=== PATIENT | male | born 1935 | race Caucasian/White ===

== ENCOUNTER 2016-05-27 07:47 | Day surgery (SDC) | payer MEDICARE ==
[~2016-05-27 07:47] MED LIST: AMIO200 PO; APIX5TAB PO; B COTAB3 PO; CARV12.52 PO; FISH1000 PO; FLAX100013 PO; MULT1TAB PO; SPIR25TA PO; VITA400C70 PO; VITA500T10 PO; [UNRECOGNIZED DRUG - CODE] PO
[2016-05-27] MEDS ORDERED: [UNRECOGNIZED DRUG - CODE] PO (08:27)
[2016-05-27] MEDS ORDERED: VITA10007 PO (08:27)
[2016-05-27] MEDS ORDERED: SPIR25TA PO (08:27)
[2016-05-27] MEDS ORDERED: AMIO200T PO (08:27)
[2016-05-27] MEDS ORDERED: CENTTAB PO (08:27)
[2016-05-27] MEDS ORDERED: APIX2.5T PO (08:27)
[2016-05-27] MEDS ORDERED: FLAX10006 PO (08:27)
[2016-05-27] MEDS ORDERED: VITACAP9 PO (08:27)
[2016-05-27] MEDS ORDERED: E-10CAP PO (08:27)
[2016-05-27] MEDS ORDERED: SACU1TAB7 PO (08:27)
[2016-05-27] MEDS ORDERED: CARV25TA PO (08:27)
[2016-05-27] MEDS ORDERED: ESSE250T PO (08:27)
[2016-05-27] MEDS ORDERED: CYAN1TAB24 SL (08:27)
[2016-05-27] MEDS ORDERED: METOPROLOL TARTRATE 25 MG TAB PO PRN (09:00)
[2016-05-27] MEDS ORDERED: SODIUM CHLORID 0.9% 500 ML IV SCH (09:00)
[2016-05-27] MEDS ORDERED: INSULIN HUMAN REGULAR 1,000 UNITS/10 ML VIAL SQ PRN (09:00)
[2016-05-27] MEDS ORDERED: LACTATED RINGER'S 1000 ML IV SCH (09:00)
--- NOTE | 2016-05-28 14:05 | EKG ---
Date Performed: 05/27/2016 Time Performed: 09:38:50 PTAGE: 80 years EKG: Atrial pacing Prolonged QT interval Possible inferior infarct - age undetermined Possible a nteroseptal infarct - age undetermined Lateral T wave changes may be due to myocardial ischemia Low Q RS voltages in precordial leads Abnormal ECG Since PREVIOUS TRACING , no significant change noted DOCTOR: Faisal Elizabeth Interpretating Date/Time 05/28/2016 13:59:36
--- NOTE | 2016-05-28 14:06 | EKG ---
Date Performed: 05/27/2016 Time Performed: 08:09:52 PTAGE: 80 years EKG: Sinus rhythm . Short WV interval Inferior infarct - age undetermined Lateral T wave changes may be due to myocardi al ischemia Since previous tracing, no significant change noted Abnormal ECG PREVIOUS TRACING : 03/08/2016 05.03 DOCTOR: Faisal Elizabeth Interpretating Date/Time 05/28/2016 13:59:53
--- NOTE | 2016-06-06 09:25 | MR ---
cc: PHILIP PARDO M.D. DATE: 05/27/2016 PROCEDURE Cardioversion. INDICATION Mr. Okeefe is a 80-year-old gentleman with congestive heart failure, atrial fibrillation, previous ablation and atrial fibrillation on anticoagulation, to undergo DC cardioversion. The risks, the nature and the benefit of the procedure are clearly stated to him. The risks include cardiac arrest, need for pacing, need for endotracheal intubation and even . The patient understood and agreed to proceed. PROCEDURE After written informed consent was obtained, the patient was brought to the cath unit where he was evaluated by the anesthesiologist. Once sedation was verified, anterolateral pads were placed. Subsequently, a 200 sync biphasic joule was delivered that converted the patient into sinus rhythm. The patient fully recuperated from anesthesia. No incident report. CONCLUSION Successful cardioversion. COMMENT AND RECOMMENDATION The patient is going to be observed and discharged home later today. MD ANGUS Andre/TRACEYL /8:55 AM /9:17 AM
[2016-09-04] MEDS ORDERED: WHEEMIS3 (15:57)
[2016-09-06] MEDS ORDERED: ALLO300T2 PO (08:15)
[2016-09-06] MEDS ORDERED: OXYC1TAB36 PO (08:15)
[2016-09-06] MEDS ORDERED: MAGN400T3 PO (08:15)
[2016-09-06] MEDS ORDERED: AMIO200T PO (08:15)
[2016-09-06] MEDS ORDERED: APIX2.5T PO (08:15)
[2016-09-06] MEDS ORDERED: SPIR25TA PO (08:15)
[2016-09-06] MEDS ORDERED: CENTTAB PO (08:15)
[2016-09-06] MEDS ORDERED: FURO20TA PO (08:15)
[2016-09-06] MEDS ORDERED: CIPR250T52 PO (08:15)
[2016-09-06] MEDS ORDERED: SACU1TAB PO (08:15)
[2016-09-06] MEDS ORDERED: CARV6.25 PO (08:15)
[2016-10-23] MEDS ORDERED: PERM5CRE11 TOPICAL (12:11)
[2016-10-23] MEDS ORDERED: NAPR500 PO (12:11)
[2016-10-25] MEDS ORDERED: HYDR-3133 PO (09:06)
== END 2016-05-27 10:00 | disposition home or self-care (01) ==
LOC: HSDC 07:47 → HDIC 07:49 → HSDC 10:00
PROVIDERS: ATTEND Internal Medicine Interventional Cardiology
DX: I48.91 Unspecified atrial fibrillation (principal); I11.0 Hypertensive heart disease with heart failure; I50.9 Heart failure, unspecified
CPT/HCPCS: 92960; 93005

== ENCOUNTER 2016-08-19 14:32 | Inpatient (IN) | payer MEDICARE ==
[~2016-08-19] VITALS: Ht 177.8 cm; Wt 143.5 kg
[~2016-08-19 14:32] MED LIST changes: -AMIO200 PO; +AMIO200T PO; +APIX2.5T PO; -APIX5TAB PO; -B COTAB3 PO; -CARV12.52 PO; +CARV25TA PO; +CENTTAB PO; +CYAN1TAB24 SL; +E-10CAP PO; +ESSE250T PO; -FISH1000 PO; -FLAX100013 PO; +FLAX10006 PO; -MULT1TAB PO; +SACU1TAB7 PO; +VITA10007 PO; -VITA400C70 PO; -VITA500T10 PO; +VITACAP9 PO; -[UNRECOGNIZED DRUG - CODE] PO
--- NOTE | 2016-08-21 10:13 | MH ---
cc: Solitario HAYES M.D. DATE OF ADMISSION: 08/22/2016 ADMISSION DIAGNOSIS Failed left total knee arthroplasty, now for revision total knee arthroplasty. HISTORY OF PRESENT ILLNESS This is a pleasant 80-year-old male who is being admitted today for removal of hardware and revision of left total knee arthroplasty due to pain and disability and failed left knee arthroplasty. PAST MEDICAL HISTORY The patient had the left total knee done 12 years ago with a partial knee replacement and then had to have the tibia plated five years ago to prevent collapse. OTHER PAST HISTORY 1. The patient has a history of arthritis. 2. Heart disease, has a defibrillator. 3. Hypertensive. 4. Low back pain. CURRENT MEDICATIONS Include: 1. Amiodarone. 2. Carvedilol. 3. Eliquis, which is stopped before surgery. 4. Entresto. PREVIOUS SURGERIES 1. Both left and right knee surgeries. 2. Three cardiac ablations. 3. Cardioverter implant. 4. Hemorrhoid surgery. REVIEW OF SYSTEMS Noncontributory. FAMILY HISTORY Noncontributory. SOCIAL HISTORY The patient does not smoke, does drink some. ALLERGIES No allergies. PHYSICAL EXAMINATION GENERAL: We find an 80-year-old male, well-developed, well-nourished, oriented x3, complaining of pain in his left knee. VITAL SIGNS: Blood pressure 118/70, pulse 76 and regular, respirations 18, temperature 97.7, pulse oximetry 97% on room air. HEENT: Eyes PERRLA, EOMI. Ears, nose, mouth clear. NECK: Supple. LUNGS: Clear. HEART: Regular rate. ABDOMEN: Soft. Positive bowel sounds, nontender. EXTREMITIES: Reveal the left knee to be tender with range of motion from almost full extension, 95 degrees of flexion. Neurovascularly intact to his toes. IMPRESSION AT THIS TIME Failing left partial knee replacement with plate and screws in the proximal tibia. PLAN Admission for removal of plate and screws and revision total knee arthroplasty left side. The patient understands the procedure well and risks involved. He is given a prescription for postoperative pain control in the office. Will plan on going home after surgical stay. He understands the use of Hibiclens scrub and Bactroban preoperatively. J. MD KRUPA Porter/TLL /9:39 AM /9:45 AM
[2016-08-22 06:26] VITALS: BP 107/71; PULSE 68; RESP 18; TEMP 97.8; O2SAT 96
[2016-08-22] MEDS ORDERED: LACTATED RINGER'S 1000 ML IV PRN (06:30)
[2016-08-22] MEDS ORDERED: SODIUM CHLORID 0.9% 500 ML IV PRN (06:30)
[2016-08-22] MEDS ORDERED: METOPROLOL TARTRATE 25 MG TAB PO PRN (06:30)
[2016-08-22] MEDS ORDERED: ceFAZolin 2 GM PREMIX 50 ML IV SCH (06:30)
[2016-08-22] MEDS ORDERED: VANCOMYCIN 1000 MG/NS 250 ML (for <70 kg) IV SCH ×2 (06:30)
[2016-08-22] MEDS ORDERED: INSULIN HUMAN REGULAR 1,000 UNITS/10 ML VIAL SQ PRN (06:30)
[2016-08-22] MEDS ORDERED: ACETAMINOPHEN 1000 MG/100 ML VIAL IV ONE (07:53)
[2016-08-22] MEDS: SODIUM CHLORIDE 0.9% IV SCH ×4 (08:00→11:40)
[2016-08-22] MEDS: TRANEXAMIC ACID IV SCH ×4 (08:00→11:40)
--- NOTE | 2016-08-22 08:23 | HHI.FF ---
Face to Face Verification Diagnosis: (1) Status post revision of total replacement of left knee Physical Therapy Gait training Knee: Total knee, Protocol: Left, Full weight bearing Canvas Knee Splint: When in bed & 2 pillows btw thighs Nursing RN: 3 days/week x 2 weeks Nursing: Edwin teaching, Dressing changes Dressing Changes: Daily dressing change, 4x4s, Gauze, Paper tape I have seen patient Florentin Okeefe on 08/22/16. My clinical findings support the need for the requested home health care services because: Limited ability to care for self High risk of falls I certify that my clinical findings support that this patient is homebound because: Unsteady gait/balance Solitario Dunn MD Aug 22, 2016 08:23
[2016-08-22] MEDS ORDERED: CPMMACHINE (08:25)
[2016-08-22] MEDS ORDERED: MISC-163 (08:25)
[2016-08-22] MEDS ORDERED: WALKER WHEELS/F1 MIS (08:25)
[2016-08-22] MEDS ORDERED: diphenhydrAMINE HCL 50 MG/ML VIAL IV PRN (08:30)
[2016-08-22] MEDS ORDERED: TRANEXAMIC ACID INJ 0 MG in SODIUM CHLORIDE 0.9% INJ 100 ML IV SCH (08:30)
[2016-08-22] MEDS ORDERED: TEMAZEPAM 15 MG CAP PO PRN (08:30)
[2016-08-22] MEDS ORDERED: ACETAMINOPHEN/HYDROcodone 325 MG/7.5 MG TAB PO PRN (08:30)
[2016-08-22] MEDS ORDERED: NALOXONE HCL 0.4 MG/ML AMP IV PRN (08:30)
[2016-08-22] MEDS ORDERED: ONDANSETRON HCL 4 MG/2 ML VIAL IVP PRN (08:30)
[2016-08-22] MEDS ORDERED: ACETAMINOPHEN 325 MG TAB PO PRN (08:30)
[2016-08-22] MEDS ORDERED: SODIUM CHLORIDE 0.9% FLUSH 5 ML FLUSH IVF PRN (08:30)
[2016-08-22] MEDS ORDERED: Post-op Orders (for Pharmacy) MISC XX ONE (08:30)
[2016-08-22] MEDS ORDERED: ceFAZolin INJ 1,000 MG VIAL TOP ONE (08:53)
[2016-08-22] MEDS ORDERED: SPIRONOLACTONE 25 MG TAB PO SCH (09:00)
[2016-08-22] MEDS ORDERED: CARVEDILOL 12.5 MG TAB PO SCH (09:00)
[2016-08-22] MEDS ORDERED: MULTIVITAMIN HEMATINIC THERAPEUTIC TAB PO SCH (09:00)
[2016-08-22] MEDS ORDERED: NON-FORMULARY DRUG (Flaxseed (Linseed) (Flaxseed Oil) 1,000 MG) PO SCH (09:00)
[2016-08-22] MEDS ORDERED: TOBRAMYCIN SULFATE 1200 MG VIAL ONE (09:02)
[2016-08-22] MEDS ORDERED: BUPIVACAINE HCL PF 0.5% 30 ML VIAL NERV BLOCK ONE (10:11)
[2016-08-22] MEDS ORDERED: TOBRAMYCIN SULFATE 1200 MG VIAL OTHER ONE (10:23)
[2016-08-22 12:29] LABS: BLOOD GAS BASE EXCESS -4.1 mmol/L (-2-2); BLOOD GAS CARBOXYHEMOGLOBIN 1.7 % (0-4); BLOOD GAS HCO3 20 mmol/L (22-26); BLOOD GAS METHEMOGLOBIN 1.3 % (0-2); BLOOD GAS O2 HGB SATURATION 96 % (90-100); BLOOD GAS OXYGEN CONTENT 18.6 Vol % (12.0-20.0); BLOOD GAS PCO2 34 mmHg (38-42); BLOOD GAS PO2 218 mmHg (61-120); BLOOD GAS TOTAL HGB 13.4 G/DL (12.0-16.0); CRITICAL VALUE NO; OXYGEN DEVICE VENTILATOR; TEMP CORR TO 98.6
[2016-08-22 12:30] LABS: DRAW SITE ART LINE; STAT YES
[2016-08-22 12:37] LABS: HEMATOCRIT 38.3 % (39.0-51.0); REVIEW FLAG FINAL
[2016-08-22] MEDS ORDERED: ePHEDrine/NS 25 MG/5 ML SYR IV ONE (13:21)
[2016-08-22] MEDS ORDERED: ONDANSETRON HCL 4 MG/2 ML VIAL IV PUSH ONE (13:21)
[2016-08-22] MEDS ORDERED: PROPOFOL 200 MG/20 ML AMP IV ONE (13:21)
[2016-08-22] MEDS ORDERED: NORMOSOL R INJ 1,000 ML IV ONE (13:23)
[2016-08-22] MEDS ORDERED: LACTATED RINGER'S 1000 ML INJ 2,000 ML IV ONE (13:23)
[2016-08-22] MEDS ORDERED: ceFAZolin INJ 1,000 MG VIAL IV ONE (13:25)
[2016-08-22] MEDS ORDERED: fentaNYL CITRATE 250 MCG/5 ML AMP ONE (14:55)
[2016-08-22] MEDS ORDERED: MIDAZOLAM HCL 2 MG/2 ML VIAL ONE (14:55)
[2016-08-22] MEDS ORDERED: DO NOT ADM ANY ANTICOAGULANT DRUGS PRN (15:15)
[2016-08-22] MEDS ORDERED: NOREPINEPHRINE 4 MG/4 ML AMP ONE (15:30)
--- NOTE | 2016-08-22 15:35 | RADRPT ---
EXAM DATE/TIME: 08/22/2016 14:35 [facility] COMPARISON: TIBIA LEFT (AP/LAT), August 25, 2009, 9:24. INDICATIONS : Post op left knee. MEDICAL HISTORY : None. SURGICAL HISTORY : None. ENCOUNTER: Initial ACUITY: 1 day PAIN SCORE: Non-responsive. LOCATION: Left knee FINDINGS: Postoperative total knee arthroplasty with long femoral and tibial shaft components. Prominent deep soft tissue gas anteriorly. Alignment bony structures is maintained. CONCLUSION: Total knee arthroplasty with near-anatomic alignment. Sam Frank MD on August 22, 2016 at 15:20 Board Certified Radiologist. This report was verified electronically.
[2016-08-22] MEDS ORDERED: LACTATED RINGER'S 1000 ML INJ 500 ML IV ONE (15:45)
[2016-08-22] MEDS ORDERED: NOREPINEPHRINE 4 MG/D5W 250 ML IV SCH (15:45)
--- NOTE | 2016-08-22 16:11 | PD.CONS ---
HPI Service Family Medicine Consult Requested By Dr. Dunn Reason for Consult Post-op management of chronic medical conditions Primary Care Physician Hussein Lynn MD History of Present Illness 80 yo with PMH of AFib on Eliquis, HTN presenting for revision of left knee replacement. Seen in PACU POD 0. At present he feels well but tired. He also has some lower back discomfort relieved by sitting up. He tolerated the procedure well but required neosynephrine to maintain blood pressures. BP was running low (80s/40s) in PACU and Levophed drip started by anesthesia. He denies CP/SOB, abdominal pain, headache, or vision changes. He has fatigue. ( Marek Hernandez MD R1) Review of Systems Constitutional: COMPLAINS OF: Fatigue, DENIES: Fever Eyes: DENIES: Eye pain Ears, nose, mouth, throat: DENIES: Ear Pain Respiratory: DENIES: Shortness of breath Cardiovascular: DENIES: Chest pain, Palpitations Gastrointestinal: DENIES: Abdominal pain Genitourinary: DENIES: Dysuria Musculoskeletal: COMPLAINS OF: Back pain Integumentary: DENIES: Rash Hematologic/lymphatic: DENIES: Bruising Neurologic: DENIES: Headache Psychiatric: DENIES: Confusion, Depression (Marek Hernandez MD R1) Past Family Social History Past Medical History Atrial fibrillation on Eliquis, s/p ablation 03/08/16 HTN Back pain Past Surgical History L knee replacement 2002 Revision left knee replacement 08/22/16 ICD placement Hemorrhoid surgery (Marek Hernandez MD R1) Allergies: Coded Allergies: No Known Allergies (Verified , 08/22/16) Family History No major medical problems Social History Tobacco: does not smoke Alcohol: drinks 2-3 [place] & cokes a day Drugs: Never used illicit drugs (Marek Hernandez MD R1) Physical Exam Vital Signs Vital Signs Date Time Temp Pulse Resp B/P Pulse Ox O2 Delivery O2 Flow Rate FiO2 08/22/16 06:26 97.8 68 18 107/71 96 Physical Exam GENERAL: WDWN elderly white male sitting up in bed fatigued but in NAD SKIN: No rashes, ecchymoses or lesions. Cool and dry. HEAD: NC/AT EYES: PERRL. EOMI. No conjunctival injection or drainage. ENT: MMM, OP without erythema, tonsillar swelling, or exudate. NECK: No JVD. CARDIOVASCULAR: NRRR. Normal S1/S2. No MRG. RESPIRATORY: CTAB. No crackles or wheezes. GASTROINTESTINAL: Abdomen soft, non-distended, non-tender. No hepato- splenomegaly or palpable masses. MUSCULOSKELETAL: Extremities without clubbing, cyanosis, or edema. Compression bracing in place around left knee. NEUROLOGICAL: Awake and alert. Cranial nerves II through XII grossly intact. Moves all extremities without difficulty. Normal speech. Laboratory Laboratory Tests Test 08/22/16 08/22/16 08/22/16 06:15 12:15 12:20 Blood Type B POSITIVE Antibody Screen NEGATIVE Hemoglobin 13.3 Hematocrit 38.3 Blood Gas Puncture Site ART LINE Blood Gas Patient Temperature 98.6 Blood Gas HCO3 20 Blood Gas Base Excess -4.1 Blood Gas Oxygen Saturation 96 Arterial Blood pH 7.38 Arterial Blood Partial 34 Pressure CO2 Arterial Blood Partial 218 Pressure O2 Arterial Blood Oxygen Content 18.6 Arterial Blood 1.7 Carboxyhemoglobin Arterial Blood Methemoglobin 1.3 Blood Gas Hemoglobin 13.4 Oxygen Delivery Device VENTILATOR Blood Gas Ventilator Setting Date/Time Procedure Status Source Growth 08/22/16 10:09 Gram Stain - Final Resulted Wound Knee 08/22/16 10:09 Wound Culture Resulted Wound Knee Pending 08/22/16 10:09 Fungal Smear Received Wound Knee Pending 08/22/16 10:09 Fungal Culture Received Wound Knee Pending 08/22/16 10:09 Acid Fast Stain Received Wound Knee Pending 08/22/16 10:09 Mycobacterial Culture Received Wound Knee Pending (Marek Hernandez MD R1) Result Diagram: 08/22/16 1215 Imaging Last Impressions Knee X-Ray 08/22/16 0819 Signed Impressions: Service Date/Time: August 14:35 - CONCLUSION: Total knee arthroplasty with near-anatomic alignment. Sam Frank MD (Marek Hernandez MD R1) Assessment and Plan Assessment and Plan 80 year old male with PMH of AFib on Eliquis, HTN presenting with: Code Status Full code (Marek Hernandez MD R1) Attending Attestation Patient seen and examined, discussed with resident team. I agree with assessment and management as documented and discussed with me. Florentin Okeefe is an 80 yo gentleman with a fib, AICD placement for which medical team was consulted after orthopedic surgery. Apparently, during his surgery, he required pressure support with neosynephrine. Postoperatively in PACU, he remained hypotensive and Levophed drip was initiated. He reports feeling tired, weak, and lightheaded. He denies chest pain, palpitations, SOB. Will transfer patient to ICU for overnight monitoring and continued blood pressure support. Wean Levophed as able. Will need to address residential anticoagulation; he is currently on Lovenox postoperatively, but will need resumption of Eliquis after completion of Lovenox course. (Embre Blanco MD) Problem List: (1) Status post revision of total replacement of left knee Status: Acute Plan: POD 0 s/p revision L total knee * Bracing per ortho * Pain control with Percocet 5 and 10 PRN pain 3-5 and 6-10, respectively * PT eval & treat * Manage post-operative hypotension as below * Telemetry for post-op monitoring of patient with cardiac history (2) Postoperative hypotension Status: Acute Plan: Needed neosynephrine intraoperatively, currently requiring Levophed drip to maintain MAP > 60. * Transfer to ICU for closer monitoring * Continue Levophed drip, titrate as tolerated * Likely due to anesthesia; if resolves overnight can be transferred to floor tomorrow (3) Atrial fibrillation Status: Chronic Plan: Eliquis currently being held, CHADS2-Vasc score of 3 --> 3.2% stroke risk per year, HAS-BLED score 2 --> intermediate risk of bleed. Likely benefits of anticoagulation outweigh risks. * Holding home Eliquis after surgery * On lovenox 30 mg BID per ortho * Will need resumption of anticoagulation with Eliquis after lovenox D/C'd (4) Essential hypertension Status: Chronic Plan: Hold home hypertensive medications due to postoperative hypotension above (5) FEN/PPX Status: Acute Plan: Fluids: PO only Elecs: Monitor and replete as needed Nutrition: Advance diet as tolerated DVT: Lovenox [address] Chacho Blanco (Marek Hernandez MD R1) Problem Qualifiers (1) Atrial fibrillation: Qualified Code: I48.0 - Paroxysmal atrial fibrillation Marek Hernandez MD R1 Aug 22, 2016 16:11 Ember Blanco MD Aug 22, 2016 20:51
[2016-08-22 16:13] LABS: HEMATOCRIT 35.3 % (39.0-51.0); REVIEW FLAG FINAL
[2016-08-22] MEDS: LACTATED RINGER'S 1000 ML INJ 1,000 ML IV SCH ×2 (16:40→21:59)
[2016-08-22] MEDS: MORPHINE SULFATE 30 MG/30 ML PCA IV SCH (16:43)
[2016-08-22 19:50] VITALS: O2SAT 99
[2016-08-22 20:00] VITALS: BP 134/69; PULSE 66; RESP 15; TEMP 97.7; O2SAT 98
[2016-08-22] MEDS: CYANOCOBALAMIN 1,000 MCG TAB PO SCH ×2 (21:00→21:59)
[2016-08-22] MEDS: SODIUM CHLORIDE 0.9% FLUSH 5 ML FLUSH IVF SCH (21:00)
[2016-08-22] MEDS: PCA - TOTAL MG MORPHINE DELIVERED PER SHIFT SCH (22:00)
[2016-08-22] MEDS ORDERED: FLUMAZENIL 0.5 MG/5 ML VIAL IV PUSH PRN (22:30)
[2016-08-22] MEDS ORDERED: LORazepam 2 MG/ML VIAL IV PUSH PRN (22:30)
[2016-08-22] MEDS ORDERED: LORazepam 2 MG TAB PO PRN (22:30)
[2016-08-22] MEDS ORDERED: LORazepam 1 MG TAB PO PRN (22:30)
[2016-08-22 23:00] VITALS: PULSE 66
--- NOTE | 2016-08-22 23:08 | PD.CONS ---
[facility] Service Critical Care Medicine Consult Requested By Primary Care Physician Hussein Lynn MD History of Present Illness 80 with history of atrial fibrillation hypertension now presenting for removal of hardware and revision of left total knee arthroplasty due to pain and disability and failure of left knee arthroplasty. Hypotension - Post general anesthesia - Volume resuscitation with IV fluids - Off Levophed and Benigno-Synephrine during my exam - Resolved Failure total knee endoprosthesis - Status post revision of total replacement of left knee - Postop day 0 - PT and OT eval and treat - Ancef postoperatively - Management per orthopedic surgeon Atrial fibrillation - Chronic and rate controlled - Resume Eliquis when okay with the surgeon - Currently bridged with Lovenox twice a day - Continue amiodarone History of Essential hypertension - Hold home by mouth meds do to hypotension - Resume when hemodynamically improved DVT GI prophylaxis - Regular diet - Lovenox twice a day Critical Care: The total critical care time was 35 minutes. Time to perform other separately billable procedures was not included in the critical care time. Review of Systems Constitutional: DENIES: Diaphoretic episodes, Fatigue, Fever, Weight gain, Weight loss, Chills, Dizziness, Change in appetite, Night Sweats Endocrine: DENIES: Heat/cold intolerance, Polydipsia, Polyuria, Polyphagia Eyes: DENIES: Blurred vision, Diplopia, Eye inflammation, Eye pain, Vision loss , Photosensitivity, Double Vision Ears, nose, mouth, throat: DENIES: Tinnitus, Hearing loss, Vertigo, Nasal discharge, Oral lesions, Throat pain, Hoarseness, Ear Pain, Running Nose, Epistaxis, Sinus Pain, Toothache, Odynophagia Respiratory: DENIES: Apneas, Cough, Snoring, Wheezing, Hemoptysis, Sputum production, Shortness of breath Cardiovascular: DENIES: Chest pain, Palpitations, Syncope, Dyspnea on Exertion , PND, Lower Extremity Edema, Orthopnea, Claudication Gastrointestinal: DENIES: Abdominal pain, Black stools, Bloody stools, Constipation, Diarrhea, Nausea, Vomiting, Difficulty Swallowing, Anorexia Genitourinary: DENIES: Sexual dysfunction, Urinary frequency, Urinary incontinence, Urgency, Hematuria, Dysuria, Nocturia, Penile Discharge, Testicular Pain, Testicular Swelling Musculoskeletal: COMPLAINS OF: Joint pain, Stiffness, DENIES: Muscle aches, Joint Swelling, Back pain, Neck pain Integumentary: DENIES: Abnormal pigmentation, Nail changes, Pruritus, Rash Hematologic/lymphatic: DENIES: Bruising, Lymphadenopathy Immunologic/allergic: DENIES: Eczema, Urticaria Neurologic: COMPLAINS OF: Abnormal gait, DENIES: Headache, Localized weakness , Paresthesias, Seizures, Speech Problems, Tremor, Poor Balance Psychiatric: DENIES: Anxiety, Confusion, Mood changes, Depression, Hallucinations, Agitation, Suicidal Ideation, Homicidal Ideation, Delusions Past Family Social History Allergies: Coded Allergies: No Known Allergies (Verified , 08/22/16) Past Medical History Atrial fibrillation on Eliquis Status post ablation in 03/08/16 Hypertension Chronic back pain Past Surgical History Hemorrhoid Left knee replacement 2002 Revision of left knee replacement today ICD Reported Medications Reported Meds & Active Scripts Active Reported E-1000 (Vitamin E) 1,000 Unit Cap 1,000 Units PO DAILY Vitamin C (Ascorbic Acid) 1,000 Mg Tab 1,000 Mg PO DAILY Vitamin B Complex-C (B Complex W/ C) 1 Cap Cap 1 Tab PO DAILY Spironolactone 25 Mg Tab 25 Mg PO DAILY Magnesium 250 Mg Tab 500 Mg PO DAILY Flaxseed Oil (Flaxseed (Linseed)) 1,000 Mg Cap 1,000 Mg PO DAILY Entresto (Sacubitril-Valsartan) 49-51 Mg Tab 1 Tab PO DAILY Eliquis (Apixaban) 2.5 Mg Tab 2.5 Mg PO BID Centrum Silver (Multiple Vitamins W/ Minerals) 1 Tab 1 Tab PO DAILY Carvedilol 25 Mg Tab 25 Mg PO BID B12 (Cyanocobalamin) 1,000 Mcg Tab 5,000 Mcg SL BID Amiodarone (Amiodarone HCl) 200 Mg Tab 200 Mg PO DAILY Active Ordered Medications Current Medications Medications (Trade) Dose Ordered Sig/Kenny Route PRN Reason Start Time Stop Time Status Last Admin Dose Admin Chlorhexidine Gluconate (Hibiclens 4% Top Soln) 1 applic ONCE TOPICAL 08/22/16 06:30 08/25/16 06:29 Amiodarone HCl (Cordarone) 200 mg DAILY PO 08/22/16 09:00 Ascorbic Acid (Vitamin C) 1,000 mg DAILY PO 08/22/16 09:00 Vitamin B Complex/ Vitamin C (Allbee C) 1 tab DAILY PO 08/23/16 09:00 Carvedilol (Coreg) 25 mg BID PO 08/22/16 09:00 Hold Patient Own Medication PT OWN MED: ENTRE... DAILY PO 08/23/16 09:00 Future Hold Spironolactone (Aldactone) 25 mg DAILY PO 08/22/16 09:00 Hold Cyanocobalamin (Vitamin B12) 5,000 mcg BID PO 08/22/16 21:00 Magnesium Oxide (Mag-Ox) 400 mg DAILY PO 08/23/16 09:00 Vitamin E 800 units 800 units DAILY PO 08/23/16 09:00 Lactated Ringer's (Lr 1000 ml Inj) 1,000 ml @ 80 mls/hr [id number] IV 08/22/16 08:19 08/22/16 21:59 IV Flush (NS Flush) 2 ml UNSCH PRN IVF FLUSH AFTER USING IV ACCESS 08/22/16 08:30 IV Flush 2 ml 2 ml BID IVF 08/22/16 09:00 Cefazolin Sodium/ Sodium Chloride (Ancef Inj/NS Inj) 100 ml @ 200 mls/hr Q6H IV 08/22/16 16:00 08/23/16 04:29 08/22/16 21:59 Enoxaparin Sodium (Lovenox Inj) 30 mg Q12H SQ 08/23/16 13:00 Acetaminophen/ Hydrocodone Bitart (Bowie 7.5-325 Mg) 1 tab Q4H PRN PO PAIN SCALE 3 TO 5 08/22/16 08:30 Acetaminophen/ Hydrocodone Bitart (Bowie 7.5-325 Mg) 2 tab Q4H PRN PO PAIN SCALE 5 TO 10 08/22/16 08:30 Acetaminophen (Tylenol) 650 mg Q6H PRN PO pain and temp over 101 08/22/16 08:30 Multivitamins/ Minerals Therapeutic (Theragran M Tab) 1 tab BID PO 08/23/16 21:00 10/22/16 20:59 Ondansetron HCl (Zofran Inj) 4 mg Q6H PRN IVP NAUSEA OR VOMITING 08/22/16 08:30 Docusate Sodium (Colace) 100 mg BID PO 08/23/16 21:00 Temazepam (Restoril) 15 mg HS PRN PO SLEEP 08/22/16 08:30 Naloxone HCl (Narcan Inj) 0.4 mg UNSCH PRN IV RESPIRATORY RATE LESS THAN 10 4/6/17 08:30 Diphenhydramine HCl (Benadryl Inj) 25 mg Q6H PRN IV ITCHING 08/22/16 08:30 Morphine Sulfate (Morphine 1 Mg/ ml RENEWALS REPRESENTATIVE) 30 mg UNSCH IV 08/22/16 08:30 08/22/16 16:43 RENEWALS REPRESENTATIVE Dosage Infused (Pha) 1 Q8HR .XX 08/22/16 14:00 Miscellaneous Information ALL NURSING DEPARTME... UNSCH PRN .XX SEE LABEL COMMENTS 08/22/16 15:15 08/23/16 15:14 Norepinephrine Bitartrate (Levophed-Dextrose Drip) 250 ml @ 0 mls/hr TITRATE IV 08/22/16 15:45 Folic Acid (Folate) 1 mg DAILY PO 08/23/16 09:00 08/28/16 08:59 Thiamine HCl (Vitamin B1) 100 mg DAILY PO 08/23/16 09:00 Flumazenil (Romazicon Inj) 0.2 mg Q1M PRN IV PUSH SEE LABEL COMMENTS 08/22/16 22:30 Lorazepam (Ativan) 1 mg Q4H PRN PO CIWA 8 - 10 08/22/16 22:30 Lorazepam (Ativan) 2 mg Q2H PRN PO CIWA 11-14 08/22/16 22:30 Lorazepam (Ativan Inj) 2 mg Q15M PRN IV PUSH CIWA > 20 08/22/16 22:30 Family History Noncontributory Social History Negative 3 Physical Exam Vital Signs Vital Signs Date Time Temp Pulse Resp B/P Pulse Ox O2 Delivery O2 Flow Rate FiO2 08/22/16 20:00 97.7 66 15 134/69 98 08/22/16 18:50 98.4 65 20 115/73 98 Nasal Cannula 2 08/22/16 18:45 65 20 115/73 98 Nasal Cannula 2 08/22/16 18:30 64 20 113/72 98 Nasal Cannula 2 08/22/16 18:15 62 20 114/72 99 Nasal Cannula 2 08/22/16 18:00 64 20 111/68 99 Nasal Cannula 2 08/22/16 17:45 64 20 115/71 99 Nasal Cannula 2 08/22/16 17:30 64 20 113/73 99 Nasal Cannula 2 4/6/17 17:15 65 20 109/59 93 Nasal Cannula 2 08/22/16 17:00 63 20 111/68 99 Nasal Cannula 2 08/22/16 16:45 64 20 119/66 98 Nasal Cannula 2 08/22/16 16:43 16 08/22/16 16:30 65 20 120/71 98 Nasal Cannula 2 08/22/16 16:15 64 20 113/66 97 Nasal Cannula 2 08/22/16 16:00 66 20 102/65 97 Nasal Cannula 2 08/22/16 15:45 67 20 111/68 97 Nasal Cannula 2 08/22/16 15:30 65 20 89/57 97 Nasal Cannula 2 08/22/16 15:15 60 20 86/54 95 Nasal Cannula 2 08/22/16 15:00 64 20 97/60 96 Nasal Cannula 2 08/22/16 14:40 98.4 62 20 98/58 97 Nasal Cannula 2 08/22/16 06:26 97.8 68 18 107/71 96 Physical Exam GENERAL: Obese elderly man. SKIN: Warm and dry. HEAD: Normocephalic. EYES: No scleral icterus. No injection or drainage. NECK: Supple, trachea midline. No JVD or lymphadenopathy. CARDIOVASCULAR: Regular rate and rhythm without murmurs, gallops, or rubs. RESPIRATORY: Breath sounds equal bilaterally. No accessory muscle use. GASTROINTESTINAL: Abdomen soft, non-tender, nondistended. MUSCULOSKELETAL: No cyanosis, or edema. BACK: Nontender without obvious deformity. No CVA tenderness. EXTREMITIES: Status post left knee arthroplasty, wound is clean without signs of infection inflammation or bleeding Laboratory Laboratory Tests Test 08/22/16 08/22/16 08/22/16 08/22/16 06:15 12:15 12:20 15:51 Blood Type B POSITIVE Antibody Screen NEGATIVE Hemoglobin 13.3 12.1 Hematocrit 38.3 35.3 Blood Gas Puncture Site ART LINE Blood Gas Patient Temperature 98.6 Blood Gas HCO3 20 Blood Gas Base Excess -4.1 Blood Gas Oxygen Saturation 96 Arterial Blood pH 7.38 Arterial Blood Partial 34 Pressure CO2 Arterial Blood Partial 218 Pressure O2 Arterial Blood Oxygen Content 18.6 Arterial Blood 1.7 Carboxyhemoglobin Arterial Blood Methemoglobin 1.3 Blood Gas Hemoglobin 13.4 Oxygen Delivery Device VENTILATOR Blood Gas Ventilator Setting Date/Time Procedure Status Source Growth 08/22/16 10:09 Gram Stain - Final Resulted Wound Knee 08/22/16 10:09 Wound Culture Resulted Wound Knee Pending 08/22/16 10:09 Fungal Smear - Final Resulted Wound Knee NO FUNGAL ELEMENTS SEEN. 08/22/16 10:09 Fungal Culture Resulted Wound Knee Pending 08/22/16 10:09 Acid Fast Stain Received Wound Knee Pending 08/22/16 10:09 Mycobacterial Culture Received Wound Knee Pending Result Diagram: 08/22/16 1551 Imaging Last 24 hours Impressions Knee X-Ray 08/22/16 0819 Signed Impressions: Service Date/Time: August 14:35 - CONCLUSION: Total knee arthroplasty with near-anatomic alignment. MD Sabiha Pérez Jan MD Aug 22, 2016 23:08
[2016-08-23] VITALS (13 sets, daily range): BP systolic 95–134; BP diastolic 41–57; PULSE 69–90; RESP 10–22; TEMP 97.6–99.1; O2SAT 22–98
[2016-08-23 04:56] LABS: HEMATOCRIT 35.1 % (39.0-51.0); MEAN CELL VOLUME 96.6 FL (80.0-100.0); MEAN CORPUSCULAR HEMOGLOBIN 32.8 PG (27.0-34.0); MEAN CORPUSCULAR HGB CONC 33.9 % (32.0-36.0); PLATELET COUNT 131 TH/MM3 (150-450); RED BLOOD COUNT 3.63 MIL/MM3 (4.50-5.90); RED CELL DISTRIBUTION WIDTH 13.4 % (11.6-17.2); REVIEW FLAG FINAL; WHITE BLOOD COUNT 11.7 TH/MM3 (4.0-11.0)
[2016-08-23 05:25] LABS: ALT (GPT) 26 U/L (12-78); ANION GAP 10 MEQ/L (5-15); AST (GOT) 27 U/L (15-37); BICARBONATE 23.2 MEQ/L (21.0-32.0); BLOOD UREA NITROGEN 17 MG/DL (7-18); CHLORIDE 109 MEQ/L (98-107); GLOMERULAR FILTRATION RATE 68 ML/MIN (>89); SODIUM (NA) 142 MEQ/L (136-145)
[2016-08-23 05:34] LABS: ALKALINE PHOSPHATASE 55 U/L (45-117); TOTAL BILIRUBIN ADULT 0.5 MG/DL (0.2-1.0)
[2016-08-23] MEDS: PCA - TOTAL MG MORPHINE DELIVERED PER SHIFT SCH ×3 (06:00→22:00)
[2016-08-23] MEDS: CHLORHEXIDINE GLUCONATE 4% SOLN 120 ML BTL TOPICAL SCH (06:30)
[2016-08-23] MEDS: SODIUM CHLORIDE 0.9% FLUSH 5 ML FLUSH IVF SCH ×2 (07:18→21:00)
--- NOTE | 2016-08-23 07:52 | PD.ORT.PN ---
Subjective Subjective Remarks Pt complaining of being in bed too long. No pain in leg or knee. Objective Vitals Vital Signs Date Time Temp Pulse Resp B/P Pulse Ox O2 Delivery O2 Flow Rate FiO2 08/23/16 07:00 94 Nasal Cannula 2.00 08/23/16 06:00 72 08/23/16 06:00 19 08/23/16 04:00 97.6 72 11 126/56 96 08/23/16 04:00 72 08/23/16 02:00 73 08/23/16 00:00 97.7 69 10 134/57 98 08/23/16 00:00 69 08/22/16 23:00 66 08/22/16 22:00 18 08/22/16 20:00 97.7 66 15 134/69 98 08/22/16 19:50 99 Nasal Cannula 4.00 08/22/16 18:50 98.4 65 20 115/73 98 Nasal Cannula 2 08/22/16 18:45 65 20 115/73 98 Nasal Cannula 2 08/22/16 18:30 64 20 113/72 98 Nasal Cannula 2 08/22/16 18:15 62 20 114/72 99 Nasal Cannula 2 08/22/16 18:00 64 20 111/68 99 Nasal Cannula 2 08/22/16 17:45 64 20 115/71 99 Nasal Cannula 2 08/22/16 17:30 64 20 113/73 99 Nasal Cannula 2 08/22/16 17:15 65 20 109/59 93 Nasal Cannula 2 08/22/16 17:00 63 20 111/68 99 Nasal Cannula 2 08/22/16 16:45 64 20 119/66 98 Nasal Cannula 2 08/22/16 16:43 16 08/22/16 16:30 65 20 120/71 98 Nasal Cannula 2 08/22/16 16:15 64 20 113/66 97 Nasal Cannula 2 08/22/16 16:00 66 20 102/65 97 Nasal Cannula 2 08/22/16 15:45 67 20 111/68 97 Nasal Cannula 2 08/22/16 15:30 65 20 89/57 97 Nasal Cannula 2 08/22/16 15:15 60 20 86/54 95 Nasal Cannula 2 08/22/16 15:00 64 20 97/60 96 Nasal Cannula 2 08/22/16 14:40 98.4 62 20 98/58 97 Nasal Cannula 2 I/O 08/22/16 08/22/16 08/22/16 08/23/16 08/23/16 08/23/16 07:00 15:00 23:00 07:00 15:00 23:00 Intake Total 3300 ml 1230 ml 635 ml Output Total 1000 ml 620 ml 275 ml Balance 2300 ml 610 ml 360 ml Intake IV Total 1230 ml 635 ml Other 3300 ml Output Urine Total 500 ml 620 ml 275 ml Estimated Blood Loss 500 ml # Bowel Movements 0 0 Result Diagram: 08/23/16 0435 08/23/16 0435 Imaging Last 24 hours Impressions Knee X-Ray 08/22/16 0819 Signed Impressions: Service Date/Time: August 14:35 - CONCLUSION: Total knee arthroplasty with near-anatomic alignment. Sam Frank MD Objective Remarks Dressing dry and intact. Moving toes well. No calf tenderness. Assessment & Plan Ortho Post Op Day #: 1 Problem List: Assessment and Plan Orthopedically doing well. To ortho floor when cleared by medical. Resume PT KENNETH. Solitario Dunn MD Aug 23, 2016 07:52
[2016-08-23] MEDS: THIAMINE HCL 100 MG TAB PO SCH (09:00)
[2016-08-23] MEDS: FOLIC ACID 1 MG TAB PO SCH (09:00)
[2016-08-23] MEDS: VITAMIN E 400 UNIT CAP PO SCH (09:00)
[2016-08-23] MEDS: MAGNESIUM OXIDE 400 MG TAB PO SCH (09:00)
[2016-08-23] MEDS: ASCORBIC ACID 500 MG TAB PO SCH (09:00)
[2016-08-23] MEDS: VITAMIN B COMPLEX/VIT C TAB PO SCH (09:00)
[2016-08-23] MEDS: CYANOCOBALAMIN 1,000 MCG TAB PO SCH ×2 (09:00→21:00)
[2016-08-23] MEDS ORDERED: MULTIVITAMINS/MINERALS THERAPEUTIC TAB PO SCH (09:00)
[2016-08-23] MEDS ORDERED: ENTRESTO PO SCH (09:00)
[2016-08-23] MEDS: AMIODARONE 200 MG TAB PO SCH (09:06)
[2016-08-23] MEDS: LACTATED RINGER'S 1000 ML INJ 1,000 ML IV SCH (09:07)
--- NOTE | 2016-08-23 10:58 | HHI.FPPN ---
Subjective Remarks Patient seen and examined. No acute events overnight. Levophed drip was discontinued at 7AM this morning and BP has been stable. He denies any specific complaints this morning, except for back pain, which is chronic and secondary to ankylosing spondylosis. (Yudi Recio MD R3) Objective Vitals Vital Signs Date Time Temp Pulse Resp B/P Pulse Ox O2 Delivery O2 Flow Rate FiO2 08/23/16 08:44 97 Nasal Cannula 2.00 08/23/16 08:00 84 08/23/16 08:00 98.3 84 17 123/52 94 08/23/16 07:00 94 Nasal Cannula 2.00 08/23/16 06:00 72 08/23/16 06:00 19 08/23/16 04:00 97.6 72 11 126/56 96 08/23/16 04:00 72 08/23/16 02:00 73 08/23/16 00:00 97.7 69 10 134/57 98 08/23/16 00:00 69 08/22/16 23:00 66 08/22/16 22:00 18 08/22/16 20:00 97.7 66 15 134/69 98 08/22/16 19:50 99 Nasal Cannula 4.00 08/22/16 18:50 98.4 65 20 115/73 98 Nasal Cannula 2 08/22/16 18:45 65 20 115/73 98 Nasal Cannula 2 08/22/16 18:30 64 20 113/72 98 Nasal Cannula 2 08/22/16 18:15 62 20 114/72 99 Nasal Cannula 2 08/22/16 18:00 64 20 111/68 99 Nasal Cannula 2 08/22/16 17:45 64 20 115/71 99 Nasal Cannula 2 08/22/16 17:30 64 20 113/73 99 Nasal Cannula 2 08/22/16 17:15 65 20 109/59 93 Nasal Cannula 2 08/22/16 17:00 63 20 111/68 99 Nasal Cannula 2 08/22/16 16:45 64 20 119/66 98 Nasal Cannula 2 08/22/16 16:43 16 08/22/16 16:30 65 20 120/71 98 Nasal Cannula 2 08/22/16 16:15 64 20 113/66 97 Nasal Cannula 2 08/22/16 16:00 66 20 102/65 97 Nasal Cannula 2 08/22/16 15:45 67 20 111/68 97 Nasal Cannula 2 08/22/16 15:30 65 20 89/57 97 Nasal Cannula 2 08/22/16 15:15 60 20 86/54 95 Nasal Cannula 2 08/22/16 15:00 64 20 97/60 96 Nasal Cannula 2 08/22/16 14:40 98.4 62 20 98/58 97 Nasal Cannula 2 I/O 08/22/16 08/22/16 08/22/16 08/23/16 08/23/16 08/23/16 07:00 15:00 23:00 07:00 15:00 23:00 Intake Total 3300 ml 1230 ml 635 ml Output Total 1000 ml 620 ml 275 ml Balance 2300 ml 610 ml 360 ml Intake IV Total 1230 ml 635 ml Other 3300 ml Output Urine Total 500 ml 620 ml 275 ml Estimated Blood Loss 500 ml # Bowel Movements 0 0 (Yudi Recio MD R3) Result Diagram: 08/23/16 0435 08/23/16 0435 Imaging Knee X-Ray 08/22/16 0819 Signed Impressions: Service Date/Time: August 14:35 - CONCLUSION: Total knee arthroplasty with near-anatomic alignment. Sam Frank MD Objective Remarks GENERAL: WDWN elderly white male lying in bed in NAD SKIN: No rashes, ecchymoses or lesions. Cool and dry. HEAD: NC/AT EYES: EOMI. No conjunctival injection or drainage. ENT: MMM, OP without erythema, tonsillar swelling, or exudate. NECK: No JVD. CARDIOVASCULAR: NRRR. Normal S1/S2. No MRG. Left dorsal pedis pulse is present but faint. RESPIRATORY: CTAB. No crackles or wheezes. GASTROINTESTINAL: Abdomen soft, non-distended, non-tender. No hepato- splenomegaly or palpable masses. MUSCULOSKELETAL: Extremities without clubbing, cyanosis, or edema. Able to move toes. Sensation in left leg intact. NEUROLOGICAL: Awake and alert. Normal speech. (Yudi Recio MD R3) A/P Assessment and Plan 80 year old male with PMH of AFib on Eliquis, HTN presenting with: Discharge Planning Patient should be stable for transfer out of ICU today given that he is no longer requiring pressors. Discharge to home vs. SNF pending ortho clearance. ( Yudi Recio MD R3) Attending Attestation Patient seen, examined, and discussed with resident team. I agree with assessment and management as documented and discussed with me. Pt denies significant complaints - postop knee pain and low back and neck pain. Otherwise, no chest pain, SOB, lightheadedness, weakness. Wean levophed as tolerated. Appreciate [place] and cardiology input. (Ember Blanco MD) Problem List: (1) Status post revision of total replacement of left knee Status: Acute Plan: POD 1 s/p revision L total knee secondary to pain and failed arthroplasty. Doing well. * Bracing per ortho * Pain control with Percocet 5 and 10 PRN pain 3-5 and 6-10, respectively * PT eval & treat (2) Postoperative hypotension Status: Acute Plan: Needed neosynephrine intraoperatively and required Levophed drip postoperatively. Likely due to anesthesia. Patient has been off drip since 7AM. BP stable. If BP continues to remain stable, will transfer to medical/ortho floor. (3) Atrial fibrillation Status: Chronic Plan: CHADS2-Vasc score of 3 --> 3.2% stroke risk per year, HAS-BLED score 2 -- > intermediate risk of bleed. * Eliquis was held prior to surgery. Patient currently on Lovenox 30 mg BID postoperatively per ortho * Will need resumption of anticoagulation with home Eliquis after lovenox D/C'd due to high risk. (4) Essential hypertension Status: Chronic Plan: Resume hole antihypertensive (5) Leukocytosis Status: Acute Plan: WBC 11.7. Likely reactive. VSSAF. Will continue to monitor. -Incentive spirometer (6) FEN/PPX Status: Acute Plan: Fluids: PO only Elecs: Monitor and replete as needed Nutrition: Advance diet as tolerated DVT: Lovenox [address] Blanco and Dr. Hernandez (Yudi Recio MD R3) Problem Qualifiers (1) Atrial fibrillation: Qualified Code: I48.0 - Paroxysmal atrial fibrillation Yudi Recio MD R3 Aug 23, 2016 10:58 Ember Blanco MD Aug 23, 2016 20:27
--- NOTE | 2016-08-23 11:35 | HHI.CCPN ---
Subjective Remarks/Hospital Course S/P TKA with moderate hypotension, now resolved. Objective Vital Signs Date Time Temp Pulse Resp B/P Pulse Ox O2 Delivery O2 Flow Rate FiO2 08/23/16 10:00 88 08/23/16 08:44 97 Nasal Cannula 2.00 08/23/16 08:00 98.3 17 123/52 Intake and Output 08/22/16 08/22/16 08/23/16 08:00 16:00 00:00 Intake Total 3800 ml 730 ml Output Total 1000 ml 620 ml Balance 2800 ml 110 ml Result Diagram: 08/23/16 0435 08/23/16 0435 Other Results Laboratory Tests Test 08/22/16 12:20 Blood Gas Puncture Site ART LINE Blood Gas Patient Temperature 98.6 Blood Gas HCO3 20 mmol/L (22-26) Blood Gas Base Excess -4.1 mmol/L (-2-2) Blood Gas Oxygen Saturation 96 % (90-100) Arterial Blood pH 7.38 (7.380-7.420) Arterial Blood Partial 34 mmHg (38-42) Pressure CO2 Arterial Blood Partial 218 mmHg Pressure O2 (61-120) Arterial Blood Oxygen Content 18.6 Vol % (12.0-20.0) Arterial Blood 1.7 % (0-4) Carboxyhemoglobin Arterial Blood Methemoglobin 1.3 % (0-2) Blood Gas Hemoglobin 13.4 G/DL (12.0-16.0) Oxygen Delivery Device VENTILATOR Blood Gas Ventilator Setting Imaging Last 24 hours Impressions Knee X-Ray 08/22/16 0819 Signed Impressions: Service Date/Time: August 14:35 - CONCLUSION: Total knee arthroplasty with near-anatomic alignment. Sam Frank MD Objective Remarks . SKIN: Warm and dry. HEAD: Normocephalic. NECK: Supple, trachea midline. CARDIOVASCULAR: Regular rate and rhythm without murmurs, gallops, or rubs. No JVD. RESPIRATORY: Breath sounds equal bilaterally. No accessory muscle use. No wheezes or crackles. GASTROINTESTINAL: Abdomen soft, non-tender, nondistended. BS active. MUSCULOSKELETAL: No cyanosis, or edema. EXTREMITIES: Status post left knee arthroplasty, wound is clean without signs of infection inflammation or bleeding NEURO: O X 3, alert, cooperative. Moves 4 limbs to command. A/P Assessment and Plan 80 with history of atrial fibrillation hypertension now presenting for removal of hardware and revision of left total knee arthroplasty due to pain and disability and failure of left knee arthroplasty. Assessment and Plan: Hypotension - Post general anesthesia - Volume resuscitation with IV fluids - Off Levophed and Benigno-Synephrine during my exam - Resolved Failure total knee endoprosthesis - Status post revision of total replacement of left knee - Postop day 0 - PT and OT eval and treat - Ancef postoperatively - Management per orthopedic surgeon Atrial fibrillation - Chronic and rate controlled - Resume Eliquis when okay with the surgeon - Currently bridged with Lovenox twice a day - Continue amiodarone History of Essential hypertension - Hold home by mouth meds do to hypotension - Resume when hemodynamically improved DVT GI prophylaxis - Regular diet - Lovenox twice a day Overall impression: Hypotension resolved. To floor anytime. Nicolas Trujillo MD Aug 23, 2016 11:35
[2016-08-23] MEDS ORDERED: ENOXAPARIN SODIUM 30 MG/0.3 ML SYRINGE SQ SCH (13:00)
--- NOTE | 2016-08-23 13:49 | MB ---
cc: JANICE NEWMAN M.D. DATE OF CONSULTATION: 08/23/2016. REASON FOR CONSULTATION: Evaluation of hypotension. HISTORY OF PRESENT ILLNESS: Florentin Okeefe is an 80-year-old man who is well-known to me. He has a severe cardiomyopathy and his ejection fraction is 20% to 25%. This was last obtained on an echocardiogram last year. He has a Biotronik defibrillator. He has had atrial fibrillation. He has had two ablations, one March 02, 2015 and one May 25, 2015. He is on amiodarone 200 milligrams daily and had a cardioversion May 27 and has been maintained in sinus rhythm. I saw him preoperatively for clearance and cleared him for surgery. He underwent a left re-do knee replacement yesterday and in the post-anesthesia care unit he dropped his blood pressure and he got put on Levophed drip and transferred to the intensive care unit. His blood pressures have recovered and are normal. He is now off any pressors. Blood pressure is in the low 120s. He feels fine. He has had no anginal pain. He has no shortness of breath. He has lactated Ringers running at 80 cc/hour which I have just stopped because he is eating and taking p.o. The patient is having back pain due to his ankylosing spondylitis with chronic back pain but other than that he is currently stable. MEDICATIONS AT HOME: 1. Amiodarone 200 milligrams daily. 2. Carvedilol 25 milligrams p.o. twice a day. 3. Entresto. The Entresto dose was just cut back from 97/103 twice a day to 49/51 twice a day on August 16 for asymptomatic low blood pressure in the 90s. 4. He has also been on Furosemide 20 milligrams daily. 5. Spironolactone 12.5 milligrams daily. PAST MEDICAL HISTORY: His past medical history includes: 1. Biotronik defibrillator. 2. Ankylosing spondylitis. 3. Cardiomyopathy. 4. Congestive heart failure. 5. Hypertension in the past. 6. Atrial fibrillation problems. PAST SURGICAL HISTORY: His past surgical history includes: 1. Defibrillator. 2. Cardioversion. 3. Total knee replacements bilaterally. 4. LASIK surgery. ALLERGIES: NONE KNOWN. FAMILY HISTORY: Positive for cancer. SOCIAL HISTORY: He has never smoked. He has a history of having a couple of Selwyn Dwyer and Coke daily. REVIEW OF SYSTEMS: Notable only for the back pain. PHYSICAL EXAMINATION: GENERAL: The physical exam reveals an obese pleasant white male in no acute distress. VITAL SIGNS: Charted. HEAD, EYES, EARS, NOSE, THROAT: Unremarkable. NECK: No jugular venous distention. CHEST: Clear to auscultation. CARDIAC: S1-S2. Regular rate and rhythm. No murmurs, rubs or gallops. ABDOMEN: Abdomen soft and nontender. EXTREMITIES: No peripheral edema. Pulses are intact. EKGS: EKG has not been obtained yet. IMPRESSION: Postoperative hypertension probably secondary to the effects of anesthesia currently stable. RECOMMENDATIONS: 1. I would re-start his congestive heart failure medications gradually; specifically, I am starting Carvedilol 3.125 milligrams every 12 hours and I am staggering this at 9:00 a.m. and 9:00 p.m. with hold parameters to . I would gradually increase this to 6.25 milligrams twice a day after 24 hours if his blood pressure remains stable. 2. Instead of Entresto, I am using just the Valsartan component alone of the Entresto and starting this at 40 milligrams q. 12 hours. I am staggering this giving this at 5:00 p.m. and 5:00 a.m. with hold parameters for a blood pressure of less than 105. I would probably keep it at this dose for now and gradually get the carvedilol back up but no hurry to do so. 3. I would initiate anticoagulation with Eliquis 2.5 twice a day starting this evening for his knee and also . I will have one of my partners follow over the weekend. Thank you for asking me to see him. MD BARRETT Fonseca/CORRINE /9:27 AM /1:28 PM
[2016-08-23] MEDS ORDERED: VALSARTAN 40 MG TAB PO SCH (17:00)
[2016-08-23] MEDS: MORPHINE SULFATE 30 MG/30 ML PCA IV SCH (18:13)
[2016-08-23] MEDS: MULTIVITAMINS/MINERALS THERAPEUTIC TAB PO SCH (21:00)
[2016-08-23] MEDS: DOCUSATE SODIUM 100 MG CAP PO SCH (21:19)
[2016-08-23] MEDS: ACETAMINOPHEN/HYDROcodone 325 MG/7.5 MG TAB PO PRN (21:19)
[2016-08-23] MEDS: APIXABAN 2.5 MG TABLET PO SCH (21:19)
[2016-08-23] MEDS ORDERED: CARVEDILOL 3.125 MG TAB PO SCH (22:00)
[2016-08-23] MEDS: SODIUM CHLOR 0.9% 1000 ML INJ 1,000 ML IV SCH (23:45)
[2016-08-24] VITALS (12 sets, daily range): BP systolic 91–108; BP diastolic 54–60; PULSE 75–90; RESP 10–25; TEMP 97.8–98.8; O2SAT 93–95
[2016-08-24] MEDS: ACETAMINOPHEN/HYDROcodone 325 MG/7.5 MG TAB PO PRN (01:38)
[2016-08-24 04:53] LABS: HEMATOCRIT 31.3 % (39.0-51.0); REVIEW FLAG FINAL
[2016-08-24] MEDS: MORPHINE SULFATE 30 MG/30 ML PCA IV SCH (05:23)
[2016-08-24 05:25] LABS: BICARBONATE 26.7 MEQ/L (21.0-32.0); POTASSIUM 4.2 MEQ/L (3.5-5.1)
[2016-08-24] MEDS: PCA - TOTAL MG MORPHINE DELIVERED PER SHIFT SCH (06:00)
[2016-08-24] MEDS: SODIUM CHLOR 0.9% 1000 ML INJ 1,000 ML IV SCH (06:25)
[2016-08-24] MEDS: CHLORHEXIDINE GLUCONATE 4% SOLN 120 ML BTL TOPICAL SCH (06:30)
--- NOTE | 2016-08-24 07:12 | PD.CARD.PN ---
Subjective Subjective Remarks overnight events noted RAY Low BP Low Urine output No complaints Objective Medications Current Medications Medications (Trade) Dose Ordered Sig/Kenny Route Start Time Stop Time Status Last Admin (Hibiclens 4% Top Soln) 1 applic ONCE TOPICAL 08/22/16 06:30 08/25/16 06:29 (Cordarone) 200 mg DAILY PO 08/22/16 09:00 08/23/16 09:06 (Vitamin C) 1,000 mg DAILY PO 08/22/16 09:00 ([place] C) 1 tab DAILY PO 08/23/16 09:00 Patient Own Medication PT OWN MED: ENTRE... DAILY PO 08/23/16 09:00 Hold (Aldactone) 25 mg DAILY PO 08/22/16 09:00 Hold (Vitamin B12) 5,000 mcg BID PO 08/22/16 21:00 (Mag-Ox) 400 mg DAILY PO 08/23/16 09:00 (Vitamin E) 800 units DAILY PO 08/23/16 09:00 (NS Flush) 2 ml UNSCH PRN IVF 08/22/16 08:30 (NS Flush) 2 ml BID IVF 08/22/16 09:00 08/23/16 21:00 ([place] 7.5-325 Mg) 1 tab Q4H PRN PO 08/22/16 08:30 08/24/16 01:38 ([place] 7.5-325 Mg) 2 tab Q4H PRN PO 08/22/16 08:30 (Tylenol) 650 mg Q6H PRN PO 08/22/16 08:30 (Theragran M Tab) 1 tab BID PO 08/23/16 21:00 10/22/16 20:59 (Zofran Inj) 4 mg Q6H PRN IVP 08/22/16 08:30 (Colace) 100 mg BID PO 08/23/16 21:00 08/23/16 21:19 (Restoril) 15 mg HS PRN PO 08/22/16 08:30 (Narcan Inj) 0.4 mg UNSCH PRN IV 08/22/16 08:30 (Benadryl Inj) 25 mg Q6H PRN IV 08/22/16 08:30 (Morphine 1 Mg/ ml HIM CODER) 30 mg UNSCH IV 08/22/16 08:30 08/24/16 05:23 HIM CODER Dosage Infused (Pha) 1 1 Q8HR .XX 08/22/16 14:00 08/24/16 06:00 (Levophed-Dextrose Drip) 250 ml @ 0 mls/hr TITRATE IV 08/22/16 15:45 Hold (Folate) 1 mg DAILY PO 08/23/16 09:00 08/28/16 08:59 (Vitamin B1) 100 mg DAILY PO 08/23/16 09:00 (Romazicon Inj) 0.2 mg Q1M PRN IV PUSH 08/22/16 22:30 (Ativan) 1 mg Q4H PRN PO 08/22/16 22:30 (Ativan) 2 mg Q2H PRN PO 08/22/16 22:30 (Ativan Inj) 2 mg Q15M PRN IV PUSH 08/22/16 22:30 (Coreg) 3.125 mg Q12H PO 08/23/16 22:00 Hold (Diovan) 40 mg Q12H PO 08/23/16 17:00 Hold Apixaban 2.5 mg 2.5 mg BID PO 08/23/16 21:00 08/23/16 21:19 (NS 1000 ml Inj) 1,000 ml @ 150 mls/hr Q6H40M IV 08/23/16 23:45 08/24/16 13:04 08/24/16 06:25 Vital Signs / I&O Vital Signs Date Time Temp Pulse Resp B/P Pulse Ox O2 Delivery O2 Flow Rate FiO2 08/24/16 06:00 17 08/24/16 05:28 24 08/24/16 05:23 17 08/24/16 04:00 80 08/24/16 04:00 98.1 80 10 96/60 93 08/24/16 02:38 14 08/24/16 02:00 84 08/24/16 00:00 98.1 88 25 108/55 93 08/24/16 00:00 88 08/23/16 22:00 90 08/23/16 22:00 14 08/23/16 20:00 86 08/23/16 20:00 98.9 86 22 99/54 95 Arterial Line 08/23/16 19:00 93 Nasal Cannula 2.00 08/23/16 18:13 18 08/23/16 18:00 86 08/23/16 16:00 98.1 80 18 95/46 96 08/23/16 16:00 80 08/23/16 14:00 88 08/23/16 14:00 22 08/23/16 12:00 81 08/23/16 12:00 99.1 81 17 101/41 97 08/23/16 10:00 88 08/23/16 08:44 97 Nasal Cannula 2.00 08/23/16 08:00 84 08/23/16 08:00 98.3 84 17 123/52 94 I/O 08/23/16 08/23/16 08/23/16 08/24/16 08/24/16 08/24/16 07:00 15:00 23:00 07:00 15:00 23:00 Intake Total 635 ml 913 ml 103 ml Output Total 275 ml 150 ml 50 ml Balance 360 ml 763 ml 53 ml Intake Oral 600 ml IV Total 635 ml 313 ml 103 ml Output Urine Total 275 ml 150 ml 50 ml # Bowel Movements 0 0 Physical Exam GENERAL: Well-nourished, well-developed patient. SKIN: Warm and dry. HEAD: Normocephalic. EYES: No scleral icterus. No injection or drainage. NECK: Supple, trachea midline. No JVD or lymphadenopathy. CARDIOVASCULAR: Regular rate and rhythm without murmurs, gallops, or rubs. RESPIRATORY: Breath sounds equal bilaterally. No accessory muscle use. GASTROINTESTINAL: Abdomen soft, non-tender, nondistended. EXTREMITIES: No cyanosis, or edema. NEUROLOGICAL: Awake, alert, and oriented x 3. Non-focal. Laboratory Laboratory Tests Test 08/24/16 04:06 Hemoglobin 10.4 GM/DL Hematocrit 31.3 % Sodium Level 140 MEQ/L Potassium Level 4.2 MEQ/L Chloride Level 105 MEQ/L Carbon Dioxide Level 26.7 MEQ/L Anion Gap 8 MEQ/L Blood Urea Nitrogen 24 MG/DL Creatinine 2.23 MG/DL Estimat Glomerular Filtration 28 ML/MIN Rate Random Glucose 90 MG/DL Calcium Level 8.3 MG/DL Imaging Last Impressions Knee X-Ray 08/22/16 0819 Signed Impressions: Service Date/Time: August 14:35 - CONCLUSION: Total knee arthroplasty with near-anatomic alignment. Sam Frank MD Assessment and Plan Problem List: (1) Postoperative hypotension Assessment and Plan: RAY this am likely due ATN. Low urine output. H&H stable however decrease from baseline. BP meds on Hold. No signs of HF on exam. Recommendations -IV hydration -Strict I&O -Daily weight -Low sodium diet -Encourage incentive spirometry -Continue Amio and OAC - Avoid electrolytes abnormalities - Avoid Nephrotoxic drugs - Chest Xray this AM (2) Atrial fibrillation (3) Cardiac defibrillator in situ (4) Hyperlipidemia (5) Cardiomyopathy (6) Essential hypertension Problem Qualifiers (1) Atrial fibrillation: Qualified Code: I48.0 - Paroxysmal atrial fibrillation Juan A Love MD Aug 24, 2016 07:12
[2016-08-24] MEDS: FOLIC ACID 1 MG TAB PO SCH (07:24)
[2016-08-24] MEDS: VITAMIN B COMPLEX/VIT C TAB PO SCH (07:24)
[2016-08-24] MEDS: SODIUM CHLORIDE 0.9% FLUSH 5 ML FLUSH IVF SCH ×2 (07:24→19:49)
[2016-08-24] MEDS: CYANOCOBALAMIN 1,000 MCG TAB PO SCH ×2 (07:27→19:43)
[2016-08-24] MEDS: MULTIVITAMINS/MINERALS THERAPEUTIC TAB PO SCH ×2 (07:27→19:43)
[2016-08-24] MEDS: THIAMINE HCL 100 MG TAB PO SCH (07:27)
[2016-08-24] MEDS: VITAMIN E 400 UNIT CAP PO SCH (07:28)
[2016-08-24] MEDS: ASCORBIC ACID 500 MG TAB PO SCH (07:28)
[2016-08-24] MEDS ORDERED: SODIUM CHLOR 0.9% 250 ML INJ 250 ML IV ONE (08:00)
[2016-08-24] MEDS: MAGNESIUM OXIDE 400 MG TAB PO SCH (09:00)
[2016-08-24] MEDS: APIXABAN 2.5 MG TABLET PO SCH ×2 (09:24→19:48)
[2016-08-24] MEDS: DOCUSATE SODIUM 100 MG CAP PO SCH (09:24)
[2016-08-24] MEDS: AMIODARONE 200 MG TAB PO SCH (09:24)
--- NOTE | 2016-08-24 09:37 | PD.ORT.PN ---
Subjective Subjective Remarks Pt complaining of pain in both arms and legs. Not too much pain in operative knee. Objective Vitals Vital Signs Date Time Temp Pulse Resp B/P Pulse Ox O2 Delivery O2 Flow Rate FiO2 08/24/16 08:00 98.1 87 14 106/59 95 08/24/16 08:00 87 08/24/16 07:00 98 Nasal Cannula 2.00 08/24/16 06:00 82 08/24/16 06:00 17 08/24/16 05:28 24 08/24/16 05:23 17 08/24/16 04:00 80 08/24/16 04:00 98.1 80 10 96/60 93 08/24/16 02:38 14 08/24/16 02:00 84 08/24/16 00:00 98.1 88 25 108/55 93 08/24/16 00:00 88 08/23/16 22:00 90 08/23/16 22:00 14 08/23/16 20:00 86 08/23/16 20:00 98.9 86 22 99/54 95 Arterial Line 08/23/16 19:00 93 Nasal Cannula 2.00 08/23/16 18:13 18 08/23/16 18:00 86 08/23/16 16:00 98.1 80 18 95/46 96 08/23/16 16:00 80 08/23/16 14:00 88 08/23/16 14:00 22 08/23/16 12:00 81 08/23/16 12:00 99.1 81 17 101/41 97 08/23/16 10:00 88 I/O 08/23/16 08/23/16 08/23/16 08/24/16 08/24/16 08/24/16 07:00 15:00 23:00 07:00 15:00 23:00 Intake Total 635 ml 913 ml 103 ml 834 ml Output Total 275 ml 150 ml 50 ml 80 ml Balance 360 ml 763 ml 53 ml 754 ml Intake Oral 600 ml IV Total 635 ml 313 ml 103 ml 834 ml Output Urine Total 275 ml 150 ml 50 ml 80 ml # Bowel Movements 0 0 0 Result Diagram: 08/24/1640508/24/16405 Imaging Last 24 hours Impressions Knee X-Ray 08/22/16818 Signed Impressions: Service Date/Time: August 14:35 - CONCLUSION: Total knee arthroplasty with near-anatomic alignment. Sam Frank MD Objective Remarks Dressing dry and intact. Moving toes well. No calf tenderness. Pain in right ankle. Tenderness in left elbow where he had A line. NV intact. Assessment & Plan Ortho Post Op Day #: 2 Problem List: Assessment and Plan Orthopedically doing well. To ortho floor when cleared by medical. Resume PT KENNETH. DC MANAGER GYN today. Solitario Dunn MD Aug 24, 2016 09:37
--- NOTE | 2016-08-24 10:01 | HHI.CCPN ---
Subjective Remarks/Hospital Course S/P TKA with moderate hypotension, now resolved. 08/24: Oliguria persists with rising weight and fluid. I will place an arterial line and follow flotrac if this persists, look specifically index. Objective Vital Signs Date Time Temp Pulse Resp B/P Pulse Ox O2 Delivery O2 Flow Rate FiO2 08/24/16 08:00 98.1 87 14 106/59 95 08/24/16 07:00 Nasal Cannula 2.00 Intake and Output 08/23/16 08/23/16 08/24/16 08:00 16:00 00:00 Intake Total 635 ml 913 ml 103 ml Output Total 275 ml 150 ml 50 ml Balance 360 ml 763 ml 53 ml Result Diagram: 08/24/1640508/24/16405 Imaging Last 24 hours Impressions Knee X-Ray 08/22/16818 Signed Impressions: Service Date/Time: August 14:35 - CONCLUSION: Total knee arthroplasty with near-anatomic alignment. Sam Frank MD Objective Remarks . SKIN: Warm and dry. HEAD: Normocephalic. NECK: Supple, trachea midline. CARDIOVASCULAR: Regular rate and rhythm without murmurs, gallops, or rubs. No JVD. RESPIRATORY: Breath sounds equal bilaterally. No accessory muscle use. No wheezes or crackles. GASTROINTESTINAL: Abdomen soft, non-tender, nondistended. BS active. MUSCULOSKELETAL: No cyanosis, or edema. EXTREMITIES: Well perfused. NEURO: O X 3, alert, cooperative. Moves 4 limbs to command. A/P Assessment and Plan 80 with history of atrial fibrillation hypertension now presenting for removal of hardware and revision of left total knee arthroplasty due to pain and disability and failure of left knee arthroplasty. Assessment and Plan: Hypotension - Post general anesthesia - Volume resuscitation with IV fluids - Off Levophed and Benigno-Synephrine during my exam - Resolved - Hypotension recurred last night. Failure total knee endoprosthesis - Status post revision of total replacement of left knee - Postop day 0 - PT and OT eval and treat - Ancef postoperatively - Management per orthopedic surgeon Atrial fibrillation - Chronic and rate controlled - Resume Eliquis when okay with the surgeon - Currently bridged with Lovenox twice a day - Continue amiodarone History of Essential hypertension - Hold home by mouth meds do to hypotension - Resume when hemodynamically improved DVT GI prophylaxis - Regular diet - Lovenox twice a day Overall impression: Hypotension persists in the context of a normally hypertensive patient. Oliguria persists. Nicolas Trujillo MD Aug 24, 2016 10:01
[2016-08-24] MEDS ORDERED: BACITRACIN OINT 0.9 GM PKT TOP PRN (10:15)
[2016-08-24] MEDS ORDERED: HYDROmorphone HCL PF 2 MG/ML VIAL IV PUSH PRN (11:00)
[2016-08-24] MEDS ORDERED: HYDROmorphone HCL PF 1 MG/ML VIAL IV PUSH PRN ×2 (11:00→13:15)
--- NOTE | 2016-08-24 12:24 | HHI.FPPN ---
Subjective Remarks Patient lying in bed, no acute distress. He feels mildly lightheaded and weak. He has pain in his left shoulder and in his right ankle, as well as pain at his surgical incision site of his left knee. His MAPs continue to run low, and were in the 60's overnight, and are 65-70 this morning when I saw him. He continues to get IV fluids, gentle hydration due to a history of heart failure. Also with oliguria. He feels constipated. No chest pain or shortness of breath. No nausea or vomiting. is present at the bedside and reports that he has a history of ankylosing spondylitis. (Ricco Flor MD R2) Objective Vitals Vital Signs Date Time Temp Pulse Resp B/P Pulse Ox O2 Delivery O2 Flow Rate FiO2 08/24/16 10:00 83 08/24/16 08:00 98.1 87 14 106/59 95 08/24/16 08:00 87 08/24/16 07:00 98 Nasal Cannula 2.00 08/24/16 06:00 82 08/24/16 06:00 17 08/24/16 05:28 24 08/24/16 05:23 17 08/24/16 04:00 80 08/24/16 04:00 98.1 80 10 96/60 93 08/24/16 02:38 14 08/24/16 02:00 84 08/24/16 00:00 98.1 88 25 108/55 93 08/24/16 00:00 88 08/23/16 22:00 90 08/23/16 22:00 14 08/23/16 20:00 86 08/23/16 20:00 98.9 86 22 99/54 95 Arterial Line 08/23/16 19:00 93 Nasal Cannula 2.00 08/23/16 18:13 18 08/23/16 18:00 86 08/23/16 16:00 98.1 80 18 95/46 96 08/23/16 16:00 80 08/23/16 14:00 88 08/23/16 14:00 22 I/O 08/23/16 08/23/16 08/23/16 08/24/16 08/24/16 08/24/16 07:00 15:00 23:00 07:00 15:00 23:00 Intake Total 635 ml 913 ml 103 ml 834 ml Output Total 275 ml 150 ml 50 ml 80 ml Balance 360 ml 763 ml 53 ml 754 ml Intake Oral 600 ml IV Total 635 ml 313 ml 103 ml 834 ml Output Urine Total 275 ml 150 ml 50 ml 80 ml # Bowel Movements 0 0 0 (Ricco Flor MD R2) Result Diagram: 08/24/16 0406 08/24/16 0406 Imaging Last 72 hours Impressions Knee X-Ray 08/22/16 0819 Signed Impressions: Service Date/Time: August 14:35 - CONCLUSION: Total knee arthroplasty with near-anatomic alignment. Sam Frank MD Objective Remarks GENERAL: WDWN elderly white male lying in bed in NAD. MAP of 65-70. SKIN: No rashes, ecchymoses or lesions. Cool and dry. HEAD: NC/AT EYES: EOMI. No conjunctival injection or drainage. ENT: MMM, OP without erythema, tonsillar swelling, or exudate. NECK: No JVD. CARDIOVASCULAR: NRRR. Normal S1/S2. No MRG. Left dorsalis pedis pulse present, normal capillary refill, able to move toes and has normal sensation on that foot. RESPIRATORY: CTAB. No crackles or wheezes. GASTROINTESTINAL: Abdomen soft, non-distended, non-tender. No hepato- splenomegaly or palpable masses. MUSCULOSKELETAL: Significant pain in his left anterior shoulder and in the right ankle. NEUROLOGICAL: Awake and alert. Normal speech. (Ricco Flor MD R2) A/P Assessment and Plan 80 year old male with PMH of AFib on Eliquis, HTN presenting with: Discharge Planning Patient remains in the SICU due to continued low blood pressures, with MAP currently in the 65-70 range. Pending transfer to the floor once hemodynamically stable. Not currently receiving pressors, but has required them before. (Ricco Flor MD R2) Attending Attestation Patient seen and examined, discussed with resident team. I agree with assessment and management as documented and discussed with me. Pt reports feeling weak and lightheaded. He remains with significant hypotension. Now with acute kidney failure. Provide IV fluid, but also will need to be cautious due to heart disease. (Ember Blanco MD) Problem List: (1) Postoperative hypotension Status: Acute Plan: Needed norsynephrine intraoperatively and required Levophed drip intermittently. - Continual monitoring of blood pressure. - May require A-line with flow tracker if not improving - Getting gentle hydration at 80 mls per hour, monitor for fluid overload - Morphine pump discontinued as it may be contributing to low pressures. - Valsartan and carvedilol currently on hold. - Remain in ICU with critical care on board until hemodynamically stable. (2) Acute kidney failure Status: Acute Plan: Creatinine bumped from 1.05 to 2.23 and BUN from 17 to 24, with significantly decreased GFR. Urine output 280 mls. Weights increasing. Likely etiology is low blood pressures, poor perfusion to the kidneys. - Monitor daily weights - Renally dose medication - Avoid nephrotoxic medication - Gentle fluid hydration, watch for fluid overload - Consider consulting nephrology if not quickly improving. (3) Status post revision of total replacement of left knee Status: Acute Plan: POD 2 s/p revision L total knee secondary to pain and failed arthroplasty. - Knee currently in kinetic device - Physical therapy as tolerated - [place] for pain control, Dilaudid for breakthrough. Discontinued morphine [employer]. - Set up rehab before discharge. (4) Atrial fibrillation Status: Chronic Plan: CHADS2-Vasc score of 3 --> 3.2% stroke risk per year, HAS-BLED score 2 -- > intermediate risk of bleed. - Eliquis resumed at 2.5 mg bid - Carvedilol currently held for low blood pressures - Amiodarone continued at 200 mg qday - Continue monitoring - Cardiology on board (5) FEN/PPX Status: Acute Plan: Fluids: IVF 80 mls/hr of normal saline Elecs: Monitor and replete as needed Acute renal failure, monitor fluid status Nutrition: Advance diet as tolerated DVT: Continue home Eliquis, SCD's dw Dr. Blanco (Ricco Flor MD R2) Problem Qualifiers (1) Atrial fibrillation: Qualified Code: I48.0 - Paroxysmal atrial fibrillation Ricco Flor MD R2 Aug 24, 2016 12:24 Ember Blanco MD Aug 24, 2016 19:30
[2016-08-24 12:28] LABS: HEMATOCRIT 27.4 % (39.0-51.0); REVIEW FLAG FINAL
[2016-08-24 12:46] LABS: POTASSIUM 4.1 MEQ/L (3.5-5.1)
[2016-08-24] MEDS ORDERED: ACETAMINOPHEN 325 MG TAB PO PRN (13:15)
[2016-08-24] MEDS: DOCUSATE SODIUM 50 MG/SENNA 8.6 MG TAB PO SCH ×2 (14:00→19:48)
--- NOTE | 2016-08-24 14:31 | EKG ---
Date Performed: 08/24/2016 Time Performed: 00:51:32 PTAGE: 80 years EKG: Sinus rhythm Extensive ST-T changes may be due to myocardial ischemia Compared to prior tracing no significant ch sha Abnormal ECG PREVIOUS TRACING : 05/27/2016 09.38 DOCTOR: Mehreen Rodriguez Interpretating Date/Time 08/24/2016 14:31:05
[2016-08-24 15:34] LABS: BACTERIA, URINE OCC /hpf; BLOOD, URINE LARGE (NEG); GLUCOSE,URINE NEG (NEG); HYALINE CAST, URINE 19 /lpf (RARE); KETONE, URINE NEG (NEG); MUCUS URINE MOD /lpf (OCC); NITRITE,URINE NEG (NEG); SQUAMOUS EPITHELIAL CELL URINE 4 /hpf (0-5)
[2016-08-24 15:35] LABS: URINE COLOR DARK-BROWN (YELLW/STRAW)
[2016-08-24 15:37] LABS: COMMENT (UR) CATH-CULTURE IND; CULTURE IF INDICATED CATH CULTURE IND
[2016-08-24] MEDS: HYDROmorphone HCL PF 1 MG/ML VIAL IV PUSH PRN ×2 (16:32→19:08)
--- NOTE | 2016-08-24 21:57 | MB ---
cc: RASHAD RAHMAN MD DATE OF CONSULTATION 08/24/16 REASON FOR CONSULTATION Acute renal failure management. HISTORY OF PRESENT ILLNESS This is an 80-year-old male with a history of atrial fibrillation as well as hypertension and CHF with a 20-25% ejection fraction. The patient was admitted on August 21 and had a left knee replacement. He tolerated this surgery well. However, he had ongoing hypotension during the surgery and postoperatively. Postoperatively, he had a systolic blood pressure in the 80s. He was started on a Levophed drip. His creatinine increased from a level of 1.05 up to a level of 2.2. The patient was monitored in the ICU initially on pressor support. The creatinine further increased to 2.4 today and nephrology was consulted for further evaluation. The pressors have been weaned off at this point and the patient currently has a blood pressure of 99/58. His urine output has been diminished going from 1.4 liters over 24 hours two days ago down to 280 mL of urine output over the last 24 hours with approximately 2.5 kg increase in weight. At this point, the patient is resting in bed. He reports ongoing fatigue and pain throughout his joints and his body. Nephrology was consulted for further evaluation. REVIEW OF SYSTEMS No chest pains. No shortness of breath. No dizziness or loss of consciousness. The patient has generalized fatigue and pains post surgery. No nausea or vomiting. No diarrhea. No constipation. No dysuria noted. Otherwise review of systems negative. PAST MEDICAL HISTORY 1. Atrial fibrillation with ablation on Eliquis 2. Hypertension 3. Back pain. PAST SURGICAL HISTORY 1. Left knee replacement in 2001 with repeat replacement at time of this admission on August 22 2. History of ICD placement 3. Hemorrhoid surgery. ALLERGIES NO KNOWN DRUG ALLERGIES. FAMILY HISTORY Noncontributory. SOCIAL HISTORY No tobacco use. The patient drinks two to three drinks of alcohol per day. Otherwise no drug use. PHYSICAL EXAMINATION VITAL SIGNS: At time of evaluation temperature 99/58, pulse 85, respiratory rate 12, pulse ox 95%, temperature 97.8. GENERAL: Awake, alert, oriented HEENT/NECK: Soft, supple. CARDIAC: Regular rate and rhythm. PULMONARY Lungs decreased breath sounds at bases. ABDOMEN: Soft, distended. Positive bowel sounds. EXTREMITIES: Trace edema. left lower extremity in cast post surgery. LABORATORY DATA Sodium 139, potassium 4.1, chloride 108, bicarb 23, BUN 27, creatinine 2.41 with glucose of 79. White count 11.7, hemoglobin 9.3, hematocrit 27.4 with platelet count 131. Urinalysis with 30 protein, negative glucose, negative ketones, large occult blood and many white blood cell count, 19 hyaline casts, moderate mucus. Urine culture is pending. Wound cultures are negative otherwise. ASSESSMENT/PLAN 1. Acute kidney injury. The patient had stable renal function with a creatinine of 1.5 going into surgery. Postoperatively, his creatinines increased from 2.2 to 2.4 and has had decreased urine output over the last 24 hours. This is likely secondary to hypotension. Hyaline casts were noted in the urinalysis suggestive of decreased renal perfusion. This may have progressed to ATN with his decreased urine output over the last 24 hours. At this point, agree with IV fluids and the patient is receiving IV fluids at 80 cc/hour. Caution given history of CHF and 20% ejection fraction, however, continue gentle hydration as tolerated for now to further support blood pressure. The patient is completely off pressors at this point. His hemodynamics have improved. We may see some improvement in his renal function, however, it is unclear if he has already progressed to ATN. Continue to monitor closely at this time. If his level of improvement in urine output or renal function tomorrow may consider trial of diuretics and, if that does not work, may need eventual dialysis. However, at this point continue with gentle fluids. At this point, continue to monitor for improvement. 2. Atrial fibrillation. The patient has history of ablation and is on anticoagulation with Lovenox, now will need Eliquis restarted eventually when he is off Lovenox. Continue to monitor. 3. CHF. The patient has a history of 20-25% ejection fraction and ICD. Continue with IV fluids for now given hypotension. Continue to closely monitor cardiac function and volume status. 4. Hypertension. The patient with a history of hypertension. He actually has hypotension at this point postsurgery. Continue to closely monitor. 5. Knee replacement. The patient is doing well otherwise surgically. Continue to follow up with orthopedics and primary team. Of note. avoid any NSAIDs for pain control and renal dose all meds and antibiotics. MD RENTAA Lemon/ /5:10 PM /9:37 PM MTDD
[2016-08-25] VITALS (12 sets, daily range): BP systolic 98–127; BP diastolic 54–59; PULSE 77–139; RESP 14–24; TEMP 97.3–98.4; O2SAT 95–99
[2016-08-25] MEDS: MAGNESIUM SULFATE 1 GM PREMIX 100 ML IV SCH ×2 (02:15→03:21)
[2016-08-25 05:21] LABS: BICARBONATE 21.8 MEQ/L (21.0-32.0); MAGNESIUM 1.7 MG/DL (1.5-2.5); POTASSIUM 4.9 MEQ/L (3.5-5.1)
[2016-08-25] MEDS: HYDROmorphone HCL PF 1 MG/ML VIAL IV PUSH PRN ×3 (05:50→14:28)
--- NOTE | 2016-08-25 06:50 | RADRPT ---
EXAM DATE/TIME: 08/25/2016 06:21 [facility] COMPARISON: CHEST SINGLE AP, September 29, 2015, 11:04. INDICATIONS : Shortness of breath, possible pulmonary disease. MEDICAL HISTORY : None. SURGICAL HISTORY : Total knee replacement, left. Pacemaker. ENCOUNTER: Subsequent ACUITY: 2 days PAIN SCORE: Non-responsive. LOCATION: Bilateral chest FINDINGS: There is a pacing device in place from the left subclavian approach. The cardiac silhouette is enlarg ed. The lungs are grossly clear. CONCLUSION: Cardiomegaly. Kit Ding MD on August 25, 2016 at 6:48 Board Certified Radiologist. This report was verified electronically.
[2016-08-25] MEDS: SODIUM CHLORIDE 0.9% FLUSH 5 ML FLUSH IVF SCH ×2 (07:21→21:00)
[2016-08-25] MEDS: VITAMIN B COMPLEX/VIT C TAB PO SCH (07:21)
[2016-08-25] MEDS: FOLIC ACID 1 MG TAB PO SCH (07:22)
[2016-08-25] MEDS: ASCORBIC ACID 500 MG TAB PO SCH (07:23)
[2016-08-25] MEDS: VITAMIN E 400 UNIT CAP PO SCH (07:23)
[2016-08-25] MEDS: THIAMINE HCL 100 MG TAB PO SCH (07:23)
[2016-08-25] MEDS: MULTIVITAMINS/MINERALS THERAPEUTIC TAB PO SCH ×2 (07:23→21:00)
[2016-08-25] MEDS: CYANOCOBALAMIN 1,000 MCG TAB PO SCH ×2 (07:23→21:00)
[2016-08-25 07:55] LABS: HEMATOCRIT 31.7 % (39.0-51.0); MEAN CELL VOLUME 98.7 FL (80.0-100.0); MEAN CORPUSCULAR HEMOGLOBIN 32.6 PG (27.0-34.0); PLATELET COUNT 90 TH/MM3 (150-450); RED BLOOD COUNT 3.21 MIL/MM3 (4.50-5.90); RED CELL DISTRIBUTION WIDTH 13.6 % (11.6-17.2)
[2016-08-25 08:06] LABS: REVIEW FLAG AUTO DIFF
[2016-08-25] MEDS: APIXABAN 2.5 MG TABLET PO SCH ×2 (08:14→22:05)
[2016-08-25] MEDS: DOCUSATE SODIUM 50 MG/SENNA 8.6 MG TAB PO SCH ×2 (08:15→22:04)
[2016-08-25] MEDS: AMIODARONE 200 MG TAB PO SCH (08:15)
[2016-08-25] MEDS: MAGNESIUM OXIDE 400 MG TAB PO SCH (08:15)
[2016-08-25] MEDS ORDERED: SODIUM CHLOR 0.9% 1000 ML INJ 1,000 ML IV ONE (10:00)
--- NOTE | 2016-08-25 10:08 | PD.CARD.PN ---
Subjective Subjective Remarks Overnight events noted BP better Improved Urine output No CV complaints Episode of NSVT on telemetry Objective Medications Current Medications Medications (Trade) Dose Ordered Sig/Kenny Route Start Time Stop Time Status Last Admin (Cordarone) 200 mg DAILY PO 08/22/16 09:00 08/25/16 08:15 (Vitamin C) 1,000 mg DAILY PO 08/22/16 09:00 ([place]bee C) 1 tab DAILY PO 08/23/16 09:00 Patient Own Medication PT OWN MED: ENTRE... DAILY PO 08/23/16 09:00 Hold (Aldactone) 25 mg DAILY PO 08/22/16 09:00 Hold (Vitamin B12) 5,000 mcg BID PO 08/22/16 21:00 (Mag-Ox) 400 mg DAILY PO 08/23/16 09:00 08/25/16 08:15 (Vitamin E) 800 units DAILY PO 08/23/16 09:00 (NS Flush) 2 ml UNSCH PRN IVF 08/22/16 08:30 (NS Flush) 2 ml BID IVF 08/22/16 09:00 08/25/16 07:21 (Theragran M Tab) 1 tab BID PO 08/23/16 21:00 10/22/16 20:59 (Zofran Inj) 4 mg Q6H PRN IVP 08/22/16 08:30 Temazepam 15 mg 15 mg HS PRN PO 08/22/16 08:30 (Levophed-Dextrose Drip) 250 ml @ 0 mls/hr TITRATE IV 08/22/16 15:45 Hold (Folate) 1 mg DAILY PO 08/23/16 09:00 08/28/16 08:59 (Vitamin B1) 100 mg DAILY PO 08/23/16 09:00 (Romazicon Inj) 0.2 mg Q1M PRN IV PUSH 08/22/16 22:30 (Ativan) 1 mg Q4H PRN PO 08/22/16 22:30 (Ativan) 2 mg Q2H PRN PO 08/22/16 22:30 (Ativan Inj) 2 mg Q15M PRN IV PUSH 08/22/16 22:30 (Coreg) 3.125 mg Q12H PO 08/23/16 22:00 Hold (Diovan) 40 mg Q12H PO 08/23/16 17:00 Hold (Eliquis) 2.5 mg BID PO 08/23/16 21:00 08/25/16 08:14 (Dilaudid Pf Inj) 0.5 mg Q3H PRN IV PUSH 08/24/16 13:15 (Dilaudid Pf Inj) 1 mg Q3H PRN IV PUSH 08/24/16 13:15 08/25/16 09:59 (Tylenol) 650 mg Q6H PRN PO 08/24/16 13:15 Senna/Docusate Sodium 2 tab 2 tab BID PO 08/24/16 14:00 08/25/16 08:15 (NS 1000 ml Inj) 1,000 ml @ 50 mls/hr Q20H ONCE IV 08/25/16 10:00 08/26/16 05:59 UNV Vital Signs / I&O Vital Signs Date Time Temp Pulse Resp B/P Pulse Ox O2 Delivery O2 Flow Rate FiO2 08/25/16 08:00 77 08/25/16 08:00 98.1 77 24 100/58 97 08/25/16 07:59 96 Nasal Cannula 2.00 08/25/16 07:00 96 Nasal Cannula 3.00 08/25/16 06:20 22 08/25/16 06:00 81 08/25/16 04:00 90 08/25/16 04:00 98.4 90 19 111/59 95 08/25/16 02:00 80 08/25/16 00:00 82 08/25/16 00:00 98.4 82 14 114/58 97 08/24/16 22:00 90 08/24/16 20:00 98.8 84 17 101/58 95 08/24/16 20:00 83 08/24/16 19:00 95 Nasal Cannula 2.00 08/24/16 18:00 87 08/24/16 16:00 85 08/24/16 16:00 97.8 85 12 99/58 95 08/24/16 14:00 75 08/24/16 12:00 83 08/24/16 12:00 98.3 86 18 91/54 94 I/O 08/24/16 08/24/16 08/24/16 08/25/16 08/25/16 08/25/16 07:00 15:00 23:00 07:00 15:00 23:00 Intake Total 834 ml 1389 ml 1121 ml 932 ml Output Total 80 ml 102 ml 125 ml 350 ml Balance 754 ml 1287 ml 996 ml 582 ml Intake Oral 580 ml 480 ml 240 ml IV Total 834 ml 809 ml 641 ml 692 ml Output Urine Total 80 ml 102 ml 125 ml 350 ml # Bowel Movements 0 0 0 0 Physical Exam GENERAL: Well-nourished, well-developed patient. SKIN: Warm and dry. HEAD: Normocephalic. EYES: No scleral icterus. No injection or drainage. NECK: Supple, trachea midline. No JVD or lymphadenopathy. CARDIOVASCULAR: Regular rate and rhythm without murmurs, gallops, or rubs. RESPIRATORY: Breath sounds equal bilaterally. No accessory muscle use. GASTROINTESTINAL: Abdomen soft, non-tender, nondistended. EXTREMITIES: No cyanosis, or edema. NEUROLOGICAL: Awake, alert, and oriented x 3. Non-focal. Laboratory Laboratory Tests Test 08/24/16 08/24/16 08/25/16 08/25/16 12:05 14:55 00:53 03:48 Hemoglobin 9.3 GM/DL 10.5 GM/DL Hematocrit 27.4 % 31.7 % Sodium Level 139 MEQ/L 140 MEQ/L Potassium Level 4.1 MEQ/L 4.9 MEQ/L Chloride Level 108 MEQ/L 107 MEQ/L Carbon Dioxide Level 23.0 MEQ/L 21.8 MEQ/L Anion Gap 8 MEQ/L 11 MEQ/L Blood Urea Nitrogen 27 MG/DL 35 MG/DL Creatinine 2.41 MG/DL 2.52 MG/DL Estimat Glomerular Filtration 26 ML/MIN 25 ML/MIN Rate Random Glucose 79 MG/DL 93 MG/DL Calcium Level 7.8 MG/DL 8.5 MG/DL Urine Color DARK-BROWN Urine Turbidity CLOUDY Urine pH 5.0 Urine Specific [place] 1.020 Urine Protein 30 mg/dL Urine Glucose (UA) NEG mg/dL Urine Ketones NEG mg/dL Urine Occult Blood LARGE Urine Nitrite NEG Urine Bilirubin NEG Urine Urobilinogen 2.0 MG/DL Urine Leukocyte Esterase LARGE Urine RBC /hpf Urine WBC /hpf Urine WBC Clumps MANY Urine Squamous Epithelial 4 /hpf Cells Urine Bacteria OCC /hpf Urine Hyaline Casts 19 /lpf Urine Mucus MOD /lpf Microscopic Urinalysis Comment CATH-CULTURE IND Urine Eosinophils NONE SEEN /HPF Urine Random Creatinine 465.2 MG/DL Urine Random Sodium 19 MEQ/L Magnesium Level 1.2 MG/DL 1.7 MG/DL White Blood Count 14.0 TH/MM3 Red Blood Count 3.21 MIL/MM3 Mean Corpuscular Volume 98.7 FL Mean Corpuscular Hemoglobin 32.6 PG Mean Corpuscular Hemoglobin 33.0 % Concent Red Cell Distribution Width 13.6 % Platelet Count 90 TH/MM3 Mean Platelet Volume 10.0 FL Hematology Comments Imaging Last Impressions Chest X-Ray 08/25/16 0400 Signed Impressions: Service Date/Time: Thursday, August 25, 2016 06:21 - CONCLUSION: Cardiomegaly. Kit Ding MD Knee X-Ray 08/22/16 0819 Signed Impressions: Service Date/Time: August 14:35 - CONCLUSION: Total knee arthroplasty with near-anatomic alignment. Sam Frank MD Assessment and Plan Problem List: (1) Postoperative hypotension Assessment and Plan: RAY this AM likely due ATN. Urine output improved. H&H stable however decrease from baseline. BP better. No signs of HF on exam. No CV complaints Recommendations -Strict I&O -Daily weight -Low sodium diet -Encourage incentive spirometry -Continue Amio and OAC - Avoid electrolytes abnormalities - Avoid Nephrotoxic drugs -Nephrology to follow Dr. Silverio will be back in AM (2) Atrial fibrillation (3) Cardiac defibrillator in situ (4) Hyperlipidemia (5) Cardiomyopathy (6) Essential hypertension Problem Qualifiers (1) Atrial fibrillation: Qualified Code: I48.0 - Paroxysmal atrial fibrillation Juan A Love MD Aug 25, 2016 10:07
--- NOTE | 2016-08-25 10:15 | HHI.FPPN ---
Subjective Remarks Overnight had two runs of VTach, 10 and 12 beats. Asymptomatic. No CP/SOB, lightheadedness. Today noting pain in elbow (left) and ankle (left). Back and knee doing well without pain. (Marek Hernandez MD R1) Objective Vitals Vital Signs Date Time Temp Pulse Resp B/P Pulse Ox O2 Delivery O2 Flow Rate FiO2 08/25/16 10:00 83 08/25/16 08:00 77 08/25/16 08:00 98.1 77 24 100/58 97 08/25/16 07:59 96 Nasal Cannula 2.00 08/25/16 07:00 96 Nasal Cannula 3.00 08/25/16 06:20 22 08/25/16 06:00 81 08/25/16 04:00 90 08/25/16 04:00 98.4 90 19 111/59 95 08/25/16 02:00 80 08/25/16 00:00 82 08/25/16 00:00 98.4 82 14 114/58 97 08/24/16 22:00 90 08/24/16 20:00 98.8 84 17 101/58 95 08/24/16 20:00 83 08/24/16 19:00 95 Nasal Cannula 2.00 08/24/16 18:00 87 08/24/16 16:00 85 08/24/16 16:00 97.8 85 12 99/58 95 08/24/16 14:00 75 08/24/16 12:00 83 08/24/16 12:00 98.3 86 18 91/54 94 I/O 08/24/16 08/24/16 08/24/16 08/25/16 08/25/16 08/25/16 07:00 15:00 23:00 07:00 15:00 23:00 Intake Total 834 ml 1389 ml 1121 ml 932 ml Output Total 80 ml 102 ml 125 ml 350 ml Balance 754 ml 1287 ml 996 ml 582 ml Intake Oral 580 ml 480 ml 240 ml IV Total 834 ml 809 ml 641 ml 692 ml Output Urine Total 80 ml 102 ml 125 ml 350 ml # Bowel Movements 0 0 0 0 (Marek Hernandez MD R1) Result Diagram: 08/25/16 0348 08/25/16347 Objective Remarks GENERAL: WDWN elderly white male lying in bed in NAD. NECK: No JVD. CARDIOVASCULAR: NRRR. Normal S1/S2. No MRG. Left dorsalis pedis pulse present, normal capillary refill, able to move toes and has normal sensation on that foot. RESPIRATORY: CTAB. No crackles or wheezes. MUSCULOSKELETAL: No cyanosis, no edema. NEUROLOGICAL: Awake and alert. Normal speech. Sensation grossly intact BUE and BLE. (Marek Hernandez MD R1) A/P Assessment and Plan 80 year old male with PMH of AFib on Eliquis, HTN presenting with: Discharge Planning Downgrade to Med/surg floor today. Likely to rehab on discharge. (Marek Hernandez MD R1) Attending Attestation Patient seen and examined, discussed with Dr Hernandez. I agree with assessment and management as documented and discussed with me. Pt reports feeling a bit better. Nursing reports two runs of V tach overnight. AICD did not fire, but rate <180. Of note, AICD was interrogated postoperatively and was found to be functioning. Appreciate advanced practice nurse psychotherapist. Appreciate plugman. Will decrease IVF to 50mL/hr x 1 L and monitor Is/Os as well as oxygenation closely. (Ember Blanco MD) Problem List: (1) Postoperative hypotension Status: Resolved Plan: Needed norsynephrine intraoperatively and required Levophed drip intermittently. - Continual monitoring of blood pressure. - May require A-line with flow tracker if not improving - Getting gentle hydration at 80 mls per hour, monitor for fluid overload - Morphine pump discontinued as it may be contributing to low pressures. - Valsartan and carvedilol currently on hold. - Remain in ICU with critical care on board until hemodynamically stable. (2) Acute kidney failure Status: Acute Plan: Creatinine bumped from 1.05 to 2.23 and BUN from 17 to 24, with significantly decreased GFR. Urine output 280 mls. Weights increasing. Likely etiology is low blood pressures, poor perfusion to the kidneys. - Monitor daily weights - Renally dose medication - Avoid nephrotoxic medication - NS @ 50 cc/hr (decreased from 80 due to slowed rate of Cr rise and need to use caution with fluids due to CHF) - Consider consulting nephrology if not quickly improving (3) Status post revision of total replacement of left knee Status: Acute Plan: POD 3 s/p revision L total knee secondary to pain and failed arthroplasty. - Knee currently in kinetic device - Physical therapy as tolerated - [place] for pain control, Dilaudid for breakthrough. 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 - Eliquis resumed at 2.5 mg bid - Carvedilol currently held for low blood pressures - Amiodarone continued at 200 mg qday - Continue monitoring - Cardiology on board (5) FEN/PPX Status: Acute Plan: Fluids: IVF 50 mls/hr of normal saline Elecs: Monitor and replete as needed Acute renal failure, monitor fluid status Nutrition: Advance diet as tolerated DVT: Continue home Eliquis, SCD's dw Dr. Blanco (Marek Hernandez MD R1) Problem Qualifiers (1) Acute kidney failure: Qualified Code: N17.9 - Acute renal failure, unspecified acute renal failure type (2) Atrial fibrillation: Qualified Code: I48.0 - Paroxysmal atrial fibrillation Marek Hernandez MD R1 Aug 25, 2016 10:15 Ember Blanco MD Aug 25, 2016 20:38
--- NOTE | 2016-08-25 10:17 | RADRPT ---
EXAM DATE/TIME: 08/25/2016 08:42 [facility] COMPARISON: No previous studies available for comparison. INDICATIONS : Increased BUN and Creatinine. MEDICAL HISTORY : Myocardial infarction. Hypertension. Atrial fibrillation. Arthritis. Anklospondilosis. SURGICAL HISTORY : Hemorrhoidectomy. Pacemaker. Left knee surgery. Lasik eye surgery. Bilateral partial knee replaceme nts. Cardiac ablations. ENCOUNTER: Initial ACUITY: 1 day PAIN SCORE: 0/10 LOCATION: Bilateral flank MEASUREMENTS: RIGHT KIDNEY: 11.9 x 5.3 x 5.5 cm LEFT KIDNEY: 12.4 x 6.2 x 5.3 cm FINDINGS: RIGHT KIDNEY: Renal cortex is normal in thickness and echotexture. No hydronephrosis, stone, or mass. LEFT KIDNEY: Renal cortex is normal in thickness and echotexture. No hydronephrosis, stone, or concerning mass. Small well-circumscribed simple cyst. BLADDER: Decompressed. CONCLUSION: Normal appearance of the kidneys. No evidence of hydronephrosis. Ana Ty MD on August 25, 2016 at 10:09 Board Certified Radiologist. This report was verified electronically.
[2016-08-25] MEDS ORDERED: oxyCODONE/ACETAMINOPHEN 10 MG/325 MG TAB PO PRN (10:30)
--- NOTE | 2016-08-25 10:36 | EKG ---
Date Performed: 08/25/2016 Time Performed: 01:32:28 PTAGE: 80 years EKG: Sinus rhythm . Possible inferior infarct - age undetermined Possible anterior infarct - age undetermined Lateral S T-T changes may be due to myocardial ischemia Low QRS voltages in precordial leads Compared to prior tracing no significant change Abnormal ECG PREVIOUS TRACING : 08/24/2016 00.51 DOCTOR: Mehreen Rodriguez Interpretating Date/Time 08/25/2016 10:30:36
[2016-08-25] MEDS ORDERED: ALLO300T2 PO (11:07)
--- NOTE | 2016-08-25 11:08 | PD.ORT.PN ---
Subjective Subjective Remarks Pt complaining of pain in both arms and legs. Not too much pain in operative knee. History of gout. Objective Vitals Vital Signs Date Time Temp Pulse Resp B/P Pulse Ox O2 Delivery O2 Flow Rate FiO2 08/25/16 10:00 83 08/25/16 08:00 77 08/25/16 08:00 98.1 77 24 100/58 97 08/25/16 07:59 96 Nasal Cannula 2.00 08/25/16 07:00 96 Nasal Cannula 3.00 08/25/16 06:20 22 08/25/16 06:00 81 08/25/16 04:00 90 08/25/16 04:00 98.4 90 19 111/59 95 08/25/16 02:00 80 08/25/16 00:00 82 08/25/16 00:00 98.4 82 14 114/58 97 08/24/16 22:00 90 08/24/16 20:00 98.8 84 17 101/58 95 08/24/16 20:00 83 08/24/16 19:00 95 Nasal Cannula 2.00 08/24/16 18:00 87 08/24/16 16:00 85 08/24/16 16:00 97.8 85 12 99/58 95 08/24/16 14:00 75 08/24/16 12:00 83 08/24/16 12:00 98.3 86 18 91/54 94 I/O 08/24/16 08/24/16 08/24/16 08/25/16 08/25/16 08/25/16 07:00 15:00 23:00 07:00 15:00 23:00 Intake Total 834 ml 1389 ml 1121 ml 932 ml 511 ml Output Total 80 ml 102 ml 125 ml 350 ml 220 ml Balance 754 ml 1287 ml 996 ml 582 ml 291 ml Intake Oral 580 ml 480 ml 240 ml 240 ml IV Total 834 ml 809 ml 641 ml 692 ml 271 ml Output Urine Total 80 ml 102 ml 125 ml 350 ml 220 ml # Bowel Movements 0 0 0 0 Result Diagram: 08/25/16 0348 08/25/168 Imaging Last 24 hours Impressions Knee X-Ray 08/22/16 0819 Signed Impressions: Service Date/Time: Thursday, August 22, 2016 14:35 - CONCLUSION: Total knee arthroplasty with near-anatomic alignment. Sam Frank MD Objective Remarks Dressing dry and intact. Moving toes well. No calf tenderness. Pain in right ankle. Tenderness in left elbow where he had A line. NV intact. Assessment & Plan Ortho Post Op Day #: 3 Problem List: Assessment and Plan Orthopedically doing well. Will restart allopurinol for his gout. Solitario Dunn MD Aug 25, 2016 11:08
[2016-08-25] MEDS ORDERED: BUMETANIDE INJ 1 MG/4 ML VIAL IVP ONE (12:15)
--- NOTE | 2016-08-25 12:22 | HHI.NPPN ---
Subjective Additional Remarks Feeling better today, transferred out of ICU this morning Objective Data Data 08/24/16 08/25/16 19:00 07:00 Intake Total 1389 ml 2053 ml Output Total 102 ml 475 ml Balance 1287 ml 1578 ml Intake Oral 580 ml 720 ml IV Total 809 ml 1333 ml Output Urine Total 102 ml 475 ml # Bowel Movements 0 0 Vital Signs Date Time Temp Pulse Resp B/P Pulse Ox O2 Delivery O2 Flow Rate FiO2 08/25/16 10:00 83 08/25/16 08:00 77 08/25/16 08:00 98.1 77 24 100/58 97 08/25/16 07:59 96 Nasal Cannula 2.00 08/25/16 07:00 96 Nasal Cannula 3.00 08/25/16 06:20 22 08/25/16 06:00 81 08/25/16 04:00 90 08/25/16 04:00 98.4 90 19 111/59 95 08/25/16 02:00 80 08/25/16 00:00 82 08/25/16 00:00 98.4 82 14 114/58 97 08/24/16 22:00 90 08/24/16 20:00 98.8 84 17 101/58 95 08/24/16 20:00 83 08/24/16 19:00 95 Nasal Cannula 2.00 08/24/16 18:00 87 08/24/16 16:00 85 08/24/16 16:00 97.8 85 12 99/58 95 08/24/16 14:00 75 -: 08/25/16 0348 08/25/16 0348 Microbiology 08/24/16 Urine Culture, Received Pending Physical Exam General Appearance: Well Developed, Well Nourished, No Acute Distress Eyes Eye Exam: Pupils Equal Throat Throat Exam: Oral Mucosa [place] & Moist Neck Neck Exam: Neck Supple Pulmonary Resp Exam: Decreased Bases, Diminished Breath Sounds Cardiology CV Exam: Regular Gastrointestinal/Abdomen GI Exam: Soft, Non-Tender, Bowel Sounds Present Integumentary Skin Exam: Dry, Intact Extremeties Extremities Exam: Trace Edema Neurologic Neuro Exam: Alert, Awake, Oriented, Speech Clear Assessment/Plan Problem List: (1) RAY (acute kidney injury) Plan: RAY secondary to post-operative hypotension. Initially on pressor support, off pressors now. BP has been improving. Creatinine 1.0 pre-op. Creatinine 2.4 ->2.5 today Encouraged patient to take in PO intake, little appetite post surgery UOP slightly improved to 500 cc today. IVFs decreased from 80cc/hour to 50cc/ hour with CHF history. If stable and tolerating PO tomorrow, can d/c IVFs tomorrow. (2) Atrial fibrillation Plan: Continues on Lovenox, was on eliquis previously (3) Status post revision of total replacement of left knee Plan: stable. continue to follow with orthopaedics. (4) CHF (congestive heart failure) Plan: 20% EF Caution with IVFs - plan to stop in AM if BP stable Volume status stable Problem Qualifiers (1) Atrial fibrillation: Qualified Code: I48.0 - Paroxysmal atrial fibrillation (2) CHF (congestive heart failure): Qualified Code: I50.9 - Congestive heart failure, unspecified congestive heart failure chronicity, unspecified congestive heart failure type Tom Thomas MD Aug 25, 2016 12:22
--- NOTE | 2016-08-25 13:32 | HHI.CCPN ---
Subjective Remarks/Hospital Course S/P TKA with moderate hypotension, now resolved. 08/24: Oliguria persists with rising weight and fluid. I will place an arterial line and follow flotrac if this persists, look specifically index. 08/25: RAY has hopefully peaked. He persists in BP much lower than his norm. Patient refused arterial line yesterday. I remain concerned about his hemodynamics. Objective Vital Signs Date Time Temp Pulse Resp B/P Pulse Ox O2 Delivery O2 Flow Rate FiO2 08/25/16 10:00 83 08/25/16 08:00 98.1 24 100/58 97 08/25/16 07:59 Nasal Cannula 2.00 Intake and Output 08/24/16 08/24/16 08/25/16 08:00 16:00 00:00 Intake Total 834 ml 1389 ml 1121 ml Output Total 80 ml 102 ml 125 ml Balance 754 ml 1287 ml 996 ml Result Diagram: 08/25/16 0348 08/25/16 0348 Imaging Last 24 hours Impressions Knee X-Ray 08/22/16818 Signed Impressions: Service Date/Time: August 14:35 - CONCLUSION: Total knee arthroplasty with near-anatomic alignment. Sam Frank MD Objective Remarks . SKIN: Warm and dry. HEAD: Normocephalic. NECK: Supple, trachea midline. CARDIOVASCULAR: Regular rate and rhythm without murmurs, gallops, or rubs. No JVD. RESPIRATORY: Breath sounds equal bilaterally. No accessory muscle use. No wheezes or crackles. GASTROINTESTINAL: Abdomen soft, non-tender, nondistended. BS active. MUSCULOSKELETAL: No cyanosis, or edema. EXTREMITIES: Well perfused. NEURO: O X 3, alert, cooperative. Moves 4 limbs to command. A/P Assessment and Plan 80 with history of atrial fibrillation hypertension now presenting for removal of hardware and revision of left total knee arthroplasty due to pain and disability and failure of left knee arthroplasty. Assessment and Plan: Hypotension - Post general anesthesia - Volume resuscitation with IV fluids - Off Levophed and Benigno-Synephrine during my exam - Resolved - Hypotension recurred last night. Failure total knee endoprosthesis - Status post revision of total replacement of left knee - Postop day 0 - PT and OT eval and treat - Ancef postoperatively - Management per orthopedic surgeon Atrial fibrillation - Chronic and rate controlled - Resume Eliquis when okay with the surgeon - Currently bridged with Lovenox twice a day - Continue amiodarone History of Essential hypertension - Hold home by mouth meds do to hypotension - Resume when hemodynamically improved DVT GI prophylaxis - Regular diet - Lovenox twice a day Overall impression: Relative hypotension persists in the context of a normally hypertensive patient. Oliguria little improved. Weight up considerably. CXR is clear! Nicolas Trujillo MD Aug 25, 2016 13:32
[2016-08-25] MEDS: oxyCODONE/ACETAMINOPHEN 10 MG/325 MG TAB PO PRN ×2 (18:20→22:14)
--- NOTE | 2016-08-25 19:19 | MP ---
cc: Solitario DUNN DATE OF SURGERY: 08/22/2016. 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 POSTOPERATIVE DIAGNOSIS: Failed knee replacement left knee. OPERATIVE PROCEDURE PERFORMED: Revision left knee arthroplasty using the [place] Total Knee System. 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 SURGEON: Solitario Dunn MD. CONTRIBUTION SOLICITOR: SANDRA Tang. ANESTHESIA General intubation. LENGTH OF CASE: The case took six (6) hours and necessitated quite a bit of extra surgery as follows: DESCRIPTION OF THE PROCEDURE IN DETAIL: The patient brought to the operating room and placed on the operating table in the supine position. After successful induction of general anesthesia, the patient's left knee, thigh and leg were prepped and then draped in the usual manner. No tourniquet was utilized until cementing was done. An anterior medial incision was then made 12 inches in length extending from the distal quads medial to the patella down the medial side of the tibial shaft 5 inches distal to the joint surface. Incision carried down first through the soft tissue medial to the patella tendon and proximal tibia and the tibial plateau to expose the six hole side plate. At this point in time, several screwdrivers were tried and could not be found to remove the hardware. The debridement and removal of the plate and screws necessitated finding a screwdriver that would fit as it was a DePuy plate but the screwdrivers that were DePuy did not fit therefore we had to improvise and for several of them use a reverse thread screw technique to remove two of the screws. No reverse technique thread system could fit; therefore, the plate was bent and had to be freed from the screws by flexing around the screw holes. Once the plate was removed, the two remaining screws were removed using vise fluid power mechanic. This part of the procedure took an extra hour. Once the screws were removed, the wound was irrigated. Next the incision was carried down through the medial parapatellar incision around the patella to the knee joint. Clear fluid was then removed. Serous fluid removed and sent to the lab for stat Gram stain and culture. The stat Gram stain revealed a few white cells, no bacteria seen. The case continued to progress. The knee was extended and the patella freed to allow the posterior aspect of the patella to be visualized and held with patellar clamps while the posterior aspect of the articulating surface was removed using an oscillating saw. A large cyst was noted in the most medial portion of the patella 1 cm x 1 cm in diameter. This needed to be curetted and later filled with cement. The trials were found to track with the aforementioned size after the three drill holes were made, two of which were separate and one had to be through the cystic area which was later filled with cement. Next the knee was flexed and the femur prepared by removing all tissue around the femur. A rongeur was used to start a hole in the center-most distal portion of the femur followed by a drill followed by the intramedullary guide and the appropriate sized femur jig was selected and pins so that the distal femoral cut could be made. Then the Chamfer cut guide was applied and the chamfer cuts made followed by removal of the central lock of bone using the oscillating saw and an osteotome and smoothed with a rasp for the constraining femur to fit. Trials were then selected and found to be best fit with the aforementioned size. The femoral trial was then removed and the tibia was prepared by inserting a retractor posterior to it to bring the tibia forward and patella kept out of the way. It should also be noted that once the anterior cut was made in the femur, the femoral component was easily removed using osteotomes. Then the tibia was prepared and using the intramedullary guide to a size 13.5, the proximal tibia was removed using the cutting guide along with the polyethylene old component which was found to be completely eroded. Next the center hole was drilled and the tibia wing cut made followed by trials. Trials were found to fit best with the aforementioned components to afford full range of motion and good stability. All trials were then removed. The wound was irrigated copiously with antibiotic solution and the tourniquet inflated at this time for cementing with two batches of [place] Blue cement impregnated with antibiotics. The tibia was inserted first and impacted into place with cement followed by the femur and a trial insert. The patella was also cemented in place. It should be noted that before the tibia was prepared a large cyst was noted 2 cm in diameter and filled with cement. After all trials inserted, the tourniquet was then deflated with total tourniquet time being fourteen minutes at 300 mmHg pressure. Meticulous hemostasis was then achieved and once the cement hardened the trial insert was removed and the posterior area of the wound irrigated copiously with antibiotic solution again. Meticulous hemostasis achieved and the actual insert impacted into place and then held with a screw while the screw was tightened. Full range of motion was then appreciated with no instability. The deep fascia was then approximated using running #2 Quill. Soft tissue balancing was also needed to be accomplished by loosening up the medial collateral ligament insertion into the tibia and then also where the tibial plate was necessitated repair of the medial collateral ligament over this area along with the soft tissue closure with #1 Vicryl. The subcutaneous tissue was approximated using interrupted 2-0 and 3-0 Monocryl suture and Steri-Strips, sterile dressing and knee immobilizer. No drain utilized. The estimated blood loss was 500 mL. The sponge and suture counts were correct. The patient tolerated the procedure well and left the operating room in satisfactory condition. J. MD KRUPA Porter/CORRINE /2:14 PM /6:55 PM
[2016-08-26 03:50] VITALS: BP 102/53; PULSE 79; RESP 18; TEMP 98.8; O2SAT 97
[2016-08-26 06:27] LABS: AUTOMATED NEUTROPHIL # 6.8 TH/MM3 (1.8-7.7); BASOPHIL % 0.2 % (0.0-2.0); EOSINOPHIL # 0.1 TH/MM3 (0-0.4); EOSINOPHIL % 0.8 % (0.0-4.0); HEMO FLAGS DIFF FINAL; LYMPH % 6.3 % (9.0-44.0); LYMPHOCYTE # 0.5 TH/MM3 (1.0-4.8); MEAN CORPUSCULAR HEMOGLOBIN 33.4 PG (27.0-34.0); MEAN CORPUSCULAR HGB CONC 34.1 % (32.0-36.0); MONO % 10.3 % (0.0-8.0); NEUT % 82.4 % (16.0-70.0); PLATELET COUNT 120 TH/MM3 (150-450); RED BLOOD COUNT 2.56 MIL/MM3 (4.50-5.90); RED CELL DISTRIBUTION WIDTH 13.3 % (11.6-17.2); WHITE BLOOD COUNT 8.3 TH/MM3 (4.0-11.0)
[2016-08-26 07:05] LABS: BICARBONATE 24.2 MEQ/L (21.0-32.0); MAGNESIUM 1.9 MG/DL (1.5-2.5); POTASSIUM 4.1 MEQ/L (3.5-5.1)
[2016-08-26 08:00] VITALS: BP 126/71; PULSE 82; RESP 18; TEMP 98; O2SAT 99
--- NOTE | 2016-08-26 08:55 | HHI.FPPN ---
Subjective Remarks No acute events overnight. Feeling well and wanting to leave the hospital. No lightheadedness, CP, SOB. Able to move extremities with good sensation. PT went well yesterday per him. (Marek Hernandez MD R1) Objective Vitals Vital Signs Date Time Temp Pulse Resp B/P Pulse Ox O2 Delivery O2 Flow Rate FiO2 08/26/16 07:25 Nasal Cannula 2.50 08/26/16 03:50 98.8 79 18 102/53 97 08/25/16 23:50 97.5 82 18 109/55 96 08/25/16 20:10 97.4 89 19 127/59 98 08/25/16 17:30 100/58 08/25/16 16:00 97.3 93 16 98/54 98 08/25/16 12:00 98.0 139 17 112/56 99 08/25/16 12:00 139 08/25/16 10:00 83 I/O 08/25/16 08/25/16 08/25/16 08/26/16 08/26/16 08/26/16 07:00 15:00 23:00 07:00 15:00 23:00 Intake Total 932 ml 961 ml 720 ml 1480 ml Output Total 350 ml 220 ml 850 ml Balance 582 ml 741 ml 720 ml 630 ml Intake Oral 240 ml 240 ml 720 ml 480 ml IV Total 692 ml 721 ml 1000 ml Output Urine Total 350 ml 220 ml 850 ml # Voids 5 # Bowel Movements 0 0 0 (Marek Hernandez MD R1) Result Diagram: 08/26/16 0552 08/26/16 0552 Imaging Last Impressions Chest X-Ray 08/25/16 0400 Signed Impressions: Service Date/Time: Thursday, August 25, 2016 06:21 - CONCLUSION: Cardiomegaly. Kit Ding MD Renal Ultrasound 08/25/16 0000 Signed Impressions: Service Date/Time: Thursday, August 25, 2016 08:42 - CONCLUSION: Normal appearance of the kidneys. No evidence of hydronephrosis. Ana Ty MD Knee X-Ray 08/22/16 0819 Signed Impressions: Service Date/Time: August 14:35 - CONCLUSION: Total knee arthroplasty with near-anatomic alignment. Sam Frank MD Objective Remarks GENERAL: WDWN elderly white male lying in bed in NAD. NECK: No JVD. CARDIOVASCULAR: NRRR. Normal S1/S2. No MRG. Left dorsalis pedis pulse present, normal capillary refill, able to move toes and has normal sensation on that foot. RESPIRATORY: CTAB. No crackles or wheezes. MUSCULOSKELETAL: No cyanosis, no edema. NEUROLOGICAL: Awake and alert. Normal speech. Sensation grossly intact BUE and BLE. Medications and IVs Current Medications Medications (Trade) Dose Ordered Sig/Kenny Route Start Time Stop Time Status Last Admin (Cordarone) 200 mg DAILY PO 08/22/16 09:00 08/25/16 08:15 (Vitamin C) 1,000 mg DAILY PO 08/22/16 09:00 (Allbee C) 1 tab DAILY PO 08/23/16 09:00 Patient Own Medication PT OWN MED: ENTRE... DAILY PO 08/23/16 09:00 Hold (Aldactone) 25 mg DAILY PO 08/22/16 09:00 Hold (Vitamin B12) 5,000 mcg BID PO 08/22/16 21:00 (Mag-Ox) 400 mg DAILY PO 08/23/16 09:00 08/25/16 08:15 (Vitamin E) 800 units DAILY PO 08/23/16 09:00 (NS Flush) 2 ml UNSCH PRN IVF 08/22/16 08:30 (NS Flush) 2 ml BID IVF 08/22/16 09:00 08/25/16 21:00 (Theragran M Tab) 1 tab BID PO 08/23/16 21:00 10/22/16 20:59 (Zofran Inj) 4 mg Q6H PRN IVP 08/22/16 08:30 Temazepam 15 mg 15 mg HS PRN PO 08/22/16 08:30 (Levophed-Dextrose Drip) 250 ml @ 0 mls/hr TITRATE IV 08/22/16 15:45 Hold (Folate) 1 mg DAILY PO 08/23/16 09:00 08/28/16 08:59 (Vitamin B1) 100 mg DAILY PO 08/23/16 09:00 (Romazicon Inj) 0.2 mg Q1M PRN IV PUSH 08/22/16 22:30 (Ativan) 1 mg Q4H PRN PO 08/22/16 22:30 (Ativan) 2 mg Q2H PRN PO 08/22/16 22:30 (Ativan Inj) 2 mg Q15M PRN IV PUSH 08/22/16 22:30 (Coreg) 3.125 mg Q12H PO 08/23/16 22:00 Hold (Diovan) 40 mg Q12H PO 08/23/16 17:00 Hold (Eliquis) 2.5 mg BID PO 08/23/16 21:00 08/25/16 22:05 (Dilaudid Pf Inj) 0.5 mg Q3H PRN IV PUSH 08/24/16 13:15 (Dilaudid Pf Inj) 1 mg Q3H PRN IV PUSH 08/24/16 13:15 08/25/16 14:28 (Tylenol) 650 mg Q6H PRN PO 08/24/16 13:15 ([place]-Colace) 2 tab BID PO 08/24/16 14:00 08/25/16 22:04 (Percocet 10-325 Mg) 1 tab Q4H PRN PO 08/25/16 10:30 08/25/16 22:14 (Percocet 10-325 Mg) 2 tab Q4H PRN PO 08/25/16 10:30 (Zyloprim) 300 mg DAILY PO 08/26/16 09:00 (Marek Hernandez MD R1) A/P Assessment and Plan 80 year old male with PMH of AFib on Eliquis, HTN presenting with: Discharge Planning Likely to rehab on discharge. (Marek Hernandez MD R1) Attending Attestation Patient seen and examined, discussed with resident team. I agree with assessment and management as documented and discussed with me. Pt feeling better, but has concerns today. Pt complains of left arm swelling and pain, which has been since surgery. Overall, his swelling is improving. Get OT evaluation. Blood pressure and kidney function has improved. (Ember Blanco MD) Problem List: (1) Postoperative hypotension Status: Resolved Plan: Needed norsynephrine intraoperatively and required Levophed drip intermittently. - Continual monitoring of blood pressure. - May require A-line with flow tracker if not improving - Getting gentle hydration at 80 mls per hour, monitor for fluid overload - Morphine pump discontinued as it may be contributing to low pressures. - Valsartan and carvedilol currently on hold. - Remain in ICU with critical care on board until hemodynamically stable. (2) Acute kidney failure Status: Resolved Plan: Creatinine bumped from 1.05 to 2.23 and BUN from 17 to 24, with significantly decreased GFR. Urine output >1000 mls. Weights increasing. Likely etiology is low blood pressures, poor perfusion to the kidneys. Cr normalized at 1.27 on 08/26 - Monitor daily weights - Renally dose medication - Avoid nephrotoxic medication - Off IVF since 0600 on 08/26 (3) Status post revision of total replacement of left knee Status: Acute Plan: POD 4 s/p revision L total knee secondary to pain and failed arthroplasty. - Knee currently in kinetic device - Physical therapy as tolerated - [place] for pain control, Dilaudid for breakthrough. 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 - Eliquis resumed at 2.5 mg bid - Carvedilol currently held for low blood pressures - Amiodarone continued at 200 mg qday - Continue monitoring - Cardiology on board (5) FEN/PPX Status: Acute Plan: Fluids: PO only at this time Elecs: Monitor and replete as needed Nutrition: Advance diet as tolerated DVT: Continue home Eliquis, SCD's dw Dr. Blanco (Marek Hernandez MD R1) Problem Qualifiers (1) Acute kidney failure: Qualified Code: N17.9 - Acute renal failure, unspecified acute renal failure type (2) Atrial fibrillation: Qualified Code: I48.0 - Paroxysmal atrial fibrillation Marek Hernandez MD R1 Aug 26, 2016 08:55 Ember Blanco MD Aug 26, 2016 12:25
[2016-08-26] MEDS: MAGNESIUM OXIDE 400 MG TAB PO SCH (09:00)
[2016-08-26] MEDS: THIAMINE HCL 100 MG TAB PO SCH (09:00)
[2016-08-26] MEDS: SODIUM CHLORIDE 0.9% FLUSH 5 ML FLUSH IVF SCH ×2 (09:00→20:04)
[2016-08-26] MEDS: CYANOCOBALAMIN 1,000 MCG TAB PO SCH ×2 (09:00→20:04)
[2016-08-26] MEDS: MULTIVITAMINS/MINERALS THERAPEUTIC TAB PO SCH ×2 (09:00→20:04)
[2016-08-26] MEDS: FOLIC ACID 1 MG TAB PO SCH (09:00)
[2016-08-26] MEDS: VITAMIN B COMPLEX/VIT C TAB PO SCH (09:00)
[2016-08-26] MEDS: ASCORBIC ACID 500 MG TAB PO SCH (09:00)
[2016-08-26] MEDS: VITAMIN E 400 UNIT CAP PO SCH (09:00)
[2016-08-26] MEDS: DOCUSATE SODIUM 50 MG/SENNA 8.6 MG TAB PO SCH ×2 (10:31→20:04)
[2016-08-26] MEDS: AMIODARONE 200 MG TAB PO SCH (10:32)
[2016-08-26] MEDS: APIXABAN 2.5 MG TABLET PO SCH ×2 (10:32→20:04)
[2016-08-26] MEDS: ALLOPURINOL 300 MG TAB PO SCH (10:32)
[2016-08-26] MEDS: oxyCODONE/ACETAMINOPHEN 10 MG/325 MG TAB PO PRN ×2 (10:37→20:07)
--- NOTE | 2016-08-26 10:40 | HHI.NPPN ---
Subjective Renal Failure: Acute Interval History Renal function is better. He has developed edema. at bedside, having pain in left knee. (Carmina Longoria) Review of Systems General Constitutional: Fatigue (Carmina Longoria) Cardiovascular Cardiac: Edema (Carmina Longoria) Musculoskeletal MS: Pain/Stiffness, Swelling in Joint (Carmina Longoria) Objective Data Data 08/25/16 08/26/16 19:00 07:00 Intake Total 961 ml 2200 ml Output Total 220 ml 850 ml Balance 741 ml 1350 ml Intake Oral 240 ml 1200 ml IV Total 721 ml 1000 ml Output Urine Total 220 ml 850 ml # Voids 5 # Bowel Movements 0 Vital Signs Date Time Temp Pulse Resp B/P Pulse Ox O2 Delivery O2 Flow Rate FiO2 08/26/16 08:00 98.0 82 18 126/71 99 08/26/16 07:25 Nasal Cannula 2.50 08/26/16 03:50 98.8 79 18 102/53 97 08/25/16 23:50 97.5 82 18 109/55 96 08/25/16 20:10 97.4 89 19 127/59 98 08/25/16 17:30 100/58 08/25/16 16:00 97.3 93 16 98/54 98 08/25/16 12:00 98.0 139 17 112/56 99 08/25/16 12:00 139 (Carmina Longoria) -: 08/26/16 0552 08/26/16 0552 Imaging Last Impressions Chest X-Ray 08/25/16 0400 Signed Impressions: Service Date/Time: Thursday, August 25, 2016 06:21 - CONCLUSION: Cardiomegaly. Kit Ding MD Renal Ultrasound 08/25/16 0000 Signed Impressions: Service Date/Time: Thursday, August 25, 2016 08:42 - CONCLUSION: Normal appearance of the kidneys. No evidence of hydronephrosis. Ana Ty MD Knee X-Ray 08/22/16 0819 Signed Impressions: Service Date/Time: August 14:35 - CONCLUSION: Total knee arthroplasty with near-anatomic alignment. Sam Frank MD Tubes & Lines: Cruz (Carmina Longoria) Physical Exam General Appearance: Well Developed, Well Nourished, No Acute Distress, Comfortable, Obese (Carmina Longoria [employer] ENGINEERING [employer]PERVIS[employer]) Eyes Eye Exam: Pupils Equal (Carmina Longoria BStanislav M[employer] ENGINEERING SUPERVISOR) Throat Throat Exam: Oral Mucosa [place] & Moist (Carmina Longoria B. MINE ENGINEERING SUPERVISOR) Neck Neck Exam: Neck Supple (Carmina Longoria MINE ENGINEERING SUPERVISOR) Pulmonary Resp Exam: Clear Bilaterally, Breath Sounds Equal, Decreased Bases, Diminished Breath Sounds (Carmina Longoria [employer]INE ENGINEERING SUPERVISOR) Cardiology CV Exam: Good Perfusion, Irregular (Carmina Longoria. MINE ENGINEERING SUPERVISOR) Gastrointestinal/Abdomen GI Exam: Soft, Non-Tender, Bowel Sounds Present (Carmina Longoria [employer] ENGINEERING SUPERVISOR) Genitourinary Exam: Clear Urine (Carmina Longoria. MINE ENGINEERING SUPERVISOR) Musculoskeletal MS Exam: Joints Intact, Normal Tone MS Remarks left knee immobilized (Carmina Longoria MINE ENGINEERING SUPERVISOR) Integumentary Skin Exam: Dry, Intact (Carmina Longoria MINE ENGINEERING SUPERVISOR) Extremeties Extremities Exam: Pedal Pulses Palpable, Moderate Edema (Carmina Longoria B. MINE ENGINEERING SUPERVISOR) Neurologic Neuro Exam: Alert, Awake, Oriented, Speech Clear, Moving All Extremities ( Carmina Longoria [employer]INE ENGINEERING SUPERVISOR) Psychiatric Psych Exam: Appropriate Responses (Carmina Longoria) Assessment/Plan Problem List: (1) RAY (acute kidney injury) Plan: RAY secondary to post-operative hypotension renal US negative BP has improved, medications still are held creatinine has also improved off IV fluid he is edematous, begin lasix po and monitor effect monitor urine output, remove cruz when able renal panel in am (2) Atrial fibrillation Plan: eliquis resumed rate controlled (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 Agree with above assessment and plan. Renal function has improved. He has signs of fluid overload. Start diuretics. ( Isidro Zamora MD) Problem Qualifiers (1) Atrial fibrillation: Qualified Code: I48.0 - Paroxysmal atrial fibrillation (2) CHF (congestive heart failure): Qualified Code: I50.9 - Congestive heart failure, unspecified congestive heart failure chronicity, unspecified congestive heart failure type Carmina Longoria Aug 26, 2016 10:40 Isidro Zamora MD Aug 26, 2016 11:13
--- NOTE | 2016-08-26 11:27 | PD.CARD.PN ---
Subjective Subjective Remarks no angina or dyspnea. Objective Medications Current Medications Medications (Trade) Dose Ordered Sig/Kenny Route Start Time Stop Time Status Last Admin (Cordarone) 200 mg DAILY PO 08/22/16 09:00 08/26/16 10:32 (Vitamin C) 1,000 mg DAILY PO 08/22/16 09:00 (Allbee C) 1 tab DAILY PO 08/23/16 09:00 Patient Own Medication PT OWN MED: ENTRE... DAILY PO 08/23/16 09:00 Hold (Aldactone) 25 mg DAILY PO 08/22/16 09:00 Hold (Vitamin B12) 5,000 mcg BID PO 08/22/16 21:00 (Mag-Ox) 400 mg DAILY PO 08/23/16 09:00 08/25/16 08:15 (Vitamin E) 800 units DAILY PO 08/23/16 09:00 (NS Flush) 2 ml UNSCH PRN IVF 08/22/16 08:30 (NS Flush) 2 ml BID IVF 08/22/16 09:00 08/26/16 09:00 (Theragran M Tab) 1 tab BID PO 08/23/16 21:00 10/22/16 20:59 (Zofran Inj) 4 mg Q6H PRN IVP 08/22/16 08:30 Temazepam 15 mg 15 mg HS PRN PO 08/22/16 08:30 (Levophed-Dextrose Drip) 250 ml @ 0 mls/hr TITRATE IV 08/22/16 15:45 Hold (Folate) 1 mg DAILY PO 08/23/16 09:00 08/28/16 08:59 (Vitamin B1) 100 mg DAILY PO 08/23/16 09:00 (Romazicon Inj) 0.2 mg Q1M PRN IV PUSH 08/22/16 22:30 (Ativan) 1 mg Q4H PRN PO 08/22/16 22:30 (Ativan) 2 mg Q2H PRN PO 08/22/16 22:30 (Ativan Inj) 2 mg Q15M PRN IV PUSH 08/22/16 22:30 (Coreg) 3.125 mg Q12H PO 08/23/16 22:00 Hold (Diovan) 40 mg Q12H PO 08/23/16 17:00 Hold (Eliquis) 2.5 mg BID PO 08/23/16 21:00 08/26/16 10:32 (Dilaudid Pf Inj) 0.5 mg Q3H PRN IV PUSH 08/24/16 13:15 (Dilaudid Pf Inj) 1 mg Q3H PRN IV PUSH 08/24/16 13:15 08/25/16 14:28 (Tylenol) 650 mg Q6H PRN PO 08/24/16 13:15 ([place]-Colace) 2 tab BID PO 08/24/16 14:00 08/26/16 10:31 (Percocet 10-325 Mg) 1 tab Q4H PRN PO 08/25/16 10:30 08/26/16 10:37 (Percocet 10-325 Mg) 2 tab Q4H PRN PO 08/25/16 10:30 (Zyloprim) 300 mg DAILY PO 08/26/16 09:00 08/26/16 10:32 (Lasix) 40 mg DAILY PO 08/26/16 11:00 Vital Signs / I&O Vital Signs Date Time Temp Pulse Resp B/P Pulse Ox O2 Delivery O2 Flow Rate FiO2 08/26/16 08:00 98.0 82 18 126/71 99 08/26/16 07:25 Nasal Cannula 2.50 08/26/16 03:50 98.8 79 18 102/53 97 08/25/16 23:50 97.5 82 18 109/55 96 08/25/16 20:10 97.4 89 19 127/59 98 08/25/16 17:30 100/58 08/25/16 16:00 97.3 93 16 98/54 98 08/25/16 12:00 98.0 139 17 112/56 99 08/25/16 12:00 139 I/O 08/25/16 08/25/16 08/25/16 08/26/16 08/26/16 08/26/16 07:00 15:00 23:00 07:00 15:00 23:00 Intake Total 932 ml 961 ml 720 ml 1480 ml Output Total 350 ml 220 ml 850 ml Balance 582 ml 741 ml 720 ml 630 ml Intake Oral 240 ml 240 ml 720 ml 480 ml IV Total 692 ml 721 ml 1000 ml Output Urine Total 350 ml 220 ml 850 ml # Voids 5 # Bowel Movements 0 0 0 Physical Exam Alert Chest Clear ant, Neck no JVD CV S1S2 RRR left arm edematoes / prior infiltrated IV? Laboratory Laboratory Tests Test 08/26/16 05:52 White Blood Count 8.3 TH/MM3 Red Blood Count 2.56 MIL/MM3 Hemoglobin 8.5 GM/DL Hematocrit 25.0 % Mean Corpuscular Volume 98.0 FL Mean Corpuscular Hemoglobin 33.4 PG Mean Corpuscular Hemoglobin 34.1 % Concent Red Cell Distribution Width 13.3 % Platelet Count 120 TH/MM3 Mean Platelet Volume 8.9 FL Neutrophils (%) (Auto) 82.4 % Lymphocytes (%) (Auto) 6.3 % Monocytes (%) (Auto) 10.3 % Eosinophils (%) (Auto) 0.8 % Basophils (%) (Auto) 0.2 % Neutrophils # (Auto) 6.8 TH/MM3 Lymphocytes # (Auto) 0.5 TH/MM3 Monocytes # (Auto) 0.9 TH/MM3 Eosinophils # (Auto) 0.1 TH/MM3 Basophils # (Auto) 0.0 TH/MM3 CBC Comment DIFF FINAL Differential Comment Sodium Level 140 MEQ/L Potassium Level 4.1 MEQ/L Chloride Level 108 MEQ/L Carbon Dioxide Level 24.2 MEQ/L Anion Gap 8 MEQ/L Blood Urea Nitrogen 30 MG/DL Creatinine 1.27 MG/DL Estimat Glomerular Filtration 54 ML/MIN Rate Random Glucose 82 MG/DL Calcium Level 8.6 MG/DL Phosphorus Level 2.5 MG/DL Magnesium Level 1.9 MG/DL Assessment and Plan Problem List: (1) Postoperative hypotension Assessment and Plan: resolved (2) Atrial fibrillation Assessment and Plan: in sinus rhythm (3) Cardiac defibrillator in situ (4) Hyperlipidemia (5) Cardiomyopathy (6) Essential hypertension (7) Acute kidney failure Assessment and Plan: resolving ATN Assessment and Plan OK to go to rehab. Restart carvedilol 3.125mg bid tomoroow if BP stable Problem Qualifiers (1) Atrial fibrillation: Qualified Code: I48.0 - Paroxysmal atrial fibrillation (2) Acute kidney failure: Qualified Code: N17.9 - Acute renal failure, unspecified acute renal failure type Kermit Silverio MD Aug 26, 2016 11:27
[2016-08-26] MEDS: FUROSEMIDE 40 MG TAB PO SCH (11:55)
[2016-08-26 12:00] VITALS: BP 107/62; PULSE 87; RESP 18; TEMP 98.9; O2SAT 96
--- NOTE | 2016-08-26 12:05 | RADRPT ---
EXAM DATE/TIME: 08/26/2016 11:37 [facility] COMPARISON: No previous studies available for comparison. INDICATIONS : Left elbow pain for the past five days. MEDICAL HISTORY : Arthritis. SURGICAL HISTORY : None. ENCOUNTER: Initial ACUITY: 4 - 6 days PAIN SCORE: 10/10 LOCATION: Left elbow. FINDINGS: 2 views of the left elbow demonstrate no fracture or dislocation. An anterior fat pad and possible po sterior fat pad are visualized. There is subcutaneous edema. No radiopaque foreign body is seen. CONCLUSION: 1. Possible joint effusion is present raising suspicion for an occult fracture. However, I do not see a fracture on this exam. Consider obtaining dedicated radial head views. 2. Subcutaneous edema. Kit Malcolm MD on August 26, 2016 at 12:02 Board Certified Radiologist. This report was verified electronically.
--- NOTE | 2016-08-26 12:54 | OTSOAPIP ---
TIME SESSION COMPLETED: 1200 TREATMENT TIME: 5 MINS. CHART REVIEWED. RECEIVED OCCUPATIONAL THERAPY ORDERS FROM DR. OTERO. ATTEMPTED TO SEE PATIENT. EDUCATED PATIENT AND SPOUSE IN ROLE OF OT AND OT INTERVENTION. PATIENT AND SPOUSE DECLINED EVALUATION AT THIS TIME AND DATE. BOTH PRESENTED OVERWHELMED IN MEDICAL STAY IN GENERAL AND REQUESTED FOR THERAPIST TO COME BACK TOMORROW. WILL DEFER EVALUATION AND FOLLOW UP WITH PATIENT NEXT DAY. INTERDISCIPLINARY COMMUNICATION: REVIEWED ELECTRONIC MEDICAL RECORD, SPOKE WITH CHUYITA SHAW Therapist: Candida Murrell OTR/L Signature on file
--- NOTE | 2016-08-26 13:26 | PD.ORT.PN ---
Subjective Subjective Remarks Pt complaining of pain in both arms and legs. Not too much pain in operative knee. History of gout. Feeling a little better today. Objective Vitals Vital Signs Date Time Temp Pulse Resp B/P Pulse Ox O2 Delivery O2 Flow Rate FiO2 08/26/16 08:00 98.0 82 18 126/71 99 08/26/16 07:25 Nasal Cannula 2.50 08/26/16 03:50 98.8 79 18 102/53 97 08/25/16 23:50 97.5 82 18 109/55 96 08/25/16 20:10 97.4 89 19 127/59 98 08/25/16 17:30 100/58 08/25/16 16:00 97.3 93 16 98/54 98 I/O 08/25/16 08/25/16 08/25/16 08/26/16 08/26/16 08/26/16 07:00 15:00 23:00 07:00 15:00 23:00 Intake Total 932 ml 961 ml 720 ml 1480 ml Output Total 350 ml 220 ml 850 ml Balance 582 ml 741 ml 720 ml 630 ml Intake Oral 240 ml 240 ml 720 ml 480 ml IV Total 692 ml 721 ml 1000 ml Output Urine Total 350 ml 220 ml 850 ml # Voids 5 # Bowel Movements 0 0 0 Result Diagram: 08/26/16 0552 08/26/16 0552 Imaging Last 24 hours Impressions Knee X-Ray 08/22/16 0819 Signed Impressions: Service Date/Time: August 14:35 - CONCLUSION: Total knee arthroplasty with near-anatomic alignment. Sam Frank MD Objective Remarks Dressing dry and intact. Moving toes well. No calf tenderness. Pain in right ankle. Tenderness in left elbow where he had A line. NV intact. Assessment & Plan Ortho Post Op Day #: 4 Problem List: Assessment and Plan Orthopedically doing well. Cont PT. Solitario Dunn MD Aug 26, 2016 13:26
--- NOTE | 2016-08-26 14:48 | RADRPT ---
EXAM DATE/TIME: 08/26/2016 14:20 [facility] COMPARISON: ELBOW LEFT LIMITED (AP & LAT), August 26, 2016, 11:37. INDICATIONS : Pain and edema left elbow for 5 days, pain most severe when rotating externally. Orders for internal and external rotation only MEDICAL HISTORY : None. SURGICAL HISTORY : None. ENCOUNTER: Subsequent ACUITY: 4 - 6 days PAIN SCORE: 8/10 LOCATION: Left elbow FINDINGS: Two view examination of the left elbow demonstrates no soft tissue swelling, joint effusion, fracture or dislocation. Bony mineralization is normal. No acute fractures are identified. CONCLUSION: No definite evidence for acute fracture. Ronaldo Dunlap MD on August 26, 2016 at 14:45 Board Certified Radiologist. This report was verified electronically.
[2016-08-26 16:00] VITALS: BP 123/69; PULSE 91; RESP 17; TEMP 97.8; O2SAT 98
[2016-08-26 19:40] VITALS: BP 136/79; PULSE 94; RESP 21; TEMP 99.5; O2SAT 95
[2016-08-26 20:02] VITALS: PULSE 90
[2016-08-27 00:18] VITALS: BP 139/64; PULSE 89; RESP 19; TEMP 99.1; O2SAT 94
[2016-08-27 04:24] VITALS: BP 132/79; PULSE 91; RESP 20; TEMP 99.2; O2SAT 93
[2016-08-27] MEDS: oxyCODONE/ACETAMINOPHEN 10 MG/325 MG TAB PO PRN ×3 (06:09→13:47)
[2016-08-27 08:00] VITALS: BP 116/72; PULSE 85; RESP 18; TEMP 99; O2SAT 94
[2016-08-27 08:08] LABS: HEMATOCRIT 26.9 % (39.0-51.0); REVIEW FLAG FINAL
[2016-08-27 08:13] LABS: BICARBONATE 24.2 MEQ/L (21.0-32.0); MAGNESIUM 1.6 MG/DL (1.5-2.5); POTASSIUM 3.8 MEQ/L (3.5-5.1)
--- NOTE | 2016-08-27 08:36 | PD.ORT.PN ---
Subjective Subjective Remarks Pt complaining of less pain today. Objective Vitals Vital Signs Date Time Temp Pulse Resp B/P Pulse Ox O2 Delivery O2 Flow Rate FiO2 08/27/16 08:00 99.0 85 18 116/72 94 08/27/16 04:24 99.2 91 20 132/79 93 08/27/16 00:18 99.1 89 19 139/64 94 08/26/16 20:02 90 08/26/16 19:40 99.5 94 21 136/79 95 08/26/16 16:00 97.8 91 17 123/69 98 08/26/16 12:00 98.9 87 18 107/62 96 I/O 08/26/16 08/26/16 08/26/16 08/27/16 08/27/16 08/27/16 07:00 15:00 23:00 07:00 15:00 23:00 Intake Total 1480 ml 720 ml 480 ml 240 ml Output Total 850 ml 275 ml 100 ml Balance 630 ml 720 ml 205 ml 140 ml Intake Oral 480 ml 720 ml 480 ml 240 ml IV Total 1000 ml Output Urine Total 850 ml 275 ml 100 ml # Voids 1 2 # Bowel Movements 0 1 0 0 Result Diagram: 08/27/16 0650 08/27/16 0650 Imaging Last 24 hours Impressions Knee X-Ray 08/22/16 0819 Signed Impressions: Service Date/Time: August 14:35 - CONCLUSION: Total knee arthroplasty with near-anatomic alignment. Sam Frank MD Objective Remarks Dressing dry and intact. Moving toes well. No calf tenderness. Pain in right ankle. Moving left elbow well today. Less swelling in hand. Assessment & Plan Ortho Post Op Day #: 5 Problem List: Assessment and Plan Orthopedically doing well. Cont PT. Solitario Dunn MD Aug 27, 2016 08:36
[2016-08-27] MEDS ORDERED: CARVEDILOL 3.125 MG TAB PO SCH ×2 (09:00)
[2016-08-27] MEDS: FOLIC ACID 1 MG TAB PO SCH (09:00)
[2016-08-27] MEDS: ASCORBIC ACID 500 MG TAB PO SCH (09:00)
[2016-08-27] MEDS: THIAMINE HCL 100 MG TAB PO SCH (09:00)
[2016-08-27] MEDS: VITAMIN B COMPLEX/VIT C TAB PO SCH (09:00)
[2016-08-27] MEDS: DOCUSATE SODIUM 50 MG/SENNA 8.6 MG TAB PO SCH (09:00)
[2016-08-27] MEDS: VITAMIN E 400 UNIT CAP PO SCH (09:00)
[2016-08-27] MEDS: CYANOCOBALAMIN 1,000 MCG TAB PO SCH (09:00)
[2016-08-27] MEDS: SODIUM CHLORIDE 0.9% FLUSH 5 ML FLUSH IVF SCH (09:00)
[2016-08-27] MEDS: MAGNESIUM OXIDE 400 MG TAB PO SCH (09:00)
[2016-08-27] MEDS: MULTIVITAMINS/MINERALS THERAPEUTIC TAB PO SCH (09:00)
[2016-08-27] MEDS: APIXABAN 2.5 MG TABLET PO SCH (10:07)
[2016-08-27] MEDS: FUROSEMIDE 40 MG TAB PO SCH (10:07)
[2016-08-27] MEDS: ALLOPURINOL 300 MG TAB PO SCH (10:08)
[2016-08-27] MEDS: AMIODARONE 200 MG TAB PO SCH (10:08)
--- NOTE | 2016-08-27 10:47 | HHI.NPPN ---
Subjective Renal Failure: Acute Interval History Renal function is better. Left arm edema persists. (Carmina Longoria) Review of Systems General Constitutional: Fatigue (Carmina Longoria) Cardiovascular Cardiac: Edema (Carmina Longoria) Musculoskeletal MS: Pain/Stiffness, Swelling in Joint (Carmina Longoria) Objective Data Data 08/26/16 08/27/16 19:00 07:00 Intake Total 720 ml 720 ml Output Total 275 ml 100 ml Balance 445 ml 620 ml Intake Oral 720 ml 720 ml Output Urine Total 275 ml 100 ml # Voids 1 2 # Bowel Movements 1 0 Vital Signs Date Time Temp Pulse Resp B/P Pulse Ox O2 Delivery O2 Flow Rate FiO2 08/27/16 08:00 99.0 85 18 116/72 94 08/27/16 04:24 99.2 91 20 132/79 93 08/27/16 00:18 99.1 89 19 139/64 94 08/26/16 20:02 90 08/26/16 19:40 99.5 94 21 136/79 95 08/26/16 16:00 97.8 91 17 123/69 98 08/26/16 12:00 98.9 87 18 107/62 96 (Carmina Longoria) -: 08/27/16 0650 08/27/16 0650 Imaging Last Impressions Elbow X-Ray 08/26/16 0000 Signed Impressions: Service Date/Time: Friday, August 26, 2016 14:20 - CONCLUSION: No definite evidence for acute fracture. Ronaldo Dunlap MD Chest X-Ray 08/25/16 0400 Signed Impressions: Service Date/Time: Thursday, August 25, 2016 06:21 - CONCLUSION: Cardiomegaly. Kit Ding MD Renal Ultrasound 08/25/16 0000 Signed Impressions: Service Date/Time: Thursday, August 25, 2016 08:42 - CONCLUSION: Normal appearance of the kidneys. No evidence of hydronephrosis. Ana Ty MD Knee X-Ray 08/22/16 0819 Signed Impressions: Service Date/Time: August 14:35 - CONCLUSION: Total knee arthroplasty with near-anatomic alignment. Sam Frank MD (Carmina Longoria) Physical Exam General Appearance: Well Developed, Well Nourished, No Acute Distress, Comfortable, Obese (Carmina Longoria) Eyes Eye Exam: Pupils Equal (Carmina Longoria) Throat Throat Exam: Oral Mucosa [place] & Moist (Carmina Longoria) Neck Neck Exam: Neck Supple (Carmina Longoria) Pulmonary Resp Exam: Clear Bilaterally, Breath Sounds Equal, Decreased Bases, Diminished Breath Sounds (Carmina Longoria) Cardiology CV Exam: Good Perfusion, Irregular (Carmina Longoria) Gastrointestinal/Abdomen GI Exam: Soft, Non-Tender, Bowel Sounds Present (Carmina Longoria) Genitourinary Exam: Clear Urine (Carmina Longoria) Musculoskeletal MS Exam: Joints Intact, Normal Tone MS Remarks left knee immobilized (Carmina Longoria) Integumentary Skin Exam: Dry, Intact (Carmina Longoria) Extremeties Extremities Exam: Pedal Pulses Palpable, Moderate Edema Extremeties Remarks left arm non pitting edema bilateral lower extremity 1-2+ edema, improving (Carmina Longoria) Neurologic Neuro Exam: Alert, Awake, Oriented, Speech Clear, Moving All Extremities ( Carmina Longoria) Psychiatric Psych Exam: Appropriate Responses (Carmina Longoria) Assessment/Plan Discussed Condition With: Patient, Spouse Problem List: (1) RAY (acute kidney injury) Plan: RAY secondary to post-operative hypotension renal US was negative renal function has improved on Lasix , resume Aldactone losartan on hold, he is on Entresto off IV fluid, tolerating diet we will sign off at this time (2) Atrial fibrillation Plan: eliquis resumed rate controlled (3) Status post revision of total replacement of left knee Plan: prn pain medications PT/OT ortho following left arm edematous, may want to consider US of left arm to rule out DVT (4) CHF (congestive heart failure) Plan: 20% EF monitor fluid volume status (Carmina Longoria) Plan patient was seen and examined. Renal function has improved. We will sign off at this time. (Isidro Zamora MD) Problem Qualifiers (1) Atrial fibrillation: Qualified Code: I48.0 - Paroxysmal atrial fibrillation (2) CHF (congestive heart failure): Qualified Code: I50.9 - Congestive heart failure, unspecified congestive heart failure chronicity, unspecified congestive heart failure type Carmina Longoria [facility] Aug 27, 2016 10:47 Isidro Zamora MD Aug 27, 2016 11:50
[2016-08-27 12:00] VITALS: BP 109/69; PULSE 78; RESP 18; TEMP 97; O2SAT 93
[2016-08-27] MEDS ORDERED: CARV3.125 PO (12:24)
--- NOTE | 2016-08-27 12:42 | HHI.DCPOC ---
Discharge Care Plan Diagnosis: (1) Status post revision of total replacement of left knee (2) Postoperative hypotension (3) CHF (congestive heart failure) (4) Ankylosing spondylitis (5) Atrial fibrillation Goals to Promote Your Health * To prevent worsening of your condition and complications * To maintain your health at the optimal level Directions to Meet Your Goals Take your medications as prescribed Follow your dietary instruction Follow activity as directed Keep your appointments as scheduled Take your immunizations and boosters as scheduled If your symptoms worsen call your PCP, if no PCP go to Urgent Care Center or Emergency Room Smoking is Dangerous to Your Health. Avoid second hand smoke Call the 24-hour hour crisis hotline for domestic abuse at Marek Hernandez MD R1 Aug 27, 2016 12:42
[2016-08-27] MEDS ORDERED: OXYC1TAB36 PO (12:43)
--- NOTE | 2016-08-27 14:22 | HHI.FPPN ---
Subjective Remarks Sitting up in bed. Reports pain is better today. Hand swelling on left side is improving. Pain in ankles are improved. Blood pressures improved. No lightheadedness. No chest pain or shortness of breath. (Ricco Flor MD R2) Objective Vitals Vital Signs Date Time Temp Pulse Resp B/P Pulse Ox O2 Delivery O2 Flow Rate FiO2 08/27/16 12:00 97.0 78 18 109/69 93 08/27/16 08:00 99.0 85 18 116/72 94 08/27/16 04:24 99.2 91 20 132/79 93 08/27/16 00:18 99.1 89 19 139/64 94 08/26/16 20:02 90 08/26/16 19:40 99.5 94 21 136/79 95 08/26/16 16:00 97.8 91 17 123/69 98 I/O 08/26/16 08/26/16 08/26/16 08/27/16 08/27/16 08/27/16 07:00 15:00 23:00 07:00 15:00 23:00 Intake Total 1480 ml 720 ml 480 ml 240 ml Output Total 850 ml 275 ml 100 ml Balance 630 ml 720 ml 205 ml 140 ml Intake Oral 480 ml 720 ml 480 ml 240 ml IV Total 1000 ml Output Urine Total 850 ml 275 ml 100 ml # Voids 1 2 # Bowel Movements 0 1 0 0 (Ricco Flor MD R2) Result Diagram: 08/27/16 0650 08/27/16 0650 Imaging Last 72 hours Impressions Elbow X-Ray 08/26/16 0000 Signed Impressions: Service Date/Time: Friday, August 26, 2016 14:20 - CONCLUSION: No definite evidence for acute fracture. Ronaldo Dunlap MD Elbow X-Ray 08/26/16 0000 Signed Impressions: Service Date/Time: Friday, August 26, 2016 11:37 - CONCLUSION: 1. Possible joint effusion is present raising suspicion for an occult fracture. However, I do not see a fracture on this exam. Consider obtaining dedicated radial head views. 2. Subcutaneous edema. Kit Malcolm MD Chest X-Ray 08/25/16 0400 Signed Impressions: Service Date/Time: Thursday, August 25, 2016 06:21 - CONCLUSION: Cardiomegaly. Kit Ding MD Renal Ultrasound 08/25/16 0000 Signed Impressions: Service Date/Time: Thursday, August 25, 2016 08:42 - CONCLUSION: Normal appearance of the kidneys. No evidence of hydronephrosis. Ana Ty MD Objective Remarks GENERAL: Sitting up in chair, no distress, joking around NECK: No JVD. CARDIOVASCULAR: NRRR. Normal S1/S2. No MRG. Left dorsalis pedis pulse present, normal capillary refill, able to move toes and has normal sensation on that foot. RESPIRATORY: CTAB. No crackles or wheezes. MUSCULOSKELETAL: Left hand swelling improved, minimal pain on palpation today. No calf swelling or tenderness. NEUROLOGICAL: Awake and alert. Normal speech. Sensation grossly intact BUE and BLE. (Ricco Flor MD R2) A/P Assessment and Plan 80 year old male s/p revision of total knee replacement on 08/22/16, developed hypotension post-procedure with concomitant RAY that have since resolved. Discharge Planning Plan to discharge to [facility] (Ricco Flor MD R2) Attending Attestation Patient seen, examined, and discussed with resident team. I agree with assessment and management as documented and discussed with me. Pt feeling better. Tolerated addition of coreg low dose. Kidney function has improved; blood pressure has improved. Medically cleared for discharge to rehab; once OK by attending/admitting (ortho ) team. (Ember Blanco MD) Problem List: (1) Postoperative hypotension Status: Resolved Plan: Needed norsynephrine intraoperatively and required Levophed drip intermittently. Now resolved, blood pressures improved. - Consulted cardiology, will resume carvedilol at 3.125 mg bid. - Holding candida inhibitor, to be restarted at PCP's discretion. (2) Acute kidney failure Status: Resolved Plan: Creatinine bumped from 1.05 to 2.52, with significantly decreased GFR. Likely due to post-operative hypotension. Now creatinine normalized, kidney function back to normal. - Renally dose medication - Avoid nephrotoxic medication (3) Status post revision of total replacement of left knee Status: Acute Plan: POD 5 s/p revision L total knee secondary to pain and failed arthroplasty. - Physical therapy as tolerated - [place] for pain control, Dilaudid for breakthrough. - Plan to discharge to [facility] (4) Atrial fibrillation Status: Chronic Plan: CHADS2-Vasc score of 3 --> 3.2% stroke risk per year, HAS-BLED score 2 -- > intermediate risk of bleed. - Eliquis resumed at 2.5 mg bid - Carvedilol resumed per cardiology - Amiodarone continued at 200 mg qday - Continue monitoring - Cardiology on board (5) FEN/PPX Status: Acute Plan: Fluids: PO only at this time Elecs: Monitor and replete as needed Nutrition: Advance diet as tolerated DVT: Continue home Eliquis, SCD's (Ricco Flor MD R2) Problem Qualifiers (1) Acute kidney failure: Qualified Code: N17.9 - Acute renal failure, unspecified acute renal failure type (2) Atrial fibrillation: Qualified Code: I48.0 - Paroxysmal atrial fibrillation Ricco Flor MD R2 Aug 27, 2016 14:22 Ember Blanco MD Aug 27, 2016 20:11
--- NOTE | 2016-08-27 17:16 | HHI.DS ---
Discharge Summary Admission Date Aug 22, 2016 at 05:42 Discharge Date: Aug 27, 2016 Admitting Diagnosis Revision of knee replacement hardware (1) Postoperative hypotension Diagnosis: Principal Plan: Needed norsynephrine intraoperatively and required Levophed drip intermittently. Now resolved, blood pressures improved. - Consulted cardiology, will resume carvedilol at 3.125 mg bid. - Holding candida inhibitor, to be restarted at PCP's discretion. (2) Acute kidney failure Diagnosis: Principal Plan: Creatinine bumped from 1.05 to 2.52, with significantly decreased GFR. Likely due to post-operative hypotension. Now creatinine normalized, kidney function back to normal. - Renally dose medication - Avoid nephrotoxic medication (3) Status post revision of total replacement of left knee Diagnosis: Principal Plan: POD 5 s/p revision L total knee secondary to pain and failed arthroplasty. - Physical therapy as tolerated - [place] for pain control, Dilaudid for breakthrough. - Plan to discharge to [facility] (4) Atrial fibrillation Diagnosis: Secondary Plan: CHADS2-Vasc score of 3 --> 3.2% stroke risk per year, HAS-BLED score 2 -- > intermediate risk of bleed. - Eliquis resumed at 2.5 mg bid - Carvedilol resumed per cardiology - Amiodarone continued at 200 mg qday - Continue monitoring - Cardiology on board (5) FEN/PPX Diagnosis: Secondary Plan: Fluids: PO only at this time Elecs: Monitor and replete as needed Nutrition: Advance diet as tolerated DVT: Continue home [facility] Orthopedic surgery Procedures Revision of knee replacement hardware Brief History 80 yo with PMH of AFib on Eliquis, HTN presenting for revision of left knee replacement. Seen in PACU POD 0. At present he feels well but tired. He also has some lower back discomfort relieved by sitting up. He tolerated the procedure well but required neosynephrine to maintain blood pressures. BP was running low (80s/40s) in PACU and Levophed drip started by anesthesia. He denies CP/SOB, abdominal pain, headache, or vision changes. He has fatigue. CBC/BMP: 08/27/16 0650 08/27/16 0650 Significant Findings Laboratory Tests Test 08/25/16 08/25/16 08/26/16 08/27/16 00:53 03:48 05:52 06:50 Magnesium Level 1.2 MG/DL (1.5-2.5) White Blood Count 14.0 TH/MM3 (4.0-11.0) Red Blood Count 3.21 MIL/MM3 2.56 MIL/MM3 (4.50-5.90) (4.50-5.90) Hemoglobin 10.5 GM/DL 8.5 GM/DL 9.3 GM/DL (13.0-17.0) (13.0-17.0) (13.0-17.0) Hematocrit 31.7 % 25.0 % 26.9 % (39.0-51.0) (39.0-51.0) (39.0-51.0) Platelet Count 90 TH/MM3 120 TH/MM3 (150-450) (150-450) Blood Urea Nitrogen 35 MG/DL (7-18) 30 MG/DL (7-18) 26 MG/DL (7-18) Creatinine 2.52 MG/DL (0.60-1.30) Estimat Glomerular Filtration 25 ML/MIN (>89) 54 ML/MIN (>89) 66 ML/MIN (>89) Rate Neutrophils (%) (Auto) 82.4 % (16.0-70.0) Lymphocytes (%) (Auto) 6.3 % (9.0-44.0) Monocytes (%) (Auto) 10.3 % (0.0-8.0) Lymphocytes # (Auto) 0.5 TH/MM3 (1.0-4.8) Chloride Level 108 MEQ/L (98-107) Random Glucose 114 MG/DL (74-106) Phosphorus Level 2.1 MG/DL (2.5-4.9) Imaging Last 72 hours Impressions Elbow X-Ray 08/26/16 0000 Signed Impressions: Service Date/Time: Friday, August 26, 2016 14:20 - CONCLUSION: No definite evidence for acute fracture. Ronaldo Dunlap MD Elbow X-Ray 08/26/16 0000 Signed Impressions: Service Date/Time: Friday, August 26, 2016 11:37 - CONCLUSION: 1. Possible joint effusion is present raising suspicion for an occult fracture. However, I do not see a fracture on this exam. Consider obtaining dedicated radial head views. 2. Subcutaneous edema. Kit Malcolm MD Chest X-Ray 08/25/16 0400 Signed Impressions: Service Date/Time: Thursday, August 25, 2016 06:21 - CONCLUSION: Cardiomegaly. Kit Ding MD Renal Ultrasound 08/25/16 0000 Signed Impressions: Service Date/Time: Thursday, August 25, 2016 08:42 - CONCLUSION: Normal appearance of the kidneys. No evidence of hydronephrosis. Ana Ty MD PE at Discharge GENERAL: Sitting up in chair, no distress, joking around NECK: No JVD. CARDIOVASCULAR: NRRR. Normal S1/S2. No MRG. Left dorsalis pedis pulse present, normal capillary refill, able to move toes and has normal sensation on that foot. RESPIRATORY: CTAB. No crackles or wheezes. MUSCULOSKELETAL: Left hand swelling improved, minimal pain on palpation today. No calf swelling or tenderness. NEUROLOGICAL: Awake and alert. Normal speech. Sensation grossly intact BUE and BLE. Hospital Course 80 yo with PMH of AFib on Eliquis and HTN presented for revision of left knee replacement. He developed hypotension post-operatively and required fluid resuscitation, Levophed, and hernando-synephrine. He developed acute kidney injury as a result of hypotension. His blood pressures improved over the next few days and he was transferred out of the critical care unit. Kidney functioning returned to normal. Cardiology was consulted regarding management of his CHF and blood pressure medications. They recommended resuming Carvedilol 3.125 mg bid. Entresto is being held currently. Eliquis is continued for his Afib, and he continues to take Amiodarone from home. He was discharged to [facility] on 08/27/16. He will work closely with physical therapy. Pt Condition on Discharge: Good Discharge Disposition: Rehab Inpatient Discharge Instructions DIET: Follow Instructions for: Heart Healthy Diet Speech Therapy-Diet Recommends: Regular Activities you can perform: See Additionl Instruction Other Activity Instructions: WB per physical therapy assessment and recommendations Follow up Referrals: Cardiology - 3-5 Days with Kermit Silverio MD Orthopedics - 2 Weeks with Solitario Dunn MD PCP Follow-up - 1 Week New Medications: 3-in-1 Bedside Toilet (3-in-1 Bedside Toilet) 1 Mis Mis 1 EA .ROUTE DIRECTED #1 EA CPM-Continuous Passive Motion Machine (CPM-Continuous Passive Motion Machine) 1 Ea Device 1 EA .ROUTE DIRECTED #1 Ref 0 EA Walker with Front Wheels (Walker with Front Wheels) 1 Mis Mis 1 EA .ROUTE DIRECTED #1 Ref 0 EA Carvedilol (Coreg) 3.125 Mg Tab 3.125 MG PO BID #60 TAB Oxycodone-Acetaminophen (Oxycodone-Acetaminophen) 10-325 mg Tab 1-2 TAB PO Q4H PRN PAIN #60 TAB Continued Medications: Allopurinol (Allopurinol) 300 Mg Tab 300 MG PO DAILY Gout Ref 0 TAB Amiodarone (Amiodarone) 200 Mg Tab 200 MG PO DAILY Regulate Heart Beat #30 Ref 0 TAB Apixaban (Eliquis) 2.5 Mg Tab 2.5 MG PO BID Blood Clot Prevention Ref 0 TAB Ascorbic Acid (Vitamin C) 1,000 Mg Tab 1000 MG PO DAILY Nutritional Supplement Ref 0 TAB B Complex W/ C (Vitamin B Complex-C) 1 Cap Cap 1 TAB PO DAILY Cyanocobalamin (B12) 1,000 Mcg Tab 5000 MCG SL BID Flaxseed (Linseed) (Flaxseed Oil) 1,000 Mg Cap 1000 MG PO DAILY Nutritional Supplement Ref 0 CAP Magnesium (Magnesium) 250 Mg Tab 500 MG PO DAILY Multiple Vitamins W/ Minerals (Centrum Silver) 1 Tab 1 TAB PO DAILY Nutritional Supplement Ref 0 TAB Vitamin E (E-1000) 1,000 Unit Cap 1000 UNITS PO DAILY Discontinued Medications: Carvedilol (Carvedilol) 25 Mg Tab 25 MG PO BID #60 Ref 0 TAB Sacubitril-Valsartan (Entresto) 49-51 Mg Tab 1 TAB PO DAILY Heart Failure #30 Ref 0 TAB Spironolactone (Spironolactone) 25 Mg Tab 25 MG PO DAILY #30 Ref 0 TAB Ricco Flor MD R2 Aug 27, 2016 17:16
[2016-09-04] MEDS ORDERED: WHEEMIS3 (15:57)
[2016-09-06] MEDS ORDERED: OXYC1TAB36 PO (08:15)
[2016-09-06] MEDS ORDERED: ALLO300T2 PO (08:15)
[2016-09-06] MEDS ORDERED: AMIO200T PO (08:15)
[2016-09-06] MEDS ORDERED: CENTTAB PO (08:15)
[2016-09-06] MEDS ORDERED: MAGN400T3 PO (08:15)
[2016-09-06] MEDS ORDERED: CIPR250T52 PO (08:15)
[2016-09-06] MEDS ORDERED: CARV6.25 PO (08:15)
[2016-09-06] MEDS ORDERED: SACU1TAB PO (08:15)
[2016-09-06] MEDS ORDERED: APIX2.5T PO (08:15)
[2016-09-06] MEDS ORDERED: SPIR25TA PO (08:15)
[2016-09-06] MEDS ORDERED: FURO20TA PO (08:15)
[2016-10-23] MEDS ORDERED: PERM5CRE11 TOPICAL (12:11)
[2016-10-23] MEDS ORDERED: NAPR500 PO (12:11)
[2016-10-25] MEDS ORDERED: HYDR-3133 PO (09:06)
== END 2016-08-27 16:13 | DRG 466 ==
LOC: HSDI 08-22 05:42 → N03B 08-22 18:58 → N06B 08-25 10:59
PROVIDERS: ADMIT Surgery; ATTEND Surgery
PROC: 0SPD09Z Removal of Liner from Left Knee Joint, Open Approach (ICD-10-PCS; 2016-08-22)
PROC: 0SPD0JZ Removal of Synthetic Substitute from Left Knee Joint, Open Approach (ICD-10-PCS; 2016-08-22)
PROC: 0SUD09C Supplement Left Knee Joint with Liner, Patellar Surface, Open Approach (ICD-10-PCS; 2016-08-22)
PROC: 00HU33Z Insertion of Infusion Device into Spinal Canal, Percutaneous Approach (ICD-10-PCS; 2016-08-22)
PROC: 03HY32Z Insertion of Monitoring Device into Upper Artery, Percutaneous Approach (ICD-10-PCS; 2016-08-22)
PROC: 0SRD0J9 Replacement of Left Knee Joint with Synthetic Substitute, Cemented, Open Approach (ICD-10-PCS; principal; 2016-08-22 08:06)
DX: T84.093A Other mechanical complication of internal left knee prosthesis, initial encounter (principal); N17.0 Acute kidney failure with tubular necrosis; I47.2 Ventricular tachycardia; I42.9 Cardiomyopathy, unspecified; Z68.42 Body mass index [BMI] 45.0-49.9, adult; I11.0 Hypertensive heart disease with heart failure; I50.9 Heart failure, unspecified; I48.0 Paroxysmal atrial fibrillation; Y83.1 Surgical operation with implant of artificial internal device as the cause of abnormal reaction of the patient, or of later complication, without mention of misadventure at the time of the procedure; I95.81 Postprocedural hypotension; G89.18 Other acute postprocedural pain; M45.9 Ankylosing spondylitis of unspecified sites in spine; E66.9 Obesity, unspecified; E78.5 Hyperlipidemia, unspecified; M10.9 Gout, unspecified; Z79.01 Long term (current) use of anticoagulants; Z95.810 Presence of automatic (implantable) cardiac defibrillator
CPT/HCPCS: 36415; 71010; 73070; 73560; 76775; 80048; 80053; 81001; 82570; 82805; 83735; 84100; 84300; 85014; 85018; 85025; 85027; 85610; 85730; 86850; 86900; 86901; 87015; 87070; 87086; 87102; 87116; 87205; 87206; 87641; 93005; 94150; C1776; J0131; J0690; J1170; J1650; J2250; J2270; J2405; J3010; J3260; J3370; J3475; J7030; J7050; J7120; L1830

== ENCOUNTER → 2016-08-20 | Outpatient (CLI) | payer MEDICARE ==
[~2016-08-20] MED LIST changes: +ALLO300T2 PO; +CARV3.125 PO; +CARV6.25 PO; +CIPR250T52 PO; +CPMMACHINE; +FURO20TA PO; +HYDR-3133 PO; +MAGN400T3 PO; +MISC-163; +NAPR500 PO; +OXYC1TAB36 PO; +PERM5CRE11 TOPICAL; +SACU1TAB PO; +WALKER WHEELS/F1 MIS; +WHEEMIS3; +[UNRECOGNIZED DRUG - CODE] PO
[2016-08-20 08:42] LABS: AUTOMATED NEUTROPHIL # 5.9 TH/MM3 (1.8-7.7); BASOPHIL % 0.4 % (0.0-2.0); EOSINOPHIL # 0.1 TH/MM3 (0-0.4); EOSINOPHIL % 1.7 % (0.0-4.0); HEMATOCRIT 44.1 % (39.0-51.0); HEMO FLAGS DIFF FINAL; LYMPH % 13.1 % (9.0-44.0); MEAN CELL VOLUME 97.6 FL (80.0-100.0); MEAN CORPUSCULAR HEMOGLOBIN 32.8 PG (27.0-34.0); MEAN CORPUSCULAR HGB CONC 33.6 % (32.0-36.0); MONO % 7.4 % (0.0-8.0); NEUT % 77.4 % (16.0-70.0); PLATELET COUNT 156 TH/MM3 (150-450); RED BLOOD COUNT 4.51 MIL/MM3 (4.50-5.90); RED CELL DISTRIBUTION WIDTH 13.4 % (11.6-17.2); WHITE BLOOD COUNT 7.6 TH/MM3 (4.0-11.0)
[2016-08-20 08:49] LABS: APTT (PATIENT) 28.2 SEC (24.3-30.1); INTERNATIONAL NORMALIZED RATIO 1.1 RATIO; PROTHROMBIN TIME - PATIENT 11.8 SEC (9.8-11.6)
[2016-08-20 08:56] LABS: BLOOD, URINE TRACE (NEG); COMMENT (UR) CULT NOT INDICATED; CULTURE IF INDICATED CULT NOT INDICATED; GLUCOSE,URINE NEG (NEG); HYALINE CAST, URINE 4 /lpf (RARE); KETONE, URINE TRACE mg/dL (NEG); MUCUS URINE FEW /lpf (OCC); NITRITE,URINE NEG (NEG); PH, URINE 5.5 (5.0-8.5); URINE COLOR YELLOW (YELLW/STRAW)
[2016-08-20 09:08] LABS: ALKALINE PHOSPHATASE 76 U/L (45-117); ALT (GPT) 41 U/L (12-78); ANION GAP 9 MEQ/L (5-15); AST (GOT) 34 U/L (15-37); BICARBONATE 26.8 MEQ/L (21.0-32.0); BLOOD UREA NITROGEN 26 MG/DL (7-18); CHLORIDE 103 MEQ/L (98-107); GLOMERULAR FILTRATION RATE 49 ML/MIN (>89); GLUCOSE,FASTING 102 MG/DL (74-99); SODIUM (NA) 139 MEQ/L (136-145); TOTAL BILIRUBIN ADULT 0.7 MG/DL (0.2-1.0)
== END ==
LOC: CPRE 07:52
PROVIDERS: ATTEND Surgery
DX: Z01.812 Encounter for preprocedural laboratory examination (principal); Z79.01 Long term (current) use of anticoagulants
CPT/HCPCS: 36415; 80053; 81001; 85025; 85610; 85730

== ENCOUNTER 2016-11-11 06:54 | Day surgery (SDC) | payer MEDICARE ==
[~2016-11-11 06:54] MED LIST changes: -CARV25TA PO; -CARV3.125 PO; -CIPR250T52 PO; -CPMMACHINE; -MISC-163; -SACU1TAB7 PO; -[UNRECOGNIZED DRUG - CODE] PO
[2016-11-11] MEDS ORDERED: CHLORHEXIDINE GLUCONATE 2 % 1 PACK (2 CLOTHS) TOPICAL PRN (07:30)
[2016-11-11] MEDS ORDERED: SODIUM CHLORID 0.9% 500 ML IV PRN (07:30)
[2016-11-11] MEDS ORDERED: LACTATED RINGER'S 1000 ML IV PRN (07:30)
[2016-11-11] MEDS ORDERED: POVIDONE IODINE 5% (ANTISEPSIS KIT) 4 APPLICATIONS EACH NARE PRN (07:30)
[2016-11-11] MEDS ORDERED: INSULIN HUMAN REGULAR 1,000 UNITS/10 ML VIAL SQ PRN (07:30)
[2016-11-11] MEDS ORDERED: METOPROLOL TARTRATE 25 MG TAB PO PRN (07:30)
--- NOTE | 2016-11-12 07:42 | EKG ---
Date Performed: 11/11/2016 Time Performed: 07:37:50 PTAGE: 81 years EKG: Atrial pacing Possible anterior infarct - age undetermined Lateral T wave changes are nonsp ecific Low QRS voltages in precordial leads Abnormal ECG PREVIOUS TRACING : 08/25/2016 01.32 DOCTOR: Doug Galvez Interpretating Date/Time 11/12/2016 07:41:04
== END 2016-11-11 10:00 | disposition home or self-care (01) ==
LOC: HDIC 06:54 → HSDC 06:54
PROVIDERS: ATTEND Internal Medicine Cardiovascular Disease
DX: I48.91 Unspecified atrial fibrillation (principal); Z53.9 Procedure and treatment not carried out, unspecified reason; R94.31 Abnormal electrocardiogram [ECG] [EKG]; I11.0 Hypertensive heart disease with heart failure; I50.22 Chronic systolic (congestive) heart failure; I42.9 Cardiomyopathy, unspecified; Z95.810 Presence of automatic (implantable) cardiac defibrillator
CPT/HCPCS: 93005; G0463; 99211

== ENCOUNTER 2017-01-23 07:45 | Day surgery (SDC) | payer MEDICARE ==
[2017-01-23] MEDS ORDERED: INSULIN HUMAN REGULAR 1,000 UNITS/10 ML VIAL SQ PRN (08:15)
[2017-01-23] MEDS ORDERED: LACTATED RINGER'S 1000 ML IV PRN (08:15)
[2017-01-23] MEDS ORDERED: CHLORHEXIDINE GLUCONATE 2 % 1 PACK (2 CLOTHS) TOPICAL PRN (08:15)
[2017-01-23] MEDS ORDERED: METOPROLOL TARTRATE 25 MG TAB PO PRN (08:15)
[2017-01-23] MEDS ORDERED: POVIDONE IODINE 5% (ANTISEPSIS KIT) 4 APPLICATIONS EACH NARE PRN (08:15)
[2017-01-23] MEDS ORDERED: SODIUM CHLORID 0.9% 500 ML IV PRN (08:15)
[2017-01-23] MEDS ORDERED: SOTA120T PO (08:25)
[2017-01-23] MEDS ORDERED: SUPPORT PO (08:25)
--- NOTE | 2017-01-23 12:42 | EKG ---
Date Performed: 01/23/2017 Time Performed: 09:28:10 PTAGE: 81 years EKG: Atrial pacing. Prolonged QT interval LVH with secondary repolarization abnormality Extensiv e ST-T changes are probably due to ventricular hypertrophy Abnormal ECG PREVIOUS TRACING : 01/23/2017 08.03 DOCTOR: Juan A Love Interpretating Date/Time 01/23/2017 12:40:40
--- NOTE | 2017-01-23 12:43 | EKG ---
Date Performed: 01/23/2017 Time Performed: 08:03:40 PTAGE: 81 years EKG: Sinus arrhythmia Demand pacing. Cannot rule out septal infarct - age undetermined LVH with secondary repolarization abnormality Inferior/lateral ST-T changes are probably due to ventricular hy pertrophy Abnormal ECG PREVIOUS TRACING : 11/11/2016 07.37 DOCTOR: Juan A Love Interpretating Date/Time 01/23/2017 12:41:45
--- NOTE | 2017-01-23 15:45 | MR ---
cc: JANICE NEWMAN M.D. DATE: 01/23/2017 PROCEDURE Synchronized cardioversion. PREOPERATIVE DIAGNOSIS Left atrial tachycardia. BRIEF HISTORY Florentin Okeefe is a 81-year-old man who has had three previous ablations for atrial fibrillation. Unfortunately, he has developed a left atrial tachycardia with 2:1 conduction. I switched his carvedilol to sotalol 120 mg p.o. b.i.d. He has actually felt worse and left atrial tachycardia has continued. For this reason cardioversion was planned to get him back into sinus rhythm with the hopes that sotalol will maintain it. DESCRIPTION OF PROCEDURE After sedation by anesthesia a synchronized 200 joules shock was administered which converted him into a sinus mechanism. He tolerated the procedure well. He will be discharged home later today. He is to continue sotalol 120 mg p.o. b.i.d. Hopefully this will keep him from flipping back into the atrial tachycardia but will have to see how he does. Will also continue Eliquis at a dose of 5 mg p.o. b.i.d. in addition to his other medications. He will be followed up in the office soon. MD BARRETT Fonseca/MAGDA /12:53 PM /3:31 PM
[2017-02-07] MEDS ORDERED: NAPR500 PO (14:08)
== END 2017-01-23 10:27 | disposition home or self-care (01) ==
LOC: HDIC 07:45 → HDOC 07:45
PROVIDERS: ATTEND Internal Medicine Cardiovascular Disease
DX: I47.1 Supraventricular tachycardia (principal)
CPT/HCPCS: 92960; 93005

== ENCOUNTER 2017-03-13 08:35 | Inpatient (IN) | payer MEDICARE ==
[2017-03-13] VITALS (9 sets, daily range): BP systolic 92–135; BP diastolic 60–76; PULSE 63–88; RESP 16–22; TEMP 97.4–98.2; O2SAT 93–99
[~2017-03-13 08:35] MED LIST changes: -AMIO200T PO; -CARV6.25 PO; -CENTTAB PO; -CYAN1TAB24 SL; -E-10CAP PO; -ESSE250T PO; -FLAX10006 PO; -HYDR-3133 PO; -PERM5CRE11 TOPICAL; +SOTA120T PO; +SUPPORT PO; -VITA10007 PO; -WALKER WHEELS/F1 MIS; -WHEEMIS3
[2017-03-13 13:28] LABS: AUTOMATED NEUTROPHIL # 7.3 TH/MM3 (1.8-7.7); BASOPHIL % 0.5 % (0.0-2.0); EOSINOPHIL # 0.2 TH/MM3 (0-0.4); EOSINOPHIL % 1.9 % (0.0-4.0); HEMATOCRIT 44.5 % (39.0-51.0); HEMO FLAGS DIFF FINAL; LYMPH % 10.7 % (9.0-44.0); MEAN CELL VOLUME 96.4 FL (80.0-100.0); MEAN CORPUSCULAR HEMOGLOBIN 33.2 PG (27.0-34.0); MEAN CORPUSCULAR HGB CONC 34.4 % (32.0-36.0); MONO % 7.9 % (0.0-8.0); PLATELET COUNT 204 TH/MM3 (150-450); RED BLOOD COUNT 4.62 MIL/MM3 (4.50-5.90); WHITE BLOOD COUNT 9.2 TH/MM3 (4.0-11.0)
[2017-03-13] MEDS: SODIUM CHLOR 0.9% 1000 ML INJ 1,000 ML IV SCH (13:30)
[2017-03-13 13:33] LABS: APTT (PATIENT) 33.8 SEC (24.3-30.1); INTERNATIONAL NORMALIZED RATIO 1.1 RATIO; PROTHROMBIN TIME - PATIENT 12.6 SEC (9.8-11.6)
[2017-03-13 13:52] LABS: BICARBONATE 27.6 MEQ/L (21.0-32.0); MAGNESIUM 2.2 MG/DL (1.5-2.5); POTASSIUM 4.2 MEQ/L (3.5-5.1)
[2017-03-13] MEDS ORDERED: oxyCODONE/ACETAMINOPHEN 10 MG/325 MG TAB PO PRN (14:00)
[2017-03-13] MEDS ORDERED: PROPOFOL 200 MG/20 ML AMP IV ONE (14:29)
[2017-03-13] MEDS ORDERED: PHENYLEPH/NS 1000 MCG/10 ML SYR IV ONE (14:29)
[2017-03-13] MEDS ORDERED: PILL SPLITTER OTHER PRN (14:30)
--- NOTE | 2017-03-13 19:13 | MA ---
cc: PHILIP PARDO M.D. DATE: 03/13/2017. PROCEDURE PERFORMED: Cardioversion. INDICATIONS FOR THE PROCEDURE: The patient is an 81-year-old gentleman with history of congestive heart failure, atrial fibrillation, previous ablation, recurrent tachyarrhythmia who will undergo cardioversion. The risks, the nature and the benefits of the procedure were clearly stated to him. The risks include pneumothorax, cardiac perforation, stroke and even . The patient understood and agreed to proceed. DESCRIPTION OF THE PROCEDURE IN DETAIL: After written informed consent was obtained, the patient was evaluated by the anesthesiologist. Anterolateral pads were placed. A 200 sync biphasic joule was delivered that converted the patient into sinus rhythm. No incident report. The patient tolerated the procedure. CONCLUSIONS: Successful cardioversion, COMMENTS AND RECOMMENDATIONS: 1. The patient will be kept in the hospital. 2. Tikosyn will be initiated. 3. The patient is aware of the side effects of the medication. Philip Pardo MD /CORRINE /5:04 PM /7:07 PM
[2017-03-13] MEDS: SACUBITRIL/VALSARTAN 24 MG-26 MG TAB PO SCH (21:23)
[2017-03-13] MEDS: DOFETILIDE 250 MCG CAP PO SCH (21:23)
[2017-03-13] MEDS: NAPROXEN 500 MG TAB PO SCH (21:23)
[2017-03-13] MEDS: APIXABAN 2.5 MG TABLET PO SCH (21:23)
--- NOTE | 2017-03-13 22:59 | EKG ---
Date Performed: 03/13/2017 Time Performed: 19:36:56 PTAGE: 81 years EKG: Probable Atrial pacing Prolonged QT interval Possible anterior infarct - age undetermined I nferior/lateral T wave changes may be due to myocardial ischemia Abnormal ECG PREVIOUS TRACING : 03/13/2017 14.41 Compared to prior tracing no significant change DOCTOR: Carlton Lua Interpretating Date/Time 03/13/2017 22:58:21
--- NOTE | 2017-03-13 23:20 | EKG ---
Date Performed: 03/13/2017 Time Performed: 14:41:15 PTAGE: 81 years EKG: ELECTRONIC ATRIAL PACEMAKER MODERATE T-WAVE ABNORMALITY, CONSIDER ANTEROLATERAL ISCHEMIA AB NORMAL ECG PREVIOUS TRACING : 01/23/2017 09.28 Compared to the previous tracing ST/T wave changes are less prominent DOCTOR: Carlton Lua Interpretating Date/Time 03/13/2017 23:19:43
[2017-03-14] VITALS (25 sets, daily range): BP systolic 95–124; BP diastolic 64–84; PULSE 62–80; RESP 16–18; TEMP 97.5–98.2; O2SAT 93–95
--- NOTE | 2017-03-14 08:12 | PD.CARD.PN ---
Subjective Subjective Remarks Feels okay. Objective Medications Current Medications Medications (Trade) Dose Ordered Sig/Kenny Route Start Time Stop Time Status Last Admin Sodium Chloride 1,000 ml @ 30 mls/hr Q24H IV 03/13/17 13:30 03/13/17 13:30 (Zyloprim) 300 mg DAILY PO 03/14/17 09:00 (Eliquis) 2.5 mg BID PO 03/13/17 21:00 03/13/17 21:23 (Allbee C) 1 tab DAILY PO 03/14/17 09:00 (Lasix) 10 mg DAILY PO 03/14/17 09:00 (Mag-Ox) 400 mg DAILY@12 PO 03/14/17 12:00 (Naprosyn) 500 mg BID PO 03/13/17 21:00 03/13/17 21:23 (Percocet 10-325 Mg) 1 tab Q4H PRN PO 03/13/17 14:00 (Entresto 24-26 Mg) 1 tab BID PO 03/13/17 21:00 03/13/17 21:23 (Aldactone) 12.5 mg DAILY PO 03/14/17 09:00 (Pill Splitter) 1 ea UNSCH PRN OTHER 03/13/17 14:30 (Tikosyn) 250 mcg BID PO 03/13/17 21:00 03/13/17 21:23 Vital Signs / I&O Vital Signs Date Time Temp Pulse Resp B/P (MAP) Pulse Ox O2 Delivery O2 Flow Rate FiO2 03/14/17 06:00 73 03/14/17 05:03 70 03/14/17 04:00 76 03/14/17 03:00 97.8 79 18 95/67 (76) 94 03/14/17 03:00 66 03/14/17 02:00 68 03/14/17 01:00 64 03/14/17 00:00 68 03/13/17 23:00 68 03/13/17 23:00 98.2 66 18 92/60 (71) 94 03/13/17 22:31 16 03/13/17 22:00 64 03/13/17 21:00 64 03/13/17 20:00 70 03/13/17 19:00 68 03/13/17 19:00 98.0 68 16 111/76 (88) 99 03/13/17 18:11 63 03/13/17 17:00 88 03/13/17 16:05 97.4 66 16 135/74 (94) 94 03/13/17 16:05 77 03/13/17 11:40 72 03/13/17 11:40 98.2 72 22 111/71 (84) 93 I/O 03/13/17 03/13/17 03/13/17 03/14/17 03/14/17 03/14/17 07:00 15:00 23:00 07:00 15:00 23:00 Intake Total 360 ml Output Total 400 ml Balance -40 ml Intake Oral 360 ml Output Urine Total 400 ml Physical Exam GENERAL: Well-nourished, well-developed patient. SKIN: Warm and dry. HEAD: Normocephalic. EYES: No scleral icterus. No injection or drainage. NECK: Supple, trachea midline. No JVD or lymphadenopathy. CARDIOVASCULAR: Regular rate and rhythm without murmurs, gallops, or rubs. RESPIRATORY: Breath sounds equal bilaterally. No accessory muscle use. GASTROINTESTINAL: Abdomen soft, non-tender, nondistended. EXTREMITIES: No cyanosis, or edema. NEUROLOGICAL: Awake, alert, and oriented x 3. Non-focal. Laboratory Laboratory Tests Test 03/13/17 12:45 03/13/17 13:22 White Blood Count 9.2 TH/MM3 Red Blood Count 4.62 MIL/MM3 Hemoglobin 15.3 GM/DL Hematocrit 44.5 % Mean Corpuscular Volume 96.4 FL Mean Corpuscular Hemoglobin 33.2 PG Mean Corpuscular Hemoglobin Concent 34.4 % Red Cell Distribution Width 15.0 % Platelet Count 204 TH/MM3 Mean Platelet Volume 8.2 FL Neutrophils (%) (Auto) 79.0 % Lymphocytes (%) (Auto) 10.7 % Monocytes (%) (Auto) 7.9 % Eosinophils (%) (Auto) 1.9 % Basophils (%) (Auto) 0.5 % Neutrophils # (Auto) 7.3 TH/MM3 Lymphocytes # (Auto) 1.0 TH/MM3 Monocytes # (Auto) 0.7 TH/MM3 Eosinophils # (Auto) 0.2 TH/MM3 Basophils # (Auto) 0.0 TH/MM3 CBC Comment DIFF FINAL Differential Comment Blood Urea Nitrogen 30 MG/DL Creatinine 1.69 MG/DL Random Glucose 97 MG/DL Calcium Level 9.7 MG/DL Phosphorus Level 3.0 MG/DL Magnesium Level 2.2 MG/DL Sodium Level 141 MEQ/L Potassium Level 4.2 MEQ/L Chloride Level 105 MEQ/L Carbon Dioxide Level 27.6 MEQ/L Anion Gap 8 MEQ/L Estimat Glomerular Filtration Rate 39 ML/MIN Prothrombin Time 12.6 SEC Prothromb Time International Ratio 1.1 RATIO Activated Partial Thromboplast Time 33.8 SEC Assessment and Plan Problem List: (1) Atrial fibrillation ICD Codes: I48.91 - Atrial fibrillation Status: Chronic Plan: Atrial pacing status post cardioversion and initiation of dofetilide. Magnesium, potassium and phosphorus levels within normal limits. QT interval [address] cortez. Further dosing adjustments per his review and subsequent EKGs. Continue current therapy per my discussion with Dr. cortez. Problem Qualifiers (1) Atrial fibrillation: Qualified Codes: I48.91 - Unspecified atrial fibrillation Jazmine Ford Mar 14, 2017 08:12
[2017-03-14] MEDS: NAPROXEN 500 MG TAB PO SCH ×2 (09:25→21:24)
[2017-03-14] MEDS: SACUBITRIL/VALSARTAN 24 MG-26 MG TAB PO SCH ×2 (09:25→21:24)
[2017-03-14] MEDS: FUROSEMIDE 20 MG TAB PO SCH (09:26)
[2017-03-14] MEDS: SPIRONOLACTONE 25 MG TAB PO SCH (09:26)
[2017-03-14] MEDS: VITAMIN B COMPLEX/VIT C TAB PO SCH (09:26)
[2017-03-14] MEDS: ALLOPURINOL 300 MG TAB PO SCH (09:26)
[2017-03-14] MEDS: DOFETILIDE 250 MCG CAP PO SCH ×2 (09:27→21:24)
[2017-03-14] MEDS: APIXABAN 2.5 MG TABLET PO SCH ×2 (09:27→21:25)
[2017-03-14] MEDS: SODIUM CHLOR 0.9% 1000 ML INJ 1,000 ML IV SCH (11:35)
[2017-03-14] MEDS: MAGNESIUM OXIDE 400 MG TAB PO SCH (11:52)
--- NOTE | 2017-03-14 19:14 | EKG ---
Date Performed: 03/14/2017 Time Performed: 07:36:28 PTAGE: 81 years EKG: Probable atrial pacing Possible inferior infarct - age undetermined Ant/septal and lateral T wave changes may be due to myocardial ischemia Abnormal ECG PREVIOUS TRACING : 03/13/2017 19.36 Compared to prior tracing no significant change DOCTOR: Carlton Lua Interpretating Date/Time 03/14/2017 19:12:49
[2017-03-15] VITALS (13 sets, daily range): BP systolic 95–104; BP diastolic 60–68; PULSE 62–77; RESP 16; TEMP 97.8–98.1; O2SAT 94–97
[2017-03-15] MEDS: VITAMIN B COMPLEX/VIT C TAB PO SCH (09:00)
[2017-03-15] MEDS: NAPROXEN 500 MG TAB PO SCH (09:00)
[2017-03-15] MEDS: ALLOPURINOL 300 MG TAB PO SCH (09:00)
[2017-03-15] MEDS: APIXABAN 2.5 MG TABLET PO SCH (09:00)
[2017-03-15] MEDS: DOFETILIDE 250 MCG CAP PO SCH (09:00)
[2017-03-15] MEDS: SPIRONOLACTONE 25 MG TAB PO SCH (09:00)
[2017-03-15] MEDS: FUROSEMIDE 20 MG TAB PO SCH (09:00)
[2017-03-15] MEDS: SACUBITRIL/VALSARTAN 24 MG-26 MG TAB PO SCH (09:00)
[2017-03-15] MEDS: SODIUM CHLOR 0.9% 1000 ML INJ 1,000 ML IV SCH (10:43)
[2017-03-15] MEDS: MAGNESIUM OXIDE 400 MG TAB PO SCH (10:43)
[2017-03-15] MEDS ORDERED: DOFE250 PO (13:15)
--- NOTE | 2017-03-15 13:35 | MH ---
cc: PHILIP PARDO M.D. DATE OF ADMISSION: 03/13/2017 ADMITTING DIAGNOSIS: Progress note and discharge summary: HISTORY: Mr. Okeefe is a 81-year-old gentleman with atrial fibrillation, previous ablation recurrent episode tachyarrhythmia was admitted on 03/13/2017 for Tikosyn administration. Cardioversion was performed. Tikosyn was initiated. QT was monitored. Current QT is around 440, 4 milliseconds., fully oriented. VITAL SIGNS Blood pressure 104/68, pulse 72, respiratory 18 Today. CARDIOVASCULAR SYSTEM: Cardiovascular: S1-S2 regular. ABDOMEN: Soft. No mass. No wheeze. EXTREMITIES: No edema. RADIOLOGIC: Electrocardiogram showed a sensing, V sensing. QT around 440 milliseconds. LABORATORY DATA Hemoglobin 15.3, white blood cell 9.2, creatinine is 1.69. ASSESSMENT/RECOMMENDATIONS: Mr. Okeefe is stable. Condition significantly improved. He refers no shortness of breath. His QT is adequate 440 milliseconds. He is on allopurinol upon discharge home 200 mg a day. Eliquis 2.5 mg twice a day. Tikosyn 250 mcg twice a day Lasix, 10 mg a day, magnesium, naproxen, entresol 24/26 twice per day. Aldactone 12.5 mg a day and vitamins. Heart healthy diet recommended. The gentleman going to be discharged home today. He was advised if he missed two doses of Tikosyn back to back not to reinitiate the medication and call my office. Also any arrhythmia to call my office or go to the emergency room. As mentioned before he is going to be discharged home. I will follow him in 2 weeks, in any case he will be done next week at my office. MD ANGUS Andre/shelley /1:10 PM /1:22 PM
--- NOTE | 2017-03-16 20:59 | EKG ---
Date Performed: 03/15/2017 Time Performed: 07:01:30 PTAGE: 81 years EKG: Atrial pacing. Possible inferior infarct - age undetermined Possible anterior infarct - age undetermined Lateral T wave changes may be due to myocardial ischemia Low QRS voltages in precordial leads Abnormal ECG PREVIOUS TRACING : 03/14/2017 19.22 DOCTOR: Doug Galvez Interpretating Date/Time 03/16/2017 20:52:40
--- NOTE | 2017-03-16 21:08 | EKG ---
Date Performed: 03/14/2017 Time Performed: 19:22:40 PTAGE: 81 years EKG: Atrial pacing Possible inferior infarct - age undetermined Possible anterior infarct - age undetermined Lateral T wave changes may be due to myocardial ischemia Abnormal ECG PREVIOUS TRACING : 03/14/2017 07.36 DOCTOR: Doug Galvez Interpretating Date/Time 03/16/2017 20:59:11
--- NOTE | 2017-03-16 21:16 | EKG ---
Date Performed: 03/14/2017 Time Performed: 10:38:36 PTAGE: 81 years EKG: Atrial pacing Possible inferior infarct - age undetermined Possible anterior infarct - age undetermined Lateral T wave changes may be due to myocardial ischemia Low QRS voltages in precordial leads Abnormal ECG NO PREVIOUS TRACING DOCTOR: Doug Galvez Interpretating Date/Time 03/16/2017 21:04:36
== END 2017-03-15 13:50 | disposition home or self-care (01) | DRG 310 ==
LOC: HDIC 10:06 → OBSVTOIN 10:55 → HIME 11:25 → HCPC 16:03
PROVIDERS: ADMIT Internal Medicine Interventional Cardiology; ATTEND Internal Medicine Interventional Cardiology
PROC: 5A2204Z Restoration of Cardiac Rhythm, Single (ICD-10-PCS; principal; 2017-03-13)
DX: I48.91 Unspecified atrial fibrillation (principal); I50.9 Heart failure, unspecified
CPT/HCPCS: 80048; 83735; 84100; 85025; 85610; 85730; 93005; J2370; J7030

== ENCOUNTER 2017-04-17 13:32 | Inpatient (IN) | payer MEDICARE ==
[~2017-04-17] VITALS: Ht 167.6 cm; Wt 119.1 kg
[~2017-04-17 13:32] MED LIST changes: +DOFE250 PO; -SOTA120T PO
[2017-04-17 13:40] VITALS: BP 127/90; PULSE 90; RESP 18; TEMP 97.6; O2SAT 96
[2017-04-17] MEDS ORDERED: LORazepam 1 MG TAB SL SCH (14:00)
[2017-04-17] MEDS ORDERED: CHLORHEXIDINE GLUCONATE 2 % 1 PACK (2 CLOTHS) TOPICAL PRN (14:00)
[2017-04-17] MEDS ORDERED: METOPROLOL TARTRATE 25 MG TAB PO PRN (14:00)
[2017-04-17] MEDS ORDERED: LACTATED RINGER'S 1000 ML IV PRN (14:00)
[2017-04-17] MEDS ORDERED: POVIDONE IODINE 5% (ANTISEPSIS KIT) 4 APPLICATIONS EACH NARE SCH (14:00)
[2017-04-17] MEDS ORDERED: NS 1000 ML IV SCH (14:00)
[2017-04-17] MEDS ORDERED: SODIUM CHLORID 0.9% 500 ML IV PRN (14:00)
[2017-04-17] MEDS ORDERED: POVIDONE IODINE 5% (ANTISEPSIS KIT) 4 APPLICATIONS EACH NARE PRN (14:00)
[2017-04-17] MEDS ORDERED: VANCOMYCIN 1000 MG/NS 250 ML IV SCH ×2 (14:00)
[2017-04-17] MEDS ORDERED: CHLORHEXIDINE GLUCONATE 2 % 1 PACK (2 CLOTHS) TOPICAL SCH (14:00)
[2017-04-17] MEDS ORDERED: MUPIROCIN 2% OINT 1 APPLIC/GM SYR NASAL SCH (14:00)
[2017-04-17] MEDS ORDERED: ceFAZolin 2 GM PREMIX 50 ML IV SCH (14:00)
[2017-04-17] MEDS ORDERED: SACU1TAB7 PO (14:14)
[2017-04-17] MEDS ORDERED: FURO40TA PO (14:14)
[2017-04-17 14:39] LABS: AUTOMATED NEUTROPHIL # 5.4 TH/MM3 (1.8-7.7); BASOPHIL % 0.6 % (0.0-2.0); EOSINOPHIL # 0.2 TH/MM3 (0-0.4); EOSINOPHIL % 2.2 % (0.0-4.0); HEMATOCRIT 46.7 % (39.0-51.0); HEMO FLAGS DIFF FINAL; LYMPH % 14.5 % (9.0-44.0); LYMPHOCYTE # 1.1 TH/MM3 (1.0-4.8); MEAN CELL VOLUME 97.3 FL (80.0-100.0); MEAN CORPUSCULAR HEMOGLOBIN 32.6 PG (27.0-34.0); MEAN CORPUSCULAR HGB CONC 33.5 % (32.0-36.0); MONO % 9.4 % (0.0-8.0); NEUT % 73.3 % (16.0-70.0); PLATELET COUNT 168 TH/MM3 (150-450); WHITE BLOOD COUNT 7.4 TH/MM3 (4.0-11.0)
[2017-04-17 14:48] LABS: APTT (PATIENT) 29.4 SEC (24.3-30.1); INTERNATIONAL NORMALIZED RATIO 1.1 RATIO; PROTHROMBIN TIME - PATIENT 11.2 SEC (9.8-11.6)
[2017-04-17 14:51] LABS: BICARBONATE 26.3 MEQ/L (21.0-32.0); POTASSIUM 3.7 MEQ/L (3.5-5.1)
[2017-04-17] MEDS ORDERED: ISOPROTERENOL HCL 1 MG/5 ML AMP ONE (18:02)
[2017-04-17] MEDS ORDERED: HEPARIN-NS/PF INJ 1,000 ML ONE (18:18)
[2017-04-17] MEDS ORDERED: VANCOMYCIN 500 MG VIAL ONE (18:19)
[2017-04-17] MEDS ORDERED: LIDOCAINE HCL 2% 50 ML VIAL ONE (18:19)
--- NOTE | 2017-04-17 18:42 | CATHPROC ---
[email or web address] (fka [employer]) HIS Report Study Information Study Number Admission Scheduled Start Study Start [id number] Apr 17 2017 1:32PM 04/17/2017 Apr 17 2017 2:34PM [place] Service Cardiac Pacer/ICD Admit Source Facility Department Other [facility] [place] Physician and Clinical Staff Initial Doug Saunders Advisory Internship Pam Bhat,BIT SHAVER Other Anesthesia, EASEMENT WORKER Recorder Mayra Ramos,BSRN Recorder Carmina Aguirre,CHUYITA Scrub Selena Hernandez,RT(R) TECH2 Procedures Performed Procedure Ablation Procedure Equipment Time Machine Cementer And Folder Description Size Mfg Part Number Used/Scraped BIOSENSE MILLS CATHETER, CELSIUS DS, 8MM, F [id number] 17:32 FR 7 Used INC. TYPE QUAD *[id number] 15:12 Eyepic INDUSTRIES PACK, CCL CUSTOM * Used *[id number] 15:12 Eyepic PACER ABREU, LIMB * 2530 *[id number] Used [id number] 15:12 JACKSON Jongla BLANKET,WARM AIR CCL * Used *[id number] 17:52 [employer] MEDICAL CATHETER, JSN, QUAD FR 5 Used *[id number] 17:52 [employer] MEDICAL CATHETER, JSN, QUAD FR 5 Used *[id number] 17:52 [employer] MEDICAL CATHETER, JSN, QUAD FR 5 Used *[id number] 15:12 [employer] MEDICAL ELECTRODE KIT, KIMMY X SURFACE * Used *[id number] 199926 15:13 [employer] MED[employer] SHEATH, EPS, FR5 FAST CATH FR 5 Used *[id number] [id number] 15:13 [employer] MEDICAL SHEATH, EPS, FR5 FAST CATH FR 5 Used *[id number] 796092 15:13 [employer] MEDICAL SHEATH, EPS, FR6 FAST CATH FR 6 Used *[id number] 15:13 [facility] MEDICAL SHEATH, EPS, FR8 FAST CATH FR 8 Used *[id number] [facility] PAD, ELECTROSURGICAL 15:12 * [id number] *[id number] Used SURGICAL GROUNDING (BLUE) History: Allergies Allergy Reaction No Known Allergies amiodarone Itching History: Risk Factors Hypertension Previous [place] Previous Heart Failure Yes Yes Yes Labs Hgb (g/dl) Hct (%) RBC (MIL/MM3) WBC (l/cumm) Platelets (thousands) 11.60-17.00 35.00-51.00 4.00-5.90 4.00-11.00 150.00-450.00 15.6 46.7 4.8 7.4 168 Glucose (mg/dl) BUN (mg/dl) Creatinine (mg/dl) BUN:Creatinine (1:x) 74.00-106.00 7.00-18.00 0.50-1.30 10.00-20.00 99 20 1.3 15.4 Na (meq/l) K (meq/l) Cl (meq/l) CO2 (mmol/L) Ca (mg/dl) 136.00-145.00 3.50-5.10 98.00-107.00 21.00-32.00 8.50-10.10 140 3.7 105 26.3 9.3 PT (sec) PTT (sec) INR (PTT:PT) 9.80-11.60 24.30-30.10 0.90-1.10 11.2 29.4 1.1 Medication Medication Total Dose (Bolus/Oral) Medication Total Dosage/Unit 1% XYLOCAINE 20 mL Medications (Bolus/Oral) Medication Time Given Dosage/Unit Administered By Reason 1% XYLOCAINE 04/17/2017 5:49:56 PM 20 mL Doug Galvez As per physicians v erbal order 20 mL 1% XYLOCAINE given in lab by Doug Galvez in Right Groin via Subcutaneous. Ordered by Dewey Galvez. Reason: As per physicians verbal order. Medication (Drip) Medication Time Given Dosage/Unit Concentration/Unit Diluent (ml) Solution ANCEF 04/17/2017 5:47:15 PM 2 g 2 g ANCEF given in lab by Anesthesia, EASEMENT WORKER in Right Antecubital via Peripheral IV. Ordered by Doug Galvez. Reason: As per physicians verbal order. ISUPREL 04/17/2017 6:04:08 PM 10 mcg/min 1 mg 250 NaCl .9 10 mcg/min ISUPREL given in lab by Anesthesia, EASEMENT WORKER via Peripheral IV. Pump/Drip Flow = 150 ml/hr usi ng NaCl .9 with a concentration of 1 mg in 250 ml. Ordered by Doug Galvez. VANCOMYCIN DRIP 04/17/2017 5:47:00 PM 1 g 1 g VANCOMYCIN DRIP given in lab by Anesthesia, EASEMENT WORKER in Right Antecubital via Peripheral IV. Ordered by Doug Galvez. Reason: As per physicians verbal order. Initial Case Assessment Cardiovascular HR NIBP Chest Pain 76 128/86 0 Edema Present Skin color Skin None Normal Warm Dry Neurological State Oriented to time-place- Alert Moves all extremities person Respiration - General Respiration Rate SpO2 (%) (B/min) 18 95 Chronological Log Time Study Chronological Log 16:41:36 Patient arrived via Bed. 16:41:39 Patient Name, D.O.B, / Armband Verified By R.N. 16:41:41 Consent signed by the physician and the patient and verified by the [facility] staff. 16:42:24 History and physical on the chart. 16:42:25 Patient has been NPO for More than 6Hrs. 16:42:28 Pre-op and post- op instructions given; patient acknowledges understanding of instructions. 16:42:39 Skin Breakdown- 16:43:22 Verbal Stimulation=2 Physical Stimulation=2 Airway=2 Respiration=2 TOTAL=8. (0=absent, 1=li mited, 2=present) 16:45:59 Patient Warmer Placed on the Table. 16:47:03 Disposable Defibrillator Pads Placed On Patient. 16:48:10 Alberto Prominences Protected 16:49:37 2% CHLORHEXIDINE GLUCONATE WASH AND NASAL SWIPE DONE PRIOR TO PROCEDURE. 16:51:46 A # 20 IV was noted in the Antecubital (left). Grade = 0 0.9% nacl at kvo. 16:51:48 A # 20 IV was noted in the Antecubital (right). Grade = 0 0.9% nacl at kvo. Assessment: Initial Case, HR=76 BPM, OFNG=234/86 mmhg, Chest Pain=0, Edema=None, Color=Normal, Skin = Warm, Dry 16:55:35 Neurological: State=Alert, Ox3, HEADLEY Respiration: Resp=18 B/min, SpO2=95 % 16:58:03 Table restraints applied according to hospital policy 16:58:08 Right groin prepped with 2% chlorhexidine, and draped after a 3 min. waiting time. 16:58:12 Left groin prepped with 2% chlorhexidine, and draped after a 3 min. waiting time. 16:58:32 2% CHLORHEXIDINE GLUCONATE WASH AND NASAL SWIPE DONE PRIOR TO PROCEDURE. 17:08:07 Defibrillator disabled by Maura Hoffman per Dr. Galvez's orders. 17:12:56 Reference ECG taken 17:14:10 Anesthesia at bedside. Assumes care of patient. Selene ANTUNEZ 17:28:41 MD notified ready. 17:29:00 MD responded 17:37:49 MD arrived. 17:43:03 Patient intubated by anesthesia. 17:47:00 Immediate Presedation assesment performed by physician. Time Out. Correct patient, procedure, procedure equipment, site and side verified with physicia n present. Time 17:47:00 concurred by MD, individual staff and EASEMENT WORKER. Time Out #2 - Consents verified, patient in correct position, all results are labled and displa yed, safety precautions 17:47:00 taken, antibiotics administered. Time out concurred by MD, individual staff and EASEMENT WORKER in procedu re 17:47:00 Case Start 1 g VANCOMYCIN DRIP given in lab by Anesthesia, EASEMENT WORKER in Right Antecubital via Peripheral IV. Or dered by Lenny 17:47:00 Doug. Reason: As per physicians verbal order. 2 g ANCEF given in lab by Anesthesia, EASEMENT WORKER in Right Antecubital via Peripheral IV. Ordered by Doug Sexton. Reason: 17:47:15 As per physicians verbal order. 20 mL 1% XYLOCAINE given in lab by Doug Galvez in Right Groin via Subcutaneous. Ordered by Doug Silverman. 17:49:56 Reason: As per physicians verbal order. 17:50:17 Vascular access was obtained in the Fem Vein (right). 17:50:26 Vascular access was obtained in the Fem Vein (right). 17:50:27 Vascular access was obtained in the Fem Vein (right). 17:50:28 Vascular access was obtained in the Fem Vein (right). 17:50:45 A SHEATH, EPS, FR5 FAST CATH FR 5 was advanced into the Fem Vein (right) using the Percutan eous technique. 17:50:55 A SHEATH, EPS, FR5 FAST CATH FR 5 was advanced into the Fem Vein (right) using the Percutan eous technique. 17:51:11 A SHEATH, EPS, FR6 FAST CATH FR 6 was advanced into the Fem Vein (right) using the Percutan eous technique. 17:51:19 A SHEATH, EPS, FR8 FAST CATH FR 8 was advanced into the Fem Vein (right) using the Percutan eous technique. A CATHETER, JSN, QUAD FR 5 was advanced vis Fem Vein (right) and placed in the HIS. Placement w as visually 17:52:27 confirmed under fluoroscopy. A CATHETER, JSN, QUAD FR 5 was advanced vis Fem Vein (right) and placed in the CS. Placement wa s visually 17:52:38 confirmed under fluoroscopy. A CATHETER, JSN, QUAD FR 5 was advanced vis Fem Vein (right) and placed in the RVA. Placement w as visually 17:52:55 confirmed under fluoroscopy. A CATHETER, BARBARAUS DS, 8MM, F TYPE QUAD FR 7 was advanced vis Fem Vein (right) and placed in t he AV NODE. 17:55:00 Placement was visually confirmed under fluoroscopy. 17:56:57 Ablation in progress. 18:03:47 Node Ablated 10 mcg/min ISUPREL given in lab by Anesthesia, EASEMENT WORKER via Peripheral IV. Pump/Drip Flow = 150 ml/ hr using NaCl .9 18:04:08 with a concentration of 1 mg in 250 ml. Ordered by Doug Galvez. 18:13:11 d/c isuprel 18:15:10 Catheter(s) removed without difficulty cs catheter left in place 18:15:25 Sheath(s) left in place, will be removed post procedure 18:15:55 Ablation procedure performed: AVN. 18:15:59 EP Procedure was performed. AV NODE ABLATION End Study - Contrast Media Used In Study Contrast Total Opened (mL) Total Used (mL) Total Wasted (mL) Unspecified 0 0 0 End Study - Maximum Contrast Load Max Contrast Load (mL) 458.4 End Study - Radiation Exposure Fluoro Time (minutes) 2.5 End Study - Patient Disposition Complications Transferred To Interventional Outcome No [place] Holding successful
[2017-04-17] MEDS ORDERED: SODIUM CHLOR 0.9% 250 ML INJ 250 ML IV PRN (20:00)
[2017-04-17] MEDS ORDERED: ONDANSETRON HCL 4 MG/2 ML VIAL IV PUSH PRN (20:00)
[2017-04-17] MEDS ORDERED: BACITRACIN OINT 0.9 GM PKT TOP ONE (20:00)
[2017-04-17] MEDS ORDERED: oxyCODONE/ACETAMINOPHEN 5 MG/325 MG TAB PO PRN ×2 (20:00)
[2017-04-17] MEDS ORDERED: LIDOCAINE HCL 1% 50 ML VIAL INFIL PRN (20:00)
[2017-04-17] MEDS ORDERED: ATROPINE SULFATE 1 MG/ML VIAL IV PUSH PRN (20:00)
[2017-04-17] MEDS ORDERED: SODIUM CHLORIDE 0.9% FLUSH 10 ML FLUSH IV FLUSH PRN (20:00)
[2017-04-17] MEDS ORDERED: LORazepam 2 MG/ML VIAL IV PUSH PRN (20:00)
--- NOTE | 2017-04-17 20:06 | CATHPROC ---
[facility] HIS Report Study Information Study Number Admission Scheduled Start Study Start [id number] Apr 17 2017 1:32PM 04/17/2017 Apr 17 2017 6:44PM [place] Service Electrophysiology Study Admit Source Facility Department Other [facility] - Master Control Technician Physician and Clinical Staff Initial Doug Saunders Incident Handler Pam Bhat RCIS Other Anesthesia, LAUNDRY EQUIPMENT OPERATOR Recorder Carmina Aguirre,CHUYITA Scrub Selena Hernandez,RT(R) TECH2 Procedures Performed Procedure Location (Site) Vessel Name Lead Insertion Venogram Subclav. Vein (Lft Subclavian Vein Wire insertion Subclav. Vein (Lft Subclavian Vein Equipment Time Seed Buyer Description Size Mfg Part Number Used/Scraped [id number] 19:07 [facility] WIRE, ASAStayNTouch PROWATER 180CM 180CM Used *[id number] 19:19 BIOTRONIK DEFIBRILLATOR, ILIVIA 7 HF-T QP [id number] Used DERMABOND, ADHESIVE SKIN [id number] 18:47 CORDIS/PACER * Used GLUE MINI *[id number] 18:47 MEDLINE INDUSTRIES SUTURE, STRIP PLUS 1/2" * Used *[id number] 18:47 MEDLINE PACER ABREU, LIMB * 2530 *[id number] Used [id number] 18:47 MEDLINE PACER PACK, PACER CUSTOM * Used *[id number] 19:12 Mediasmart PACER SAFE SHEATH, FR9, 13CM FR 9 [id number] Used 18:47 Needle Sponge Count 2 2 Used 18:47 Needle Sponge Count 2 22 Used 18:47 Needle Sponge Count 20 200 Used 19:06 NYCOMED OMNIPAQUE, 350 MG, 50ML 50ML [id number] Used SUTURE, 0 ETHIBOND [CT1] (CX21D), 8pk SUTURE, 2-0 VICRYL [CT1] ([id number]) SUTURE, 2-0 VICRYL [CT1] ([id number]) [id number] 18:47 [employer] BLANKET,WARM AIR CCL * Used *[id number] 18:46 [facility] [employer] MEDICAL LIVEWIRE, QUAD, MED SWEEP FR 6 [id number] Used [facility] PAD, ELECTROSURGICAL 18:47 * [id number] *[id number] Used SURGICAL GROUNDING ORANGE LEAD, ATTAIN PERFORMA 19:10 VITATRON MEDTRONIC 88CM 4398-88CM Used STRAIGHT, 88CM 18:47 VITATRON MEDTRONIC PLASMABLADE, PEAD 3.0S * [id number] Used [id number] 18:47 [employer] [facility] / * Used *[id number] Equipment Model, Serial, Lot Number and Expiration Data Description Model Number Serial Number Lot Number Expiration Date DEFIBRILLATOR, FRIDAVIA 7 HF-T QP [id number] 05-18-2018 LEAD, ATTAIN PERFORMA 4398-88CM [id number] 11-08-2018 STRAIGHT, 88CM History: Allergies Allergy Reaction No Known Allergies amiodarone Itching History: Risk Factors Hypertension Previous [place] Previous Heart Failure Yes Yes Yes Medication Medication Total Dose (Bolus/Oral) Medication Total Dosage/Unit 2% XYLOCAINE 50 mL Medications (Bolus/Oral) Medication Time Given Dosage/Unit Administered By Reason 2% XYLOCAINE 04/17/2017 6:56:27 PM 50 mL Doug Galvez 50 mL 2% XYLOCAINE given in lab by Doug Galvez in Left shoulder via Subcutaneous. LEFT UPPER CHEST Medication (Drip) Medication Time Given Dosage/Unit Concentration/Unit Diluent (ml) Solution ANCEF 04/17/2017 5:48:00 PM 2 g 2 g ANCEF given in lab by Anesthesia, LAUNDRY EQUIPMENT OPERATOR in Left Arm via Peripheral IV. Ordered by Doug Galvez. VANCOMYCIN DRIP 04/17/2017 5:48:00 PM 1 g 1 g VANCOMYCIN DRIP given in lab by Anesthesia, LAUNDRY EQUIPMENT OPERATOR in Left Arm via Peripheral IV. Ordered by Doug Galvez. Chronological Log Time Study Chronological Log 17:48:00 2 g ANCEF given in lab by Anesthesia, LAUNDRY EQUIPMENT OPERATOR in Left Arm via Peripheral IV. Ordered by Doug Galvez. 17:48:00 1 g VANCOMYCIN DRIP given in lab by Anesthesia, LAUNDRY EQUIPMENT OPERATOR in Left Arm via Peripheral IV. Ordere d by Doug Galvez. 18:16:10 NOTE: This patient is undergoing an additional procedure while still in the Cardiac Cath L ab. 18:16:20 Initial procedure has been completed. Beginning additional procedure. 18:30:35 Left Upper Chest Prepped Times Two. 18:44:31 Anesthesia at bedside. Assumes care of patient. SEE RECORDS FOR ALL MEDS AND VITALS DURING PROCEDURE 18:44:59 Bovie ground pad applied to: RIGHT THIGH 18:45:07 2% CHLORHEXIDINE GLUCONATE WASH AND NASAL SWIPE DONE PRIOR TO PROCEDURE. First Sponge And Instrument Count Done by Selena Hernandez, RT(R) TECH2. 18:45:12 Hypo's: 2, Sponges: 20, Bovie/scratch: 2 Sutures: 10, Blades: 1, Instruments: 26, Syveck Patches: ~SYVECK PATCH~ VERIFIED BY PAM Tolbert 18:47:20 paged 18:48:06 MD responded 18:50:58 Reference ECG taken Time Out. Correct patient, procedure, procedure equipment, site and side verified with physici an present. Time 18:55:36 concurred by MD, individual staff and LAUNDRY EQUIPMENT OPERATOR. Time Out #2 - Consents verified, patient in correct position, all results are labled and displ ayed, safety precautions 18:55:40 taken, antibiotics administered. Time out concurred by MD, individual staff and LAUNDRY EQUIPMENT OPERATOR in proced ure 18:55:58 Case Start 18:56:27 50 mL 2% XYLOCAINE given in lab by Doug Galvez in Left shoulder via Subcutaneous. LEFT U PPER CHEST 18:57:30 Surgical Incision Made. 18:57:59 A pocket was created at the L Upper Chest. 18:59:00 A device was explanted. A LIVEWIRE, QUAD, MED SWEEP FR 6 was advanced vis Subclav. Vein (Lft and placed in the CS. Kei cement was 19:04:52 visually confirmed under fluoroscopy. 19:05:59 The Subclav. Vein (Lft was manually injected with 10 cc's of contrast. OMNIPAQUE, 350 MG, 50ML 50ML used. 19:06:56 A WIRE, Curiously PROWATER 180CM 180CM was inserted via Subclav. Vein (Lft. 19:11:18 A SAFE SHEATH, FR9, 13CM FR 9 was advanced into the Subclav. Vein (Lft using the Modified Seldinger technique. 19:12:58 A LEAD, ATTAIN PERFORMA STRAIGHT, 88CM 88CM was inserted and positioned in the CS/LV. 19:13:03 Lead placement verified under fluoroscopy 19:13:05 The CS/LV lead impedance and threshold is being tested. 19:30:29 LV LEAD REPOSITIONED 19:40:28 The CS/LV lead was sutured to the fascia. 19:40:54 The CS/LV lead impedance and threshold is being tested. 19:40:56 The CS/LV lead was sutured to the fascia. 19:42:34 ALL Catheter(s) removed without difficulty 19:43:00 Pocket flushed with antibiotic solution 19:43:01 A DEFIBRILLATOR, ILIVIA 7 HF-T QP was connected and placed in the pocket. SECOND Sponge And Instrument Count Done by Selena Hernandez, RT(R) TECH2. 19:43:10 Hypo's: 2, Sponges: 20, Bovie/scratch: 2 Sutures: 10, Blades: 1, Instruments: 26, Syveck Patches: ~SYVECK PATCH~ VERIFIED BY PAM Tolbert 19:43:36 The pocket was closed. 19:43:38 Implant Procedure was performed. 19:43:44 A Bivent ICD Implant . (Dual) UPGRADE. ICD TO BIV 19:55:00 Case End 20:05:19 Sterile dressing applied to site 20:05:20 No case complications noted. 20:05:21 Cine recording checked. 20:05:22 Bedside Report will be given. 20:05:47 PACU called. Spoke to PA 20:06:03 Patient moved to [facility] End Study - Contrast Media Used In Study Contrast Total Opened (mL) Total Used (mL) Total Wasted (mL) Omnipaque 10 10 0 End Study - Radiation Exposure Fluoro Time (minutes) 5.0 End Study - Patient Disposition Complications Transferred To Interventional Outcome No Telemetry Bed successful
[2017-04-17] MEDS ORDERED: PILL SPLITTER OTHER PRN (20:15)
[2017-04-17] MEDS ORDERED: PHENYLEPHRINE HCL 10 MG/ML VIAL ONE (20:23)
[2017-04-17] MEDS ORDERED: DO NOT ADM ANY ANTICOAGULANT DRUGS PRN (20:30)
[2017-04-17] MEDS: SODIUM CHLORIDE 0.9% FLUSH 10 ML FLUSH IV FLUSH SCH (21:00)
[2017-04-17 21:37] VITALS: O2SAT 95
--- NOTE | 2017-04-17 21:38 | RADRPT ---
EXAM DATE/TIME: 04/17/2017 20:24 [place] COMPARISON: CHEST SINGLE AP, August 28, 2016, 6:14. INDICATIONS : Post BIV ICD MEDICAL HISTORY : Cardiovascular disease. SURGICAL HISTORY : Pacemaker. ENCOUNTER: Initial ACUITY: 1 day PAIN SCORE: 0/10 LOCATION: chest FINDINGS: There is a multilead pacing device in place from the left subclavian approach. The heart size is enla rged. There are scattered patchy density seen in the mid and lower lungs bilaterally. A significant e ffusion is not seen. CONCLUSION: 1. Multilead biventricular pacemaker in place. A pneumothorax is not seen. 2. Patchy areas of mild increased density at the mid and lower lungs likely related to scattered area s of atelectasis or consolidation. Kit Ding MD on April 17, 2017 at 21:34 Board Certified Radiologist. This report was verified electronically.
[2017-04-17] MEDS: APIXABAN 2.5 MG TABLET PO SCH (22:57)
[2017-04-17] MEDS: SACUBITRIL/VALSARTAN 49 MG-51 MG TAB PO SCH (22:58)
[2017-04-17 23:00] VITALS: PULSE 80
[2017-04-17 23:01] VITALS: BP 92/62; PULSE 80; RESP 18; TEMP 97.9; O2SAT 95
[2017-04-18] VITALS (14 sets, daily range): BP systolic 80–98; BP diastolic 72–99; PULSE 80; RESP 18; TEMP 97.6–98.4; O2SAT 96–99
[2017-04-18] MEDS: ceFAZolin 2 GM PREMIX 50 ML IV SCH ×2 (01:00→09:07)
[2017-04-18 06:52] LABS: APTT (PATIENT) 29.3 SEC (24.3-30.1); INTERNATIONAL NORMALIZED RATIO 1.1 RATIO; PROTHROMBIN TIME - PATIENT 11.4 SEC (9.8-11.6)
[2017-04-18] MEDS ORDERED: CEPH-460 PO (08:44)
--- NOTE | 2017-04-18 08:47 | PD.CARD.PN ---
Subjective Subjective Remarks Feels okay. Objective Medications Current Medications Medications (Trade) Dose Ordered Sig/Kenny Route Start Time Stop Time Status Last Admin Sodium Chloride 1,000 ml @ 30 mls/hr Q24H IV 04/17/17 14:00 04/17/17 20:49 Cefazolin Sodium/ Dextrose 50 ml @ 100 mls/hr ADDICTIONS RECOVERY SPECIALIST IV 04/17/17 14:00 04/20/17 13:59 04/17/17 17:47 Vancomycin HCl 1000 mg/Sodium Chloride 250 ml @ 250 mls/hr ADDICTIONS RECOVERY SPECIALIST IV 04/17/17 14:00 04/20/17 13:59 04/17/17 17:47 (Ativan) 1 mg ADDICTIONS RECOVERY SPECIALIST SL 04/17/17 14:00 04/20/17 13:59 (Betadine 5% Antisepsis Kit) 2 applic ADDICTIONS RECOVERY SPECIALIST EACH NARE 04/17/17 14:00 04/20/17 13:59 04/17/17 14:19 (Bactroban Nasal 2% Oint) 1 applic ADDICTIONS RECOVERY SPECIALIST NASAL 04/17/17 14:00 04/20/17 13:59 (Chlorhexidine 2% Cloth) 3 pack ADDICTIONS RECOVERY SPECIALIST TOPICAL 04/17/17 14:00 04/20/17 13:59 04/17/17 14:19 Lactated Ringer's 1,000 ml @ 30 mls/hr Q24H PRN IV 04/17/17 14:00 04/20/17 13:59 Sodium Chloride 500 ml @ 30 mls/hr [id number] PRN IV 04/17/17 14:00 04/20/17 13:59 (Lopressor) 25 mg ADDICTIONS RECOVERY SPECIALIST PRN PO 04/17/17 14:00 04/20/17 13:59 (Chlorhexidine 2% Cloth) 3 pack ADDICTIONS RECOVERY SPECIALIST PRN TOPICAL 04/17/17 14:00 04/20/17 13:59 (Percocet 5-325 Mg) 1 tab Q4H PRN PO 04/17/17 20:00 (Percocet 5-325 Mg) 2 tab Q4H PRN PO 04/17/17 20:00 (Ativan Inj) 0.5 mg UNSCH PRN IV PUSH 04/17/17 20:00 04/18/17 19:59 (Atropine Inj) 0.5 mg UNSCH PRN IV PUSH 04/17/17 20:00 Sodium Chloride 250 ml @ 500 mls/hr ONCE PRN IV 04/17/17 20:00 04/18/17 19:59 (Zofran Inj) 4 mg Q4H PRN IV PUSH 04/17/17 20:00 (Xylocaine 1% Inj (50 ml)) 10 ml UNSCH PRN INFIL 04/17/17 20:00 04/18/17 19:59 Cefazolin Sodium/ Dextrose 50 ml @ 100 mls/hr Q8H IV 04/18/17 01:00 04/18/17 17:29 04/18/17 01:00 (NS Flush) 2 ml BID IV FLUSH 04/17/17 21:00 04/17/17 21:00 (NS Flush) 2 ml UNSCH PRN IV FLUSH 04/17/17 20:00 (Eliquis) 2.5 mg BID PO 04/17/17 21:00 04/17/17 22:57 (Allbee C) 1 tab DAILY PO 04/18/17 09:00 (Lasix) 40 mg DAILY PO 04/18/17 09:00 (Mag-Ox) 400 mg DAILY@12 PO 04/18/17 12:00 (Entresto 49-51 Mg) 1 tab BID PO 04/17/17 21:00 04/17/17 22:58 (Aldactone) 12.5 mg DAILY PO 04/18/17 09:00 (Pill Splitter) 1 ea UNSCH PRN OTHER 04/17/17 20:15 Miscellaneous Information ALL NURSING DEPARTME... UNSCH PRN .XX 04/17/17 20:30 04/18/17 20:29 Vital Signs / I&O Vital Signs Date Time Temp Pulse Resp B/P (MAP) Pulse Ox O2 Delivery O2 Flow Rate FiO2 04/18/17 06:00 80 04/18/17 05:00 80 04/18/17 04:00 80 04/18/17 03:22 98.4 80 18 98/80 (86) 96 04/18/17 03:00 80 04/18/17 02:00 80 04/18/17 01:00 80 04/18/17 00:00 80 04/18/17 00:00 98.0 80 18 94/72 (79) 96 04/17/17 23:01 97.9 80 18 92/62 (72) 95 04/17/17 23:00 80 04/17/17 21:37 95 Nasal Cannula 2.00 04/17/17 21:00 80 18 99/52 (68) 95 Nasal Cannula 2 04/17/17 20:45 80 18 104/57 (73) 95 Nasal Cannula 2 04/17/17 20:30 97.6 80 22 96/59 (71) 97 Nasal Cannula 2 04/17/17 20:15 97.6 80 22 97/54 (68) 97 Nasal Cannula 2 04/17/17 13:40 97.6 90 18 127/90 (102) 96 I/O 04/17/17 04/17/17 04/17/17 04/18/17 04/18/17 04/18/17 07:00 15:00 23:00 07:00 15:00 23:00 Intake Total 480 ml Balance 480 ml Intake Oral 480 ml Physical Exam GENERAL: Well-nourished, well-developed patient. SKIN: Warm and dry. Left chest wall incision well approximated without erythema or drainage. Groin site soft without bruising or bleeding. HEAD: Normocephalic. EYES: No scleral icterus. No injection or drainage. NECK: Supple, trachea midline. No JVD or lymphadenopathy. CARDIOVASCULAR: Regular rate and rhythm without murmurs, gallops, or rubs. RESPIRATORY: Breath sounds equal bilaterally. No accessory muscle use. GASTROINTESTINAL: Abdomen soft, non-tender, nondistended. EXTREMITIES: No cyanosis, or edema. NEUROLOGICAL: Awake, alert, and oriented x 3. Non-focal. Laboratory Laboratory Tests Test 04/17/17 13:55 04/18/17 06:21 White Blood Count 7.4 TH/MM3 Red Blood Count 4.80 MIL/MM3 Hemoglobin 15.6 GM/DL Hematocrit 46.7 % Mean Corpuscular Volume 97.3 FL Mean Corpuscular Hemoglobin 32.6 PG Mean Corpuscular Hemoglobin Concent 33.5 % Red Cell Distribution Width 15.0 % Platelet Count 168 TH/MM3 Mean Platelet Volume 8.2 FL Neutrophils (%) (Auto) 73.3 % Lymphocytes (%) (Auto) 14.5 % Monocytes (%) (Auto) 9.4 % Eosinophils (%) (Auto) 2.2 % Basophils (%) (Auto) 0.6 % Neutrophils # (Auto) 5.4 TH/MM3 Lymphocytes # (Auto) 1.1 TH/MM3 Monocytes # (Auto) 0.7 TH/MM3 Eosinophils # (Auto) 0.2 TH/MM3 Basophils # (Auto) 0.0 TH/MM3 CBC Comment DIFF FINAL Differential Comment Prothrombin Time 11.2 SEC 11.4 SEC Prothromb Time International Ratio 1.1 RATIO 1.1 RATIO Activated Partial Thromboplast Time 29.4 SEC 29.3 SEC Blood Urea Nitrogen 20 MG/DL Creatinine 1.34 MG/DL Random Glucose 99 MG/DL Calcium Level 9.3 MG/DL Sodium Level 140 MEQ/L Potassium Level 3.7 MEQ/L Chloride Level 105 MEQ/L Carbon Dioxide Level 26.3 MEQ/L Anion Gap 9 MEQ/L Estimat Glomerular Filtration Rate 51 ML/MIN Imaging Last Impressions Chest X-Ray 04/17/17 0000 Signed Impressions: Service Date/Time: , April 17, 2017 20:24 - CONCLUSION: 1. Multilead biventricular pacemaker in place. A pneumothorax is not seen. 2. Patchy areas of mild increased density at the mid and lower lungs likely related to scattered areas of atelectasis or consolidation. Kit Ding MD Assessment and Plan Problem List: (1) Cardiomyopathy ICD Codes: I42.9 - Cardiomyopathy Status: Acute Plan: Stable status post ICD implantation for cardiac resynchronization and sudden cardiac prevention. Discharge home. Follow-up with Dr. cortez in 2 weeks per my discussion with him. (2) Atrial fibrillation ICD Codes: I48.91 - Atrial fibrillation Status: Chronic Plan: Continue eliquis. Discharge home. Jazmine oFrd Apr 18, 2017 08:47
[2017-04-18] MEDS ORDERED: IOHEXOL 350 MG/ML 50 ML BTL (for Cath Lab) OTHER ONE (08:56)
[2017-04-18] MEDS ORDERED: FUROSEMIDE 40 MG TAB PO SCH (09:00)
[2017-04-18] MEDS ORDERED: VITAMIN B COMPLEX/VIT C TAB PO SCH (09:00)
[2017-04-18] MEDS ORDERED: SPIRONOLACTONE 25 MG TAB PO SCH (09:00)
[2017-04-18] MEDS: APIXABAN 2.5 MG TABLET PO SCH (09:11)
[2017-04-18] MEDS: SACUBITRIL/VALSARTAN 49 MG-51 MG TAB PO SCH (09:11)
[2017-04-18] MEDS: SODIUM CHLORIDE 0.9% FLUSH 10 ML FLUSH IV FLUSH SCH (09:11)
[2017-04-18] MEDS ORDERED: MAGNESIUM OXIDE 400 MG TAB PO SCH (12:00)
--- NOTE | 2017-04-18 16:04 | EKG ---
Date Performed: 04/17/2017 Time Performed: 14:15:12 PTAGE: 81 years EKG: Sinus rhythm . Extensive T wave changes Normal ECG Compared to PREVIOUS TRACING , the patient is no paced. PREVIOUS TRACIN03/15/2017 07.01 DOCTOR: Mohini Still Interpretating Date/Time 04/18/2017 16:03:53
--- NOTE | 2017-04-18 16:05 | EKG ---
Date Performed: 04/18/2017 Time Performed: 06:54:24 PTAGE: 81 years EKG: Ventricular pacing Pacemaker rhythm - no further analysis Abnormal ECG Since PREVIOUS TRACING , no significant change noted PREVIOUS TRACIN04/17/2017 20.32 DOCTOR: Mohini Still Interpretating Date/Time 04/18/2017 16:05:03
--- NOTE | 2017-04-18 16:05 | EKG ---
Date Performed: 04/17/2017 Time Performed: 20:32:15 PTAGE: 81 years EKG: AV PACED Compared to previous tracing, the patient is now AV paced or Ventricular paced. AB NORMAL RHYTHM ECG PREVIOUS TRACING : 04/17/2017 14.15 DOCTOR: Mohini Still Interpretating Date/Time 04/18/2017 16:04:38
== END 2017-04-18 11:35 | disposition home or self-care (01) | DRG 227 ==
LOC: HDOC 13:32 → HDIC 13:33 → HDOC 21:17 → HCIS 21:18
PROVIDERS: ADMIT Internal Medicine Interventional Cardiology; ATTEND Internal Medicine Interventional Cardiology
PROC: 02HL3KZ Insertion of Defibrillator Lead into Left Ventricle, Percutaneous Approach (ICD-10-PCS; 2017-04-17)
PROC: 0JPT0PZ Removal of Cardiac Rhythm Related Device from Trunk Subcutaneous Tissue and Fascia, Open Approach (ICD-10-PCS; 2017-04-17)
PROC: 02583ZZ Destruction of Conduction Mechanism, Percutaneous Approach (ICD-10-PCS; 2017-04-17)
PROC: 4A023FZ Measurement of Cardiac Rhythm, Percutaneous Approach (ICD-10-PCS; 2017-04-17)
PROC: 4A0234Z Measurement of Cardiac Electrical Activity, Percutaneous Approach (ICD-10-PCS; 2017-04-17)
PROC: 0JH609Z Insertion of Cardiac Resynchronization Defibrillator Pulse Generator into Chest Subcutaneous Tissue and Fascia, Open Approach (ICD-10-PCS; principal; 2017-04-17 12:00)
DX: I48.3 Typical atrial flutter (principal); I42.9 Cardiomyopathy, unspecified; I48.91 Unspecified atrial fibrillation
CPT/HCPCS: 33224; 33249; 71010; 80048; 85025; 85610; 85730; 86850; 86900; 86901; 93005; 93613; 93620; 93623; 93650; C1730; C1732; C1769; C1882; C1900; C2630; J0690; J1644; J2370; J3370; J7030; J7050; Q9967

== ENCOUNTER 2017-08-09 14:06 | Emergency (ER) | payer MEDICARE ==
[~2017-08-09] VITALS: Ht 177.8 cm; Wt 125.0 kg
[~2017-08-09 14:06] MED LIST changes: -ALLO300T2 PO; +CEPH-460 PO; -DOFE250 PO; -FURO20TA PO; +FURO40TA PO; -OXYC1TAB36 PO; -SACU1TAB PO; +SACU1TAB7 PO
[2017-08-09 14:10] VITALS: BP 119/61; PULSE 80; RESP 16; TEMP 97.5; O2SAT 94
[2017-08-09] MEDS ORDERED: ALEV220T14 PO (14:28)
[2017-08-09] MEDS ORDERED: APIX5TAB PO (14:28)
[2017-08-09] MEDS ORDERED: diphenhydrAMINE HCL 50 MG CAP PO ONE (14:45)
--- NOTE | 2017-08-09 14:52 | PD ---
HPI Chief Complaint: Skin Problem Time Seen by Provider: 14:20 Travel History International Travel<30 days: No Contact w/Intl Traveler<30days: No Traveled to known affect area: No History of Present Illness HPI 81yo M with PMH of afib on eliquis here with c/o itchy rash for 2 months. Said it started in bilateral arms and now is in back and bilateral legs. Pt also noted red rash in left leg that started yesterday. Said rash is also itchy and there is no pain. Denies any fever, chest pain, sob, n/v, abdominal pain, focal weakness or numbness. Denies any trauma. Said left leg has always been a little larger than right and there is no acute changes. Denies any history of DVT, recent surgery or traveling. No mucosal involvement. No new medication or lotion. No lip or tongue swelling. PFSH Past Medical History Arthritis: Yes Asthma: No Autoimmune Disease: No Blood Disorders: No Anxiety: No Depression: No Heart Rhythm Problems: Yes (AFIB) Cancer: No Cardiovascular Problems: Yes (CARDIOVERT IMPLANT) High Cholesterol: No Chemotherapy: No Chest Pain: No Congestive Heart Failure: No COPD: No Cerebrovascular Accident: No Diabetes: No Endocrine: No Gastrointestinal Disorders: No GERD: No Glaucoma: No Genitourinary: Yes (RAY) Hepatitis: No Hiatal Hernia: No Hypertension: Yes Immune Disorder: No Implanted Vascular Access Dvce: Yes Kidney Stones: No Medical other: Yes Musculoskeletal: Yes (ANKLOSPONDILOSIS) Neurologic: No Psychiatric: No Reproductive: No Respiratory: Yes (DYSPNEA) Migraines: No Radiation Therapy: No Renal Failure: No Seizures: No Sickle Cell Disease: No Sleep Apnea: No Thyroid Disease: No Ulcer: No Influenza Vaccination: No Past Surgical History Abdominal Surgery: No AICD: Yes (09/29/2015) Arteriovenous Shunt: No Body Medical Devices: CARDIOVERTER Cardiac Surgery: Yes (3 ablations 0ct 2014May 2015) Ear Surgery: No Endocrine Surgery: No Eye Surgery: Yes (LASIK SURGERY) Genitourinary Surgery: No Gynecologic Surgery: No Insulin Pump: No Joint Replacement: Yes (BILATERAL PARTIAL KNEE) Oral Surgery: No Pacemaker: Yes Thoracic Surgery: Yes Other Surgery: Yes Social History Alcohol Use: Yes (couple a drink) Tobacco Use: No Substance Use: No Allergies-Medications (Allergen,Severity, Reaction): Coded Allergies: amiodarone (Verified Allergy, Intermediate, Itching, 08/09/17) Reported Meds & Prescriptions Reported Meds & Active Scripts Active Diphenhydramine (Diphenhydramine HCl) 25 Mg Cap 25 Mg PO Q6H 5 Days Spironolactone 25 Mg Tab 12.5 Mg PO DAILY Magnesium Oxide 241.3 Mg Tab 400 Mg PO DAILY@12 Reported Aleve Arthritis (Naproxen Sodium) 220 Mg Tab 440 Mg PO DAILY Eliquis (Apixaban) 5 Mg Tab 5 Mg PO BID Furosemide 40 Mg Tab 40 Mg PO DAILY Entresto (Sacubitril-Valsartan) 49-51 Mg Tab 1 Tab PO BID [liver support] 250 Mg PO DAILY Vitamin B Complex-C (B Complex W/ C) 1 Cap Cap 1 Tab PO DAILY Review of Systems Except as stated in HPI: all other systems reviewed are Neg Physical Exam Narrative GENERAL: 81yo M not in distress. SKIN: Scattered diffuse macules in bilateral arms, looks like scratch stoner in lower back but pt denies scratching. HEAD: Atraumatic. Normocephalic. EYES: Pupils equal and round. No scleral icterus. No injection or drainage. ENT: No nasal bleeding or discharge. Mucous membranes pink and moist. Mouth: No mucosal involvement. NECK: Trachea midline. No JVD. CARDIOVASCULAR: Regular rate and rhythm. No murmur appreciated. RESPIRATORY: No accessory muscle use. Clear to auscultation. Breath sounds equal bilaterally. GASTROINTESTINAL: Abdomen soft, non-tender, nondistended. Hepatic and splenic margins not palpable. MUSCULOSKELETAL: Trace bilateral lower extremity edema. LLE: Erythema medial dorsal aspect of left tibia. Not warm to touch. Not tender to touch. Not blanching. DP2+. FROM in left hip, knee and ankle. Sensation intact. NEUROLOGICAL: Awake and alert. No obvious cranial nerve deficits. Motor grossly within normal limits. Normal speech. PSYCHIATRIC: Appropriate mood and affect; insight and judgment normal. Data Data Last Documented VS Vital Signs Date Time Temp Pulse Resp B/P (MAP) Pulse Ox O2 Delivery O2 Flow Rate FiO2 08/09/17 15:45 80 18 119/75 (90) 96 Room Air 08/09/17 14:10 97.5 Orders Orders Complete Blood Count With Diff (08/09/17 14:37) Prothrombin Time / Inr (Pt) (08/09/17 14:37) Act Partial Throm Time (Ptt) (08/09/17 14:37) Diphenhydramine (Benadryl) (08/09/17 14:45) Ed Discharge Order (08/09/17 16:05) Labs Laboratory Tests Test 08/09/17 14:50 White Blood Count 10.6 TH/MM3 Red Blood Count 4.57 MIL/MM3 Hemoglobin 15.2 GM/DL Hematocrit 44.0 % Mean Corpuscular Volume 96.2 FL Mean Corpuscular Hemoglobin 33.2 PG Mean Corpuscular Hemoglobin Concent 34.5 % Red Cell Distribution Width 15.3 % Platelet Count 165 TH/MM3 Mean Platelet Volume 8.0 FL Neutrophils (%) (Auto) 95.2 % Lymphocytes (%) (Auto) 3.6 % Monocytes (%) (Auto) 0.9 % Eosinophils (%) (Auto) 0.1 % Basophils (%) (Auto) 0.2 % Neutrophils # (Auto) 10.1 TH/MM3 Lymphocytes # (Auto) 0.4 TH/MM3 Monocytes # (Auto) 0.1 TH/MM3 Eosinophils # (Auto) 0.0 TH/MM3 Basophils # (Auto) 0.0 TH/MM3 CBC Comment DIFF FINAL Differential Comment Prothrombin Time 12.0 SEC Prothromb Time International Ratio 1.2 RATIO Activated Partial Thromboplast Time 32.6 SEC MDM Medical Decision Making Medical Screen Exam Complete: Yes Emergency Medical Condition: Yes Differential Diagnosis Dermatitis vs. vasculitis vs. unlikely cellulitis Narrative Course 81yo well appearing male here with itchy rash for 2 months. He has a new red rash in left lower extremity that is itchy. Will give diphenhydramine. Pt is insistent on having lab work done so will check platelet count and coagulation since this seems like a vasculitis to me. Labs reviewed, no leukocytosis. H/H normal. Platelet count normal. No significant coag abnormality. Pt given diphenhydramine and said he feels better. Itching has improved. He is non toxic appearing and has appointment with coating mixer supervisor. Return precautions given. Diagnosis Primary Impression: Rash Patient Instructions: General Instructions Departure Forms: Tests/Procedures Additional Instructions: Please follow up with your coating mixer supervisor at your next appointment. Return to the ED if symptoms worsen. Med/Other Pt SpecificInfo: Prescription(s) given Scripts Diphenhydramine (Diphenhydramine) 25 Mg Cap 25 MG PO Q6H for Itching for 5 Days, #20 CAP 0 Refills Prov: Alva Mendoza DO 08/09/17 Disposition: 01 DISCHARGE HOME Condition: Stable Alva Mendoza DO Aug 09, 2017 14:52
[2017-08-09 15:17] LABS: AUTOMATED NEUTROPHIL # 10.1 TH/MM3 (1.8-7.7); BASOPHIL % 0.2 % (0.0-2.0); EOSINOPHIL % 0.1 % (0.0-4.0); HEMOGLOBIN 15.2 GM/DL (13.0-17.0); LYMPH % 3.6 % (9.0-44.0); LYMPHOCYTE # 0.4 TH/MM3 (1.0-4.8); MEAN CELL VOLUME 96.2 FL (80.0-100.0); MEAN CORPUSCULAR HEMOGLOBIN 33.2 PG (27.0-34.0); MEAN CORPUSCULAR HGB CONC 34.5 % (32.0-36.0); MONO % 0.9 % (0.0-8.0); MONOCYTE # 0.1 TH/MM3 (0-0.9); NEUT % 95.2 % (16.0-70.0); PLATELET COUNT 165 TH/MM3 (150-450); RED BLOOD COUNT 4.57 MIL/MM3 (4.50-5.90); RED CELL DISTRIBUTION WIDTH 15.3 % (11.6-17.2); WHITE BLOOD COUNT 10.6 TH/MM3 (4.0-11.0)
[2017-08-09 15:18] LABS: INTERNATIONAL NORMALIZED RATIO 1.2 RATIO
[2017-08-09 15:45] VITALS: BP 119/75; PULSE 80; RESP 18; O2SAT 96
[2017-08-09] MEDS ORDERED: DIPH25CA PO (16:05)
== END 2017-08-09 16:16 | disposition home or self-care (01) ==
LOC: PHED 14:06
DX: R21 Rash and other nonspecific skin eruption (principal); I48.91 Unspecified atrial fibrillation; Z79.01 Long term (current) use of anticoagulants
CPT/HCPCS: 85025; 85610; 85730; 99283; Q0163